=== PATIENT | female | born 1955 | race Caucasian/White ===

== ENCOUNTER 2018-07-01 09:25 | Inpatient (IN) | payer MEDICAID ==
[~2018-07-01] VITALS: Ht 165.1 cm; Wt 73.7 kg
[2018-07-01] MEDS ORDERED: CEFEPIME 2GM/50 ML (PMX) 50 ML IVPB STA (09:55)
[2018-07-01] MEDS ORDERED: VANCOMYCIN 1 GM (PMX) 250 ML IVPB ONE (10:00)
--- NOTE | 2018-07-01 11:28 | ERD ---
ER Documentation Chief Complaint Chief Complaint pt has leg wound with pus and redness x 3 months HPI This is a 62-year-old female who is here with a large right leg wound. She says that she felt like something bit her and she started scratching it. It started as a small bump but is progressively gotten worse over the past 3 months. She does not have any healthcare so she did not seek attention sooner. Now her wound has gradually spread and eroded into her soft tissue all across the anterior lateral part of her lower leg. She is denying any fever but has some mild pain. ROS All systems reviewed and are negative except as per history of present illness. Medications Home Meds No Active Prescriptions or Reported Meds Allergies Allergies: Coded Allergies: No Known Allergy (Unverified , 07/01/18) PMhx/Soc Medical and Surgical Hx: pt denies Surgical Hx History of Surgery: No Hx Neurological Disorder: No Hx Respiratory Disorders: No Hx Cardiac Disorders: Yes (HTN?) Hx Psychiatric Problems: No Hx Miscellaneous Medical Probl: No Hx Alcohol Use: No Hx Substance Use: No Hx Tobacco Use: No Smoking Status: Never smoker FmHx Family History: No coronary disease Physical Exam Vitals Vital Signs Date Temp Pulse Resp B/P (MAP) Pulse Ox O2 O2 Flow FiO2 Time Delivery Rate 07/01/18 97.6 90 18 180/89 100 09:30 (119) Physical Exam Const: Well-developed, well-nourished Head: Atraumatic, normocephalic Eyes: Normal Conjunctiva, PERRLA, EOMI, normal sclera, no nystagmus ENT: Normal External Ears, Nose and Mouth, moist mucus membranes. Neck: Full range of motion. No meningismus, no lymphadenopathy. Resp: Clear to auscultation bilaterally, no wheezing, rhonchi, rales Cardio: Regular rate and rhythm, no murmurs, S1 S2 present Abd: Soft, non tender x 4, non distended. Normal bowel sounds, no guarding or rebound, no pulsitile abdominal masses or bruits Skin: No petechiae or rashes, no ecchymosis , no maculopapular rash Back: No midline or flank tenderness Ext: No cyanosis, or edema, FROM x 4, the right lower leg has a very large area of finally demarcated but irregular shaped wound margins with severe erosion of the skin underneath with exposed muscle and subcutaneous tissue with granulation tissue. Wound margins are approximately 6 x 10 inches, neurovascularly intact x 4 Neur: Awake and alert, STR 5/5 x 4, sensation intact x 4, no focal findings, cerebellum intact Psych: Normal Mood and Affect Result Diagram: 07/01/1850 07/01/18 0950 Results 24 hrs Laboratory Tests Test 07/01/18 09:50 07/01/18 09:55 White Blood Count 11.5 10^3/ul Red Blood Count 4.32 10^6/ul Hemoglobin 12.7 g/dl Hematocrit 41.4 % Mean Corpuscular Volume 95.8 fl Mean Corpuscular Hemoglobin 29.4 pg Mean Corpuscular Hemoglobin Concent 30.7 g/dl Red Cell Distribution Width 12.5 % Platelet Count 257 10^3/UL Mean Platelet Volume 9.0 fl Immature Granulocytes % 0.400 % Neutrophils % 75.9 % Lymphocytes % 12.3 % Monocytes % 9.0 % Eosinophils % 1.6 % Basophils % 0.8 % Nucleated Red Blood Cells % 0.0 /100WBC Immature Granulocytes # 0.050 10^3/ul Neutrophils # 8.7 10^3/ul Lymphocytes # 1.4 10^3/ul Monocytes # 1.0 10^3/ul Eosinophils # 0.2 10^3/ul Basophils # 0.1 10^3/ul Nucleated Red Blood Cells # 0.0 10^3/ul Sodium Level 141 mmol/L Potassium Level 4.0 mmol/L Chloride Level 101 mmol/L Carbon Dioxide Level 29 mmol/L Anion Gap 11 Blood Urea Nitrogen 9 mg/dl Creatinine 0.40 mg/dl Est Glomerular Filtrat Rate mL/min > 60 mL/min Glucose Level 122 mg/dl Calcium Level 9.5 mg/dl Total Bilirubin 0.4 mg/dl Direct Bilirubin 0.00 mg/dl Indirect Bilirubin 0.4 mg/dl Aspartate Amino Transf (AST/SGOT) 22 IU/L Alanine Aminotransferase (ALT/SGPT) 15 IU/L Alkaline Phosphatase 110 IU/L Total Protein 7.9 g/dl Albumin 4.1 g/dl Globulin 3.80 g/dl Albumin/Globulin Ratio 1.07 POC Venous Lactate 1.4 mmol/L Current Medications Medications Dose Sig/Juan Start Time Status Last (Trade) Ordered Route PRN Stop Time Admin Dose Reason Admin Cefepime HCl 50 ml @ ONCE STAT 07/01/18 DC 07/01/18 100 mls/hr IVPB 09:55 10:09 07/01/18 10:24 Vancomycin 250 ml @ ONCE ONCE 07/01/18 07/01/18 HCl 125 mls/hr IVPB 10:00 10:28 07/01/18 11:59 Procedures/MDM The patient may have been bitten by a spider, perhaps of brown recluse due to the severe ulcerative lesion she has on her leg. She needs to be admitted to the hospital for IV antibiotic therapy with wound care. May need CT or MRI of her leg as well. Will admit to panel. Departure Diagnosis: Primary Impression: Open leg wound Encounter type: initial encounter Laterality: right Qualified Codes: S81.801A - Unspecified open wound, right lower leg, initial encounter Condition: Stable JUAN MÉNDEZ DO Jul 01, 2018 11:28
[2018-07-01] MEDS ORDERED: ACETAMINOPHEN 325 MG TAB PO PRN ×2 (12:00→13:00)
[2018-07-01] MEDS ORDERED: ONDANSETRON 4 MG INJ IV PRN ×2 (12:00→13:00)
--- NOTE | 2018-07-01 12:28 | HP ---
Date/Time of Note Date/Time of Note DATE: 07/01/18 TIME: 12:28 Assessment/Plan VTE Prophylaxis Pharmacological prophylaxis: NA/contraindicated Pharm contraindication: surgical contra Lines/Catheters IV C[facility]ter Type (from [facility]): [facility] Assessment/Plan Hospital Course 62-year-old female who denies any significant past medical history other than hypertension (not taking antihypertensives), who came to the emergency room with right lower extremity wound/ulcer that has been progressively becoming worse over the past 3 months, who will be admitted to inpatient setting for further treatment and evaluation. 1. Right lower extremity soft tissue skin infection. -Etiology unclear. -Differentials include necrotizing fasciitis Vs pyoderma gangrenosum Vs clostridial myonecrosis Vs pyomyositis. -Given the slow progress, the diagnosis does not favor necrotizing infection. -Obtain stat CT scan of the right lower extremity. -Start the patient on carbapenem+Vanco for MRSA coverage+Clindamycin (for its antitoxin and other effects against toxin-elaborating strains of streptococci and staphylococci). -Obtain surgical consult and infectious diseases consult. 2. Hypertension. -Will start the patient on appropriate antihypertensives. Plan: The patient will be admitted to inpatient medical surgical floor. The patient will be kept n.p.o. except for medications in anticipation for any surgical exploration.. The patient will be started on DVT prophylaxis. The patient will remain a full code. Activities will be bedrest. The rest of the patient's management will be based on the clinical course, inputs from consultants, and the results of diagnostic studies. Based on the patient's clinical presentation, she most probably requires more than 2 midnights stay for further management and evaluation of her clinical presentation. The patient was seen in collaboration with Dr. Varela. Result Diagram: 07/01/18 0950 07/01/18 0950 Results 24hrs Laboratory Tests Test 07/01/18 09:50 07/01/18 09:55 White Blood Count 11.5 H Red Blood Count 4.32 Hemoglobin 12.7 Hematocrit 41.4 Mean Corpuscular Volume 95.8 Mean Corpuscular Hemoglobin 29.4 Mean Corpuscular Hemoglobin Concent 30.7 L Red Cell Distribution Width 12.5 Platelet Count 257 Mean Platelet Volume 9.0 Immature Granulocytes % 0.400 Neutrophils % 75.9 Lymphocytes % 12.3 L Monocytes % 9.0 Eosinophils % 1.6 Basophils % 0.8 Nucleated Red Blood Cells % 0.0 Immature Granulocytes # 0.050 H Neutrophils # 8.7 H Lymphocytes # 1.4 Monocytes # 1.0 H Eosinophils # 0.2 Basophils # 0.1 Nucleated Red Blood Cells # 0.0 Sodium Level 141 Potassium Level 4.0 Chloride Level 101 Carbon Dioxide Level 29 Anion Gap 11 Blood Urea Nitrogen 9 Creatinine 0.40 L Est Glomerular Filtrat Rate mL/min > 60 Glucose Level 122 Calcium Level 9.5 Total Bilirubin 0.4 Direct Bilirubin 0.00 Indirect Bilirubin 0.4 Aspartate Amino Transf (AST/SGOT) 22 Alanine Aminotransferase (ALT/SGPT) 15 Alkaline Phosphatase 110 Total Protein 7.9 Albumin 4.1 Globulin 3.80 H Albumin/Globulin Ratio 1.07 POC Venous Lactate 1.4 HPI/ROS Admit Date/Time Admit Date/Time Hx of Present Illness Reason for admission: Worsening right leg wound. Consultants. 1 Sam Turk MD, Infectious Diseases. 2. Yusef Grullon DPM, Podiatry. This is a 62-year-old female who denies any significant past medical history other than history of hypertension, but not on any antihypertensives. The patient verbalized that she had some kind of insect bite to the right anaya approximately 3 months ago. Afterwards, she had a pimple-like lesion that grew gradually to become a big ulcer. The patient was complaining of significant pain in the area. The wound/ulcer was also draining purulent secretions. The patient has been in denial versus was ignoring this ulcer/wound until it became worse. The patient verbalized that she did not have any healthcare insurance and hence she delayed seeking medical attention. The patient denied any fevers or chills. In the emergency room, the patient was noticed to have minimal leukocytosis. The patient did not have any lactic acidosis. The patient's blood pressure was elevated (180/89). The patient was treated with a single dose of IV vancomycin and cefepime in the emergency room. ROS Constitutional: no complaints Eyes: no complaints ENT: no complaints Respiratory: no complaints Cardiovascular: no complaints Gastrointestinal: no complaints Genitourinary: no complaints Musculoskeletal: bone/joint pain, swelling Skin: skin lesions Neurologic: no complaints Endocrine: no complaints Lymphatic: no complaints Psychological: no complaints Immunologic: no complaints PMH/Family/Social Past Medical History 1. Hypertension, not on any antihypertensives. Medications Current Medications Ondansetron HCl (Zofran Inj) 4 mg BRIDGE ORDER PRN IV NAUSEA/VOMITING; Start 07/01/18 at 12:00; Stop 07/02/18 at 11:59 Acetaminophen (Tylenol Tab) 650 mg ER BRIDGE PRN PO .MILD PAIN 1-3 OR TEMP; Start 07/01/18 at 12:00; Stop 07/02/18 at 11:59 Coded Allergies: No Known Allergy (Unverified , 07/01/18) Past Surgical History Past Surgical Hx: no surgical history Family History Significant Family History: no pertinent family hx Social History Works as a caregiver. Alcohol Use: none Smoking Status: Never smoker Drug Use: none Exam/Review of Systems Vital Signs Vitals Vital Signs Date Temp Pulse Resp B/P (MAP) Pulse Ox O2 O2 Flow FiO2 Time Delivery Rate 07/01/18 97.8 74 18 162/93 100 Room Air 11:09 (116) Exam Exam General: Adequately build 62 year-old female lying in bed in no apparent distress. HEENT: Normocephalic, atraumatic. Eyes: Anicteric sclerae, conjunctivae clear. ENT: Nasal septum midline, oral mucosa moist. Neck supple, no JVD noticed. Respiratory: Bilaterally clear breath sounds. No use of accessory muscles of respiration. No adventitious breath sounds. Cardiovascular: S1, S2 heard. Regular rate and rhythm. Abdomen: Soft, nontender, and nondistended. Bowel sounds positive in all 4 quadrants. Genitourinary: Deferred. Extremities: No cyanosis, no clubbing. Large right lower extremity wound on the anaya on the lateral aspect with exposure of deep tissues. Peripheral pulses palpable. Neurologic: Cranial nerves II through XII grossly intact. The patient is awake, alert, and oriented. RENÉE TOLEDO NP Jul 01, 2018 12:28
[2018-07-01] MEDS ORDERED: NACL 0.9% 3 ML SYG IV SCH (13:00)
[2018-07-01] MEDS ORDERED: VANCOMYCIN IV PER PHARMACY XX SCH (13:00)
[2018-07-01] MEDS ORDERED: SOD CHLORIDE 0.9% 100 ML ONE (13:05)
[2018-07-01] MEDS ORDERED: IOHEXOL 300MG/ML 150 ML BTL ONE (13:05)
[2018-07-01] MEDS ORDERED: TETANUS IMMUNE GLOB 250 UNIT SYG IM ONE (13:30)
[2018-07-01] MEDS: CLINDAMYCIN 900 MG/D5W (PMX) 50 ML IVPB SCH ×2 (13:37→17:57)
[2018-07-01] MEDS: SOD CHLORIDE 0.9% 1,000 ML IV SCH ×2 (13:37→23:00)
[2018-07-01] MEDS: LOSARTAN 25 MG TAB PO SCH (13:37)
--- NOTE | 2018-07-01 14:54 | CONS ---
Assessment/Plan Assessment/Plan Assessment/Plan (Daily) Chronic Right lower extremity ulceration mixed etiology RLE cellulitis Venous insufficiency Edema Leukocytosis Plan Patient is admitted and recommend initiation of empiric IV antibiotic therapy. MRI and CT images were reviewed and no sign of osteomyelitis and no soft tissue gas. Plan for tuesday procedure of wound debridement and biopsy. Wound cultures to be obtained and non invasive vascular studies and venous studies pending. Dressing changes daily with dakins irrigation, betadine 4x4 gauze and wrap with kerlix and anderson wrap. Elevate and offload with pillows. Appreciate ID recommendations. Consultation Date/Type/Reason Admit Date/Time Date/Time of Note DATE: 07/01/18 TIME: 14:54 Hx of Present Illness 62 y/o F patient who presents to the ED with a chronic ulcer to the right lower extremity that began three months ago. Patient states she is unsure of how it began but believes it was possibly due to an insect bite. Patient had attempted to manage the ulcer her self with alcohol wipes and topical antibiotic creams but the ulceration worsened over time. Patient states she felt fevers and chills, denies nausea, vomiting, chest pains or shortness of breath. Patient denies trauma to the lower extremity and denies taking any prescribed mediation. Reports mild burning and throbbing pain localized to the area of the wound rating it a 4/10. Pain is worsened with direct pressure. Patient did also relate a vein stripping procedure done 20 years ago, which she did report recurrence of varicosities. ROS Negative except for HPI Past Medical History Medical History: hypertension Home Meds No Active Prescriptions or Reported Meds Medications Current Medications Meropenem/Sodium Chloride 50 ml @ 100 mls/hr Q8 IVPB ; Start 07/01/18 at 14:00 Vancomycin HCl (Vanco Iv Per Pharmacy) VANCOMYCIN PER PHARMACY PER PROTOCOL XX ; Start 07/01/18 at 13:00 Clindamycin HCl/ Dextrose 50 ml @ 50 mls/hr Q6 IVPB Last administered on 07/01/18at 13:37; Admin Dose 50 MLS/HR; Start 07/01/18 at 13:00 Sodium Chloride 1,000 ml @ 100 mls/hr Q10H IV Last administered on 07/01/18at 13:37; Admin Dose 100 MLS/HR; Start 07/01/18 at 13:00 IV Flush (NS 3 ml) 3 ml PER PROTOCOL IV ; Start 07/01/18 at 13:00 Ondansetron HCl (Zofran Inj) 4 mg Q6H PRN IV NAUSEA/VOMITING; Start 07/01/18 at 13:00 Acetaminophen (Tylenol Tab) 650 mg Q6H PRN PO .PAIN 1-3 OR TEMP; Start 07/01/18 at 13:00 Acetaminophen/ Hydrocodone Bitart (Coward (5/325)) 1 tab Q6H PRN PO .MOD PAIN 4- 6; Start 07/01/18 at 13:00 Morphine Sulfate (morphine) 2 mg Q4H PRN IV .SEVERE PAIN 7-10; Start 07/01/18 a t 13:00 Losartan Potassium (Cozaar) 25 mg DAILY PO Last administered on 07/01/18at 13:37; Admin Dose 25 MG; Start 07/01/18 at 13:30 Vancomycin/Sodium Chloride 250 ml @ 125 mls/hr Q12H IVPB ; Start 07/01/18 at 23:00 Allergies: Coded Allergies: No Known Allergy (Unverified , 07/01/18) Past Surgical History Reports vein stripping procedure to bilateral lower extremities 20 years ago. Family History Significant Family History: no pertinent family hx Social History Alcohol Use: none Smoking Status: Never smoker Drug Use: none Exam/Review of Systems Exam Vitals Vital Signs Date Temp Pulse Resp B/P (MAP) Pulse Ox O2 O2 Flow FiO2 Time Delivery Rate 07/01/18 86 18 165/87 100 Room Air 14:26 (113) 07/01/18 97.8 11:09 Exam DP/PT pulses palpable Popliteal pulses weakly palpable Protective sensations intact pedal hairs present Right lateral leg ulcer mid diaphyseal region measuring 12 x 8 x 0.4cm with fibrotic and granular wound base. There is significant slough noted to the ulcer site. There is surrounding erythema, no proximal streaking. Purulence is appreciated within the wound bed, no active drainage. No probing to bone Muscle strength 5/5 in all compartments of the foot No pain with calf squeeze, no pain along achilles tendon, no pain with calcaneus RLE MRI IMPRESSION: No evidence of osteomyelitis. Extensive soft tissue and fascial edema with large wound or ulcer at the anterolateral aspect of the leg. Findings suggest cellulitis/fasciitis RLE CT IMPRESSION: Extensive soft tissue swelling with wound or ulcer at the anterolateral aspect of the leg. No soft tissue gas to suggest necrotizing fasciitis. Mild periosteal reaction or thickening of the distal fibular shaft is age indeterminate. This may be chronic, however consider MRI if there is any concern for osteomyelitis. Results Result Diagram: 07/01/18 0950 07/01/18 0950 Results 24hrs Laboratory Tests Test 07/01/18 09:40 07/01/18 09:50 07/01/18 09:55 Erythrocyte Sedimentation Rate 39 H Hemoglobin A1c 5.1 C-Reactive Protein 4.9 H White Blood Count 11.5 H Red Blood Count 4.32 Hemoglobin 12.7 Hematocrit 41.4 Mean Corpuscular Volume 95.8 Mean Corpuscular Hemoglobin 29.4 Mean Corpuscular Hemoglobin Concent 30.7 L Red Cell Distribution Width 12.5 Platelet Count 257 Mean Platelet Volume 9.0 Immature Granulocytes % 0.400 Neutrophils % 75.9 Lymphocytes % 12.3 L Monocytes % 9.0 Eosinophils % 1.6 Basophils % 0.8 Nucleated Red Blood Cells % 0.0 Immature Granulocytes # 0.050 H Neutrophils # 8.7 H Lymphocytes # 1.4 Monocytes # 1.0 H Eosinophils # 0.2 Basophils # 0.1 Nucleated Red Blood Cells # 0.0 Sodium Level 141 Potassium Level 4.0 Chloride Level 101 Carbon Dioxide Level 29 Anion Gap 11 Blood Urea Nitrogen 9 Creatinine 0.40 L Est Glomerular Filtrat Rate mL/min > 60 Glucose Level 122 Calcium Level 9.5 Total Bilirubin 0.4 Direct Bilirubin 0.00 Indirect Bilirubin 0.4 Aspartate Amino Transf (AST/SGOT) 22 Alanine Aminotransferase (ALT/SGPT) 15 Alkaline Phosphatase 110 Total Protein 7.9 Albumin 4.1 Globulin 3.80 H Albumin/Globulin Ratio 1.07 POC Venous Lactate 1.4 Medications Medication Current Medications Meropenem/Sodium Chloride 50 ml @ 100 mls/hr Q8 IVPB ; Start 07/01/18 at 14:00 Vancomycin HCl (Vanco Iv Per Pharmacy) VANCOMYCIN PER PHARMACY PER PROTOCOL XX ; Start 07/01/18 at 13:00 Clindamycin HCl/ Dextrose 50 ml @ 50 mls/hr Q6 IVPB Last administered on 07/01/18at 13:37; Admin Dose 50 MLS/HR; Start 07/01/18 at 13:00 Sodium Chloride 1,000 ml @ 100 mls/hr Q10H IV Last administered on 07/01/18at 13:37; Admin Dose 100 MLS/HR; Start 07/01/18 at 13:00 IV Flush (NS 3 ml) 3 ml PER PROTOCOL IV ; Start 07/01/18 at 13:00 Ondansetron HCl (Zofran Inj) 4 mg Q6H PRN IV NAUSEA/VOMITING; Start 07/01/18 at 13:00 Acetaminophen (Tylenol Tab) 650 mg Q6H PRN PO .PAIN 1-3 OR TEMP; Start 07/01/18 at 13:00 Acetaminophen/ Hydrocodone Bitart (Coward (5/325)) 1 tab Q6H PRN PO .MOD PAIN 4- 6; Start 07/01/18 at 13:00 Morphine Sulfate (morphine) 2 mg Q4H PRN IV .SEVERE PAIN 7-10; Start 07/01/18 at 13:00 Losartan Potassium (Cozaar) 25 mg DAILY PO Last administered on 07/01/18at 13:37; Admin Dose 25 MG; Start 07/01/18 at 13:30 Vancomycin/Sodium Chloride 250 ml @ 125 mls/hr Q12H IVPB ; Start 07/01/18 at 23:00 KELY PATE DPM Jul 01, 2018 14:54
[2018-07-01] MEDS: MEROPENEM 1 GM/50ML(PMX) 50 ML IVPB SCH ×2 (15:09→21:41)
--- NOTE | 2018-07-01 15:30 | CONS ---
DATE OF ADMISSION: 07/01/2018 DATE OF CONSULTATION: 07/01/2018 TYPE OF CONSULTATION: Infectious disease. REASON FOR CONSULTATION: Antibiotic management. HISTORY OF PRESENT ILLNESS: An Martinez is a 62-year-old female who comes in wit h leg wound, redness and purulence for 3 months. The patient felt that she had something bite her an d started to scratch the wound. It started as a small bump but progressively got worse over the last 3 months and has gradually spread and eroded into her soft tissue along the anterolateral aspect of her lower leg. PAST MEDICAL HISTORY: Positive for hypertension. FAMILY HISTORY: Noncontributory. SOCIAL HISTORY: She does not smoke, drink or abuse drugs. ALLERGIES: None to penicillin, sulfa or foods. MEDICATIONS: Per chart. REVIEW OF SYSTEMS: As per HPI. PHYSICAL EXAMINATION: GENERAL: The patient is a well-developed, well-nourished female who is awake, responsive, in no acut e distress. VITAL SIGNS: Stable. Blood pressure is somewhat elevated 180/89. SKIN: Without generalized rash. HEENT: Within normal limits. NECK: Supple. LYMPH NODES: None palpable. CHEST: Decreased breath sounds at the bases. HEART: Without murmur or gallop. ABDOMEN: Soft, nontender, nondistended, without organosplenomegaly or masses. EXTREMITIES: Right lower leg has a very large area of finely demarcated but irregularly shaped wound margins with severe erosion of the skin underneath with exposed muscle and subcutaneous tissue. Wou nd margin is 6 x 10 inches. RECTAL AND GENITAL: Deferred. NEUROLOGIC: No focal neurological abnormality. LABORATORY DATA: On admission, her white count was 11.5 with 76 neutrophils, H and H 12.7 and 41.4, platelet count 257,000. BUN and creatinine 9/0.4. IMPRESSION AND PLAN: The patient was started on vancomycin and cefepime. My feeling is that she pro bably has MRSA. She may have been bitten by a spider, but I doubt it. She needs IV antibiotics. Sh e may need some imaging studies. She was started on vancomycin, clindamycin and meropenem, which may be some overkill but I think that they were thinking of possibly a necrotizing fasciitis, which I do not think the case. She was started on vancomycin and cefepime and vancomycin, clindamycin and deedee penem. If she is stable for 24 hours, we will deescalate her antibiotics. I will dictate my finding s to the hospitalists. Dictated By: EDUARDO YOUNG MD, JD/WU Conf#: [id number] DID#: [id number]
[2018-07-01] MEDS: HYDROCODONE/APAP (5/325) TAB PO PRN (17:57)
[2018-07-01 18:16] VITALS: BP 143/80; PULSE 86; RESP 18
[2018-07-01 20:21] VITALS: BP 99/57; PULSE 78; RESP 20
[2018-07-01 21:05] VITALS: Ht 165.1 cm; Wt 73.7 kg
[2018-07-01] MEDS: VANCOMYCIN 750 MG (PMX) 250 ML IVPB SCH (23:54)
[2018-07-02] MEDS ORDERED: traZODone 50 MG TAB PO ONE (02:00)
[2018-07-02] MEDS: CLINDAMYCIN 900 MG/D5W (PMX) 50 ML IVPB SCH ×2 (02:05→06:03)
[2018-07-02 02:26] VITALS: BP 102/58; PULSE 78; RESP 20
[2018-07-02] MEDS: MEROPENEM 1 GM/50ML(PMX) 50 ML IVPB SCH ×3 (05:28→21:52)
[2018-07-02 08:13] VITALS: BP 127/69; PULSE 77; RESP 16
[2018-07-02] MEDS: SOD CHLORIDE 0.9% 1,000 ML IV SCH ×2 (08:32→19:00)
[2018-07-02] MEDS: LOSARTAN 25 MG TAB PO SCH (08:32)
--- NOTE | 2018-07-02 10:50 | PN ---
Date/Time of Note Date/Time of Note DATE: 07/02/18 TIME: 10:49 Assessment/Plan VTE Prophylaxis Risk score (from Ns)>0 risk: 5 SCD applied (from [facility] [place]): No SCD contraindicated: other Pharmacological prophylaxis: NA/contraindicated Pharm contraindication: surgical contra Lines/Catheters IV Catheter Type (from [facility]): Peripheral IV Urinary Cath still in place: No Assessment/Plan Hospital Course SUBJECTIVE: Continues to have a low-grade fever. OBJECTIVE: Physical Exam General: Adequately build 62 year-old female lying in bed in no apparent distress. HEENT: Normocephalic, atraumatic. Eyes: Anicteric sclerae, conjunctivae clear. ENT: Nasal septum midline, oral mucosa moist. Neck supple, no JVD noticed. Respiratory: Bilaterally clear breath sounds. No use of accessory muscles of respiration. No adventitious breath sounds. Cardiovascular: S1, S2 heard. Regular rate and rhythm. Abdomen: Soft, nontender, and nondistended. Bowel sounds positive in all 4 quadrants. Genitourinary: Deferred. Extremities: No cyanosis, no clubbing. Large right lower extremity wound on the anaya on the lateral aspect with exposure of deep tissues. Peripheral pulses palpable. Neurologic: Cranial nerves II through XII grossly intact. The patient is awake, alert, and oriented. Labs & Vitals per chart ASSESSMENT & PLAN 62-year-old female who denies any significant past medical history other than hypertension (not taking antihypertensives), who came to the emergency room with right lower extremity wound/ulcer that has been progressively becoming worse over the past 3 months, who will be admitted to inpatient setting for further treatment and evaluation. 1. Right lower extremity soft tissue skin infection. -Etiology unclear. -Left lower extremity CT scan negative for any gas to suggest necrotizing fasciitis. -Left lower extremity MRI negative for any osteomyelitis. -Continue the patient on carbapenem+Vanco for MRSA coverage. -Being followed by ID and podiatry. 2. Hypertension. -Continue the patient on appropriate antihypertensives. 3. Peripheral vascular disease. -Lower extremity arterial Doppler study showing elevated peak systolic velocity in the left popliteal artery, consistent with 25 to 50% stenosis of the vessel. -Monophasic waveforms in the left posterior tibial artery, indicating of inflow disease due to upstream stenosis. 4. Fluids, electrolytes, and nutrition. - Low-cholesterol diet. 5. DVT prophylaxis. -Left lower extremity SCD. 6. Plan. -Continue antimicrobials as per ID. -Await surgical debridement with biopsy of the lesion on 07/03/2018. The patient was seen in collaboration with Dr. Varela. Result Diagram: 07/02/18 0516 07/02/18 0516 Results 24hrs Laboratory Tests Test 07/02/18 05:16 White Blood Count 7.7 # Red Blood Count 3.76 L Hemoglobin 10.8 L Hematocrit 33.0 #L Mean Corpuscular Volume 87.8 Mean Corpuscular Hemoglobin 28.7 L Mean Corpuscular Hemoglobin Concent 32.7 Red Cell Distribution Width 12.4 Platelet Count 299 Mean Platelet Volume 9.2 Immature Granulocytes % 0.500 H Neutrophils % 57.5 Lymphocytes % 26.2 Monocytes % 12.0 H Eosinophils % 2.9 Basophils % 0.9 Nucleated Red Blood Cells % 0.0 Immature Granulocytes # 0.040 H Neutrophils # 4.4 Lymphocytes # 2.0 Monocytes # 0.9 Eosinophils # 0.2 Basophils # 0.1 Nucleated Red Blood Cells # 0.0 Prothrombin Time 13.9 Prothrombin Time Ratio 1.1 INR International Normalized Ratio 1.06 Activated Partial Thromboplast Time 33.6 Sodium Level 139 Potassium Level 3.5 Chloride Level 103 Carbon Dioxide Level 30 Anion Gap 6 Blood Urea Nitrogen 10 Creatinine 0.50 Est Glomerular Filtrat Rate mL/min > 60 Glucose Level 94 Lactic Acid Level 0.8 Calcium Level 8.7 Phosphorus Level 4.0 Magnesium Level 1.8 Total Bilirubin 0.4 Direct Bilirubin 0.00 Indirect Bilirubin 0.4 Aspartate Amino Transf (AST/SGOT) 14 L Alanine Aminotransferase (ALT/SGPT) 17 Alkaline Phosphatase 80 Total Protein 6.1 # Albumin 3.0 #L Globulin 3.10 Albumin/Globulin Ratio 0.96 Triglycerides Level 111 Cholesterol Level 124 LDL Cholesterol, Calculated 69 HDL Cholesterol 33 L Cholesterol/HDL Ratio 3.7 Exam/Review of Systems Exam Vitals Vital Signs Date Temp Pulse Resp B/P (MAP) Pulse Ox O2 O2 Flow FiO2 Time Delivery Rate 07/02/18 99.5 77 16 127/69 92 08:13 (88) 07/01/18 Room Air 16:44 Intake and Output 07/01/18 07/01/18 07/02/18 1515:00 23:00 07:00 IntakeIntake Total 600 ml 952 ml BalanceBalance 600 ml 952 ml Results Results 24hrs Laboratory Tests Test 07/02/18 05:16 White Blood Count 7.7 # Red Blood Count 3.76 L Hemoglobin 10.8 L Hematocrit 33.0 #L Mean Corpuscular Volume 87.8 Mean Corpuscular Hemoglobin 28.7 L Mean Corpuscular Hemoglobin Concent 32.7 Red Cell Distribution Width 12.4 Platelet Count 299 Mean Platelet Volume 9.2 Immature Granulocytes % 0.500 H Neutrophils % 57.5 Lymphocytes % 26.2 Monocytes % 12.0 H Eosinophils % 2.9 Basophils % 0.9 Nucleated Red Blood Cells % 0.0 Immature Granulocytes # 0.040 H Neutrophils # 4.4 Lymphocytes # 2.0 Monocytes # 0.9 Eosinophils # 0.2 Basophils # 0.1 Nucleated Red Blood Cells # 0.0 Prothrombin Time 13.9 Prothrombin Time Ratio 1.1 INR International Normalized Ratio 1.06 Activated Partial Thromboplast Time 33.6 Sodium Level 139 Potassium Level 3.5 Chloride Level 103 Carbon Dioxide Level 30 Anion Gap 6 Blood Urea Nitrogen 10 Creatinine 0.50 Est Glomerular Filtrat Rate mL/min > 60 Glucose Level 94 Lactic Acid Level 0.8 Calcium Level 8.7 Phosphorus Level 4.0 Magnesium Level 1.8 Total Bilirubin 0.4 Direct Bilirubin 0.00 Indirect Bilirubin 0.4 Aspartate Amino Transf (AST/SGOT) 14 L Alanine Aminotransferase (ALT/SGPT) 17 Alkaline Phosphatase 80 Total Protein 6.1 # Albumin 3.0 #L Globulin 3.10 Albumin/Globulin Ratio 0.96 Triglycerides Level 111 Cholesterol Level 124 LDL Cholesterol, Calculated 69 HDL Cholesterol 33 L Cholesterol/HDL Ratio 3.7 Medications Medication Current Medications Meropenem/Sodium Chloride 50 ml @ 100 mls/hr Q8 IVPB Last administered on 07/02/18at 05:28; Admin Dose 100 MLS/HR; Start 07/01/18 at 14:00 Vancomycin HCl (Vanco Iv Per Pharmacy) VANCOMYCIN PER PHARMACY PER PROTOCOL XX ; Start 07/01/18 at 13:00 Clindamycin HCl/ Dextrose 50 ml @ 50 mls/hr Q6 IVPB Last administered on 07/02/18at 06:03; Admin Dose 50 MLS/HR; Start 07/01/18 at 13:00 Sodium Chloride 1,000 ml @ 100 mls/hr Q10H IV Last administered on 07/02/18at 08:32; Admin Dose 100 MLS/HR; Start 07/01/18 at 13:00 IV Flush (NS 3 ml) 3 ml PER PROTOCOL IV ; Start 07/01/18 at 13:00 Ondansetron HCl (Zofran Inj) 4 mg Q6H PRN IV NAUSEA/VOMITING; Start 07/01/18 at 13:00 Acetaminophen (Tylenol Tab) 650 mg Q6H PRN PO .PAIN 1-3 OR TEMP; Start 07/01/18 at 13:00 Acetaminophen/ Hydrocodone Bitart ([place] (5/325)) 1 tab Q6H PRN PO .MOD PAIN 4- 6 Last administered on 07/01/18at 17:57; Admin Dose 1 TAB; Start 07/01/18 at 13:00 Morphine Sulfate (morphine) 2 mg Q4H PRN IV .SEVERE PAIN 7-10; Start 07/01/18 at 13:00 Losartan Potassium (Cozaar) 25 mg DAILY PO Last administered on 07/02/18at 08:32; Admin Dose 25 MG; Start 07/01/18 at 13:30 Vancomycin/Sodium Chloride 250 ml @ 125 mls/hr Q12H IVPB Last administered on 07/01/18at 23:54; Admin Dose 125 MLS/HR; Start 07/01/18 at 23:00 Sodium Hypochlorite (Dakins Diluted ()) 1 applic DAILY TP ; Start 07/02/18 at 10:00 RENÉE TOLEDO NP Jul 02, 2018 10:50
[2018-07-02] MEDS: VANCOMYCIN 750 MG (PMX) 250 ML IVPB SCH ×3 (10:57→23:09)
--- NOTE | 2018-07-02 13:22 | CONS ---
Assessment/Plan Assessment/Plan Hospital Course (Demo Recall) Patient is alert sitting on the edge of the bed looks comfortable she is afebrile family at bedside WBC 7.7 no shift no bands BUN 10 creatinine 0.50 Microbiology: Blood cultures negative, right lower extremity drainage culture growing staph aureus, strep, gram-negative rods Antimicrobials: Vancomycin, meropenem Physical examination: Well-nourished well-developed elderly woman who is awake in no distress. Head atraumatic normocephalic sclera nonicteric. Neck is supple. Chest rise symmetrical breath sounds clear. Heart: S1-S2. Abdomen soft bowel sounds present. Extremities with right lower extremity dressing with purulent and bloody drainage Assessment: 1. Right lower extremity cellulitis, chronic wound 2. Peripheral arterial disease Plan: Patient remains stable, podiatry follows plan for debridement tomorrow with biopsy, await for final cultures Consultation Date/Type/Reason Admit Date/Time Jul 01, 2018 at 11:42 Initial Consult Date Type of Consult id Date/Time of Note DATE: 07/02/18 TIME: 13:22 Exam/Review of Systems Exam Vitals Vital Signs Date Temp Pulse Resp B/P (MAP) Pulse Ox O2 O2 Flow FiO2 Time Delivery Rate 07/02/18 99.5 77 16 127/69 92 08:13 (88) 07/01/18 Room Air 16:44 Intake and Output 07/01/18 07/01/18 07/02/18 1515:00 23:00 07:00 IntakeIntake Total 600 ml 952 ml BalanceBalance 600 ml 952 ml Results Result Diagram: 07/02/18 0516 07/02/18 0516 Results 24hrs Laboratory Tests Test 07/02/18 05:16 White Blood Count 7.7 # Red Blood Count 3.76 L Hemoglobin 10.8 L Hematocrit 33.0 #L Mean Corpuscular Volume 87.8 Mean Corpuscular Hemoglobin 28.7 L Mean Corpuscular Hemoglobin Concent 32.7 Red Cell Distribution Width 12.4 Platelet Count 299 Mean Platelet Volume 9.2 Immature Granulocytes % 0.500 H Neutrophils % 57.5 Lymphocytes % 26.2 Monocytes % 12.0 H Eosinophils % 2.9 Basophils % 0.9 Nucleated Red Blood Cells % 0.0 Immature Granulocytes # 0.040 H Neutrophils # 4.4 Lymphocytes # 2.0 Monocytes # 0.9 Eosinophils # 0.2 Basophils # 0.1 Nucleated Red Blood Cells # 0.0 Prothrombin Time 13.9 Prothrombin Time Ratio 1.1 INR International Normalized Ratio 1.06 Activated Partial Thromboplast Time 33.6 Sodium Level 139 Potassium Level 3.5 Chloride Level 103 Carbon Dioxide Level 30 Anion Gap 6 Blood Urea Nitrogen 10 Creatinine 0.50 Est Glomerular Filtrat Rate mL/min > 60 Glucose Level 94 Lactic Acid Level 0.8 Calcium Level 8.7 Phosphorus Level 4.0 Magnesium Level 1.8 Total Bilirubin 0.4 Direct Bilirubin 0.00 Indirect Bilirubin 0.4 Aspartate Amino Transf (AST/SGOT) 14 L Alanine Aminotransferase (ALT/SGPT) 17 Alkaline Phosphatase 80 Total Protein 6.1 # Albumin 3.0 #L Globulin 3.10 Albumin/Globulin Ratio 0.96 Triglycerides Level 111 Cholesterol Level 124 LDL Cholesterol, Calculated 69 HDL Cholesterol 33 L Cholesterol/HDL Ratio 3.7 Medications Medication Current Medications Meropenem/Sodium Chloride 50 ml @ 100 mls/hr Q8 IVPB Last administered on 07/02/18at 05:28; Admin Dose 100 MLS/HR; Start 07/01/18 at 14:00 Vancomycin HCl (Vanco Iv Per Pharmacy) VANCOMYCIN PER PHARMACY PER PROTOCOL XX ; Start 07/01/18 at 13:00 Sodium Chloride 1,000 ml @ 100 mls/hr Q10H IV Last administered on 07/02/18at 08:32; Admin Dose 100 MLS/HR; Start 07/01/18 at 13:00 IV Flush (NS 3 ml) 3 ml PER PROTOCOL IV ; Start 07/01/18 at 13:00 Ondansetron HCl (Zofran Inj) 4 mg Q6H PRN IV NAUSEA/VOMITING; Start 07/01/18 at 13:00 Acetaminophen (Tylenol Tab) 650 mg Q6H PRN PO .PAIN 1-3 OR TEMP; Start 07/01/18 at 13:00 Acetaminophen/ Hydrocodone Bitart ([place] (5/325)) 1 tab Q6H PRN PO .MOD PAIN 4- 6 Last administered on 07/01/18at 17:57; Admin Dose 1 TAB; Start 07/01/18 at 13:00 Morphine Sulfate (morphine) 2 mg Q4H PRN IV .SEVERE PAIN 7-10; Start 07/01/18 at 13:00 Losartan Potassium (Cozaar) 25 mg DAILY PO Last administered on 07/02/18at 08:32; Admin Dose 25 MG; Start 07/01/18 at 13:30 Vancomycin/Sodium Chloride 250 ml @ 125 mls/hr Q12H IVPB Last administered on 07/02/18at 10:57; Admin Dose 125 MLS/HR; Start 07/01/18 at 23:00 Sodium Hypochlorite (Dakins Diluted ()) 1 applic DAILY TP ; Start 07/02/18 at 10:00 Miscellaneous Information (*Rx Drug Level Order Reminder*) VANCO TROUGH ON 06/13... 2200 ONCE XX ; Start 07/02/18 at 22:00; Stop 07/02/18 at 22:01 SONALI DE ANDA NP Jul 02, 2018 13:22
[2018-07-02] MEDS: HYDROCODONE/APAP (5/325) TAB PO PRN ×2 (13:41→21:57)
[2018-07-02] MEDS: DAKINS 0.0125%(1/40) 473 ML SOLUTION TP SCH (14:17)
[2018-07-02 14:30] VITALS: BP 117/67; PULSE 68; RESP 18
[2018-07-02 20:20] VITALS: BP 162/78; PULSE 70; RESP 18
[2018-07-02 22:00] VITALS: BP 130/70
[2018-07-03] MEDS: SOD CHLORIDE 0.9% 1,000 ML IV SCH ×2 (01:24→15:27)
[2018-07-03 02:13] VITALS: BP 124/66; PULSE 68; RESP 18
[2018-07-03] MEDS: MEROPENEM 1 GM/50ML(PMX) 50 ML IVPB SCH ×2 (05:28→13:51)
--- NOTE | 2018-07-03 07:37 | PN ---
Date/Time of Note Date/Time of Note DATE: 07/03/18 TIME: 07:35 Assessment/Plan VTE Prophylaxis Risk score (from Nsg)>0 risk: 5 SCD applied (from Nsg): Yes Pharmacological prophylaxis: LMWH Lines/Catheters IV Catheter Type (from Nrsg): Peripheral IV Urinary Cath still in place: No Assessment/Plan Hospital Course SUBJECTIVE: Continues to RLE pain. OBJECTIVE: Physical Exam General: Adequately build 62 year-old female lying in bed in no apparent distress. HEENT: Normocephalic, atraumatic. Eyes: Anicteric sclerae, conjunctivae clear. ENT: Nasal septum midline, oral mucosa moist. Neck supple, no JVD noticed. Respiratory: Bilaterally clear breath sounds. No use of accessory muscles of respiration. No adventitious breath sounds. Cardiovascular: S1, S2 heard. Regular rate and rhythm. Abdomen: Soft, nontender, and nondistended. Bowel sounds positive in all 4 quadrants. Genitourinary: Deferred. Extremities: No cyanosis, no clubbing. RLE dressing. Peripheral pulses palpable. Neurologic: Cranial nerves II through XII grossly intact. The patient is awake, alert, and oriented. Labs & Vitals per chart ASSESSMENT & PLAN 62-year-old female who denies any significant past medical history other than hypertension (not taking antihypertensives), who came to the emergency room with right lower extremity wound/ulcer that has been progressively becoming worse over the past 3 months, who will be admitted to inpatient setting for further treatment and evaluation. 1. Right lower extremity soft tissue skin infection. -Etiology unclear. -Left lower extremity CT scan negative for any gas to suggest necrotizing fasciitis. -Left lower extremity MRI negative for any osteomyelitis. -Wound culture positive for polymicrobials. -Continue the patient on carbapenem+Vanco for MRSA coverage. -Being followed by ID and podiatry. 2. Hypertension. -Continue the patient on appropriate antihypertensives. 3. Peripheral vascular disease. -Lower extremity arterial Doppler study showing elevated peak systolic velocity in the left popliteal artery, consistent with 25 to 50% stenosis of the vessel. -Monophasic waveforms in the left posterior tibial artery, indicating of inflow disease due to upstream stenosis. 4. Fluids, electrolytes, and nutrition. - Low-cholesterol diet. 5. DVT prophylaxis. -Left lower extremity SCD. 6. Plan. -Continue antimicrobials as per ID. -Await surgical debridement with biopsy of the lesion on 07/03/2018. The patient was seen in collaboration with Dr. Cooper. Result Diagram: 07/03/18 0548 07/03/18 0548 Results 24hrs Laboratory Tests Test 07/02/18 21:46 07/03/18 05:48 Vancomycin Level Trough 9.5 L White Blood Count 6.3 Red Blood Count 4.17 L Hemoglobin 11.9 L Hematocrit 36.2 L Mean Corpuscular Volume 86.8 Mean Corpuscular Hemoglobin 28.5 L Mean Corpuscular Hemoglobin Concent 32.9 Red Cell Distribution Width 12.5 Platelet Count 299 Mean Platelet Volume 8.9 Immature Granulocytes % 0.600 H Neutrophils % 51.8 Lymphocytes % 27.1 Monocytes % 11.3 H Eosinophils % 7.8 H Basophils % 1.4 Nucleated Red Blood Cells % 0.0 Immature Granulocytes # 0.040 H Neutrophils # 3.3 Lymphocytes # 1.7 Monocytes # 0.7 Eosinophils # 0.5 Basophils # 0.1 Nucleated Red Blood Cells # 0.0 Sodium Level 141 Potassium Level 3.9 Chloride Level 107 Carbon Dioxide Level 29 Anion Gap 5 Blood Urea Nitrogen 10 Creatinine 0.48 Est Glomerular Filtrat Rate mL/min > 60 Glucose Level 112 Calcium Level 9.2 Phosphorus Level 3.5 Magnesium Level 2.0 Exam/Review of Systems Exam Vitals Vital Signs Date Temp Pulse Resp B/P (MAP) Pulse Ox O2 O2 Flow FiO2 Time Delivery Rate 07/03/18 98.6 68 18 124/66 95 02:13 (85) 07/01/18 Room Air 16:44 Intake and Output 07/02/18 07/02/18 07/03/18 1515:00 23:00 07:00 IntakeIntake Total 100 ml 1150 ml 1450 ml BalanceBalance 100 ml 1150 ml 1450 ml Results Results 24hrs Laboratory Tests Test 07/02/18 21:46 07/03/18 05:48 Vancomycin Level Trough 9.5 L White Blood Count 6.3 Red Blood Count 4.17 L Hemoglobin 11.9 L Hematocrit 36.2 L Mean Corpuscular Volume 86.8 Mean Corpuscular Hemoglobin 28.5 L Mean Corpuscular Hemoglobin Concent 32.9 Red Cell Distribution Width 12.5 Platelet Count 299 Mean Platelet Volume 8.9 Immature Granulocytes % 0.600 H Neutrophils % 51.8 Lymphocytes % 27.1 Monocytes % 11.3 H Eosinophils % 7.8 H Basophils % 1.4 Nucleated Red Blood Cells % 0.0 Immature Granulocytes # 0.040 H Neutrophils # 3.3 Lymphocytes # 1.7 Monocytes # 0.7 Eosinophils # 0.5 Basophils # 0.1 Nucleated Red Blood Cells # 0.0 Sodium Level 141 Potassium Level 3.9 Chloride Level 107 Carbon Dioxide Level 29 Anion Gap 5 Blood Urea Nitrogen 10 Creatinine 0.48 Est Glomerular Filtrat Rate mL/min > 60 Glucose Level 112 Calcium Level 9.2 Phosphorus Level 3.5 Magnesium Level 2.0 Medications Medication Current Medications Meropenem/Sodium Chloride 50 ml @ 100 mls/hr Q8 IVPB Last administered on 07/03/18at 05:28; Admin Dose 100 MLS/HR; Start 07/01/18 at 14:00 Vancomycin HCl (Vanco Iv Per Pharmacy) VANCOMYCIN PER PHARMACY PER PROTOCOL XX ; Start 07/01/18 at 13:00 Sodium Chloride 1,000 ml @ 100 mls/hr Q10H IV Last administered on 07/03/18at 01:24; Admin Dose 100 MLS/HR; Start 07/01/18 at 13:00 IV Flush (NS 3 ml) 3 ml PER PROTOCOL IV ; Start 07/01/18 at 13:00 Ondansetron HCl (Zofran Inj) 4 mg Q6H PRN IV NAUSEA/VOMITING; Start 07/01/18 at 13:00 Acetaminophen (Tylenol Tab) 650 mg Q6H PRN PO .PAIN 1-3 OR TEMP; Start 07/01/18 at 13:00 Acetaminophen/ Hydrocodone Bitart ([place] (5/325)) 1 tab Q6H PRN PO .MOD PAIN 4- 6 Last administered on 07/02/18at 21:57; Admin Dose 1 TAB; Start 07/01/18 at 13:00 Morphine Sulfate (morphine) 2 mg Q4H PRN IV .SEVERE PAIN 7-10; Start 07/01/18 at 13:00 Losartan Potassium (Cozaar) 25 mg DAILY PO Last administered on 07/02/18at 08:32; Admin Dose 25 MG; Start 07/01/18 at 13:30 Vancomycin/Sodium Chloride 250 ml @ 125 mls/hr Q12H IVPB Last administered on 07/02/18at 23:09; Admin Dose 125 MLS/HR; Start 07/01/18 at 23:00 Sodium Hypochlorite (Dakins Diluted ()) 1 applic DAILY TP Last administered on 07/02/18at 14:17; Admin Dose 1 APPLIC; Start 07/02/18 at 10:00 RENÉE TOLEDO NP Jul 03, 2018 07:37
[2018-07-03 08:08] VITALS: BP 129/72; PULSE 70; RESP 17
[2018-07-03] MEDS: LOSARTAN 25 MG TAB PO SCH (09:17)
[2018-07-03] MEDS: DAKINS 0.0125%(1/40) 473 ML SOLUTION TP SCH (09:18)
[2018-07-03] MEDS: VANCOMYCIN 750 MG (PMX) 250 ML IVPB SCH (11:22)
[2018-07-03] MEDS: HYDROCODONE/APAP (5/325) TAB PO PRN (13:51)
[2018-07-03 14:00] VITALS: BP 133/63; PULSE 72; RESP 17
--- NOTE | 2018-07-03 14:42 | CONS ---
Assessment/Plan Assessment/Plan Hospital Course (Demo Recall) Patient is status post surgical debridement of her wound this morning she is alert looks comfortable no fevers. Wound culture grew pseudomonas aeruginosa, strep, oxacillin sensitive staph aureus. Antimicrobials: Vancomycin, meropenem Physical examination: Well-nourished well-developed elderly woman who is awake in no distress. Head atraumatic normocephalic sclera nonicteric. Neck is supple. Chest rise symmetrical breath sounds clear. Heart: S1-S2. Abdomen soft bowel sounds present. Extremities with right lower extremity dressing with purulent and bloody drainage Assessment: 1. Right lower extremity cellulitis, chronic wound 2. Peripheral arterial disease Plan: Patient remains stable, will change antibiotics to Cefepime and Levaquin, await for biopsy and pathology report Consultation Date/Type/Reason Admit Date/Time Jul 01, 2018 at 11:42 Initial Consult Date Type of Consult id Date/Time of Note DATE: 07/03/18 TIME: 14:41 Exam/Review of Systems Exam Vitals Vital Signs Date Temp Pulse Resp B/P (MAP) Pulse Ox O2 O2 Flow FiO2 Time Delivery Rate 07/03/18 98.0 70 17 129/72 94 Room Air 08:08 (91) Intake and Output 07/02/18 07/02/18 07/03/18 1414:59 22:59 06:59 IntakeIntake Total 50 ml 1200 ml 1450 ml BalanceBalance 50 ml 1200 ml 1450 ml Results Result Diagram: 07/03/18 0548 07/03/18 0548 Results 24hrs Laboratory Tests Test 07/02/18 21:46 07/03/18 05:45 07/03/18 05:48 Vancomycin Level Trough 9.5 L Vitamin D 1,25-Dihydroxy < 12.8 L White Blood Count 6.3 Red Blood Count 4.17 L Hemoglobin 11.9 L Hematocrit 36.2 L Mean Corpuscular Volume 86.8 Mean Corpuscular Hemoglobin 28.5 L Mean Corpuscular Hemoglobin Concent 32.9 Red Cell Distribution Width 12.5 Platelet Count 299 Mean Platelet Volume 8.9 Immature Granulocytes % 0.600 H Neutrophils % 51.8 Lymphocytes % 27.1 Monocytes % 11.3 H Eosinophils % 7.8 H Basophils % 1.4 Nucleated Red Blood Cells % 0.0 Immature Granulocytes # 0.040 H Neutrophils # 3.3 Lymphocytes # 1.7 Monocytes # 0.7 Eosinophils # 0.5 Basophils # 0.1 Nucleated Red Blood Cells # 0.0 Sodium Level 141 Potassium Level 3.9 Chloride Level 107 Carbon Dioxide Level 29 Anion Gap 5 Blood Urea Nitrogen 10 Creatinine 0.48 Est Glomerular Filtrat Rate mL/min > 60 Glucose Level 112 Calcium Level 9.2 Phosphorus Level 3.5 Magnesium Level 2.0 Medications Medication Current Medications Meropenem/Sodium Chloride 50 ml @ 100 mls/hr Q8 IVPB Last administered on 07/03/18at 13:51; Admin Dose 100 MLS/HR; Start 07/01/18 at 14:00 Vancomycin HCl (Vanco Iv Per Pharmacy) VANCOMYCIN PER PHARMACY PER PROTOCOL XX ; Start 07/01/18 at 13:00 Sodium Chloride 1,000 ml @ 100 mls/hr Q10H IV Last administered on 07/03/18at 0 1:24; Admin Dose 100 MLS/HR; Start 07/01/18 at 13:00 IV Flush (NS 3 ml) 3 ml PER PROTOCOL IV ; Start 07/01/18 at 13:00 Ondansetron HCl (Zofran Inj) 4 mg Q6H PRN IV NAUSEA/VOMITING; Start 07/01/18 at 13:00 Acetaminophen (Tylenol Tab) 650 mg Q6H PRN PO .PAIN 1-3 OR TEMP; Start 07/01/18 at 13:00 Acetaminophen/ Hydrocodone Bitart ([place] (5/325)) 1 tab Q6H PRN PO .MOD PAIN 4- 6 Last administered on 07/03/18at 13:51; Admin Dose 1 TAB; Start 07/01/18 at 13:00 Morphine Sulfate (morphine) 2 mg Q4H PRN IV .SEVERE PAIN 7-10; Start 07/01/18 at 13:00 Losartan Potassium (Cozaar) 25 mg DAILY PO Last administered on 07/03/18at 09:17; Admin Dose 25 MG; Start 07/01/18 at 13:30 Sodium Hypochlorite (Dakins Diluted ()) 1 applic DAILY TP Last administered on 07/03/18at 09:18; Admin Dose 1 APPLIC; Start 07/02/18 at 10:00 Vancomycin HCl 250 ml @ 125 mls/hr Q12H IVPB ; Start 07/03/18 at 23:30 SONALI DE ANDA NP Jul 03, 2018 14:42
--- NOTE | 2018-07-03 16:04 | PREAC ---
Date/Time of Note Date/Time of Note DATE: 07/03/18 TIME: 16:03 Anesthesia Eval and Record Evaluation Time Pre-Procedure Interview DATE: 07/03/18 TIME: 16:03 Age 62 Sex female NPO: 8 hrs Preoperative diagnosis RIGHT LOWER EXTREMITY WOUND Planned procedure WOUND DEBRIDEMENT RIGHT LOWER EXTREMITY Past Medical History Past Medical History: Includes Cardio: HTN Surgery & Anesthesia Issues No known issue Meds Anticoagulation: No Beta Henna within 24 hr: No Reason Beta Henna not given: Pt. not on B-Henna No Active Prescriptions or Reported Meds Current Medications Sodium Chloride 1,000 ml @ 100 mls/hr Q10H IV Last administered on 07/03/18at 15:27; Admin Dose 100 MLS/HR; Start 07/01/18 at 13:00 IV Flush (NS 3 ml) 3 ml PER PROTOCOL IV ; Start 07/01/18 at 13:00 Ondansetron HCl (Zofran Inj) 4 mg Q6H PRN IV NAUSEA/VOMITING; Start 07/01/18 at 13:00 Acetaminophen (Tylenol Tab) 650 mg Q6H PRN PO .PAIN 1-3 OR TEMP; Start 07/01/18 at 13:00 Acetaminophen/ Hydrocodone Bitart ([place] (5/325)) 1 tab Q6H PRN PO .MOD PAIN 4- 6 Last administered on 07/03/18at 13:51; Admin Dose 1 TAB; Start 07/01/18 at 13:00 Morphine Sulfate (morphine) 2 mg Q4H PRN IV .SEVERE PAIN 7-10; Start 07/01/18 at 13:00 Losartan Potassium (Cozaar) 25 mg DAILY PO Last administered on 07/03/18at 09:17; Admin Dose 25 MG; Start 07/01/18 at 13:30 Sodium Hypochlorite (Dakins Diluted (40)) 1 applic DAILY TP Last administered on 07/03/18at 09:18; Admin Dose 1 APPLIC; Start 07/02/18 at 10:00 Cefepime HCl 50 ml @ 100 mls/hr Q12 IVPB ; Start 07/03/18 at 21:00 Levofloxacin (Levaquin) 750 mg DAILY@06 PO ; Start 07/04/18 at 06:00 Meds reviewed: Yes Allergies Coded Allergies: No Known Allergy (Unverified , 07/01/18) Allergies Reviewed: Yes Labs/Studies Labs Reviewed: Reviewed by anesthesiologist Result Diagram: 07/03/18 0548 07/03/18 0548 Laboratory Tests 07/03/18 05:48 test: N/A Pre-procedure Exam Last vitals Vital Signs Date Temp Pulse Resp B/P (MAP) Pulse Ox O2 O2 Flow FiO2 Time Delivery Rate 07/03/18 99.0 72 17 133/63 96 Room Air 14:00 (86) Airway: Adequate mouth opening Mallampati: Mallampati II Teeth: Normal Lung: Normal Heart: Normal ASA Physical Status ASA physical status: 2 Emergency: None Planned Anesthetic General/MAC: ETT Pre-operative Attestations Prior to commencing anesthesia and surgery, the patient was re-evaluated, there was verification of: *The patient's identity *The results of appropriate recent lab work and preoperative vital signs *The above evaluation not changing prior to induction *Anesthetic plan, risk benefits, alternative and complications discussed with patient/family; questions answered; patient/family understands, accepts and wishes to proceed. ABEBA MCGILL Jul 03, 2018 16:04
[2018-07-03 20:32] VITALS: BP 136/59; PULSE 76; RESP 18
[2018-07-03] MEDS: CEFEPIME 1GM/50 ML (PMX) 50 ML IVPB SCH (21:15)
[2018-07-03] MEDS ORDERED: VANCOMYCIN 1 GM 250 ML IVPB SCH (23:30)
[2018-07-04] VITALS (16 sets, daily range): BP systolic 109–142; BP diastolic 67–84; PULSE 56–83; RESP 12–23
[2018-07-04] MEDS: SOD CHLORIDE 0.9% 1,000 ML IV SCH ×2 (01:30→08:56)
[2018-07-04] MEDS: LEVOFLOXACIN 750 MG TABLET PO SCH (05:43)
[2018-07-04] MEDS ORDERED: LIDOCAINE 2% (SDV) 5 ML INJ ONE (07:00)
[2018-07-04] MEDS ORDERED: CEFAZOLIN 1 GM INJ ONE (07:00)
--- NOTE | 2018-07-04 07:48 | HPN ---
Date/Time of Note Date/Time of Note DATE: 07/04/18 TIME: 07:48 Interval H&P Admission Note Pt. seen H&P reviewed: No system changes KELY PATE DPM Jul 04, 2018 07:48
[2018-07-04] MEDS ORDERED: POLYMYXIN/BACITRACIN 1L IRRIG ONE (08:01)
[2018-07-04] MEDS ORDERED: LIDOCAINE 1% (MPF) 30 ML INJ ONE (08:01)
[2018-07-04] MEDS ORDERED: BUPIVACAINE 0.5% (SDV) 30 ML INJ ONE (08:01)
[2018-07-04] MEDS ORDERED: PROPOFOL 20 ML ONE (08:04)
[2018-07-04] MEDS ORDERED: LIDOCAINE 1% (MPF) 30 ML INJ INJ ONE (08:05)
[2018-07-04] MEDS ORDERED: BUPIVACAINE 0.5% (MPF) 30 ML INJ INJ ONE (08:05)
[2018-07-04] MEDS ORDERED: MIDAZOLAM 1 MG/ML 2 ML INJ ONE (08:05)
[2018-07-04] MEDS ORDERED: FENTAnyl 50 MCG/ML VIAL ONE (08:23)
--- NOTE | 2018-07-04 08:47 | OPR ---
Date/Time of Note Date/Time of Note DATE: 07/04/18 TIME: 08:47 Operative Report Preoperative Diagnosis Chronic Right lower extremity ulceration mixed etiology RLE cellulitis Venous insufficiency Edema PAD Postoperative Diagnosis Chronic Right lower extremity ulceration mixed etiology RLE cellulitis Venous insufficiency Edema PAD Operation/Procedure Performed right lower extremity excisional debridement biopsy of right lower extremity ulcer Application of wound VAC Surgeon see signature line Production Cook none Anesthesia Type: MAC Estimated Blood Loss: 10 - 50 ml's Transfusion none Specimen right leg wound biopsy Grafts/Implants none Complications none Indications 62 y/o F with chronic ulceration to right leg for the past 3 months. Patient believes wound began as a spider bite and worsened over time. Patient had failed conservative treatments and is amenable to surgical intervention. Due to the nature of the wound biopsy will also be taken for further studies. All of the patient's questions and concerns were addressed no promises or guarantees were given. Procedure Description Patient was brought into the OR and placed on the OR table in the supine position. The right lower extremity was scrubbed, prepped, and draped in the usual aseptic fashion. A formal time out was conducted Attention was directed to the ulceration of the Right lateral leg ulcer mid diaphyseal region measuring 12 x 8 x 0.4cm with fibrotic and granular wound base. There is significant slough noted to the ulcer site. There is surrounding erythema, no proximal streaking. At this time no purulence is appreciated within the wound bed, no active drainage. No probing to bone Excisional debridement of skin/subQ/fascia was performed using a versajet water scalpel and curette. Fibrotic tissue and non-viable tissue was removed from the wound bed. 96cm2 of area was debrided. Copious antibiotic infused saline irrigation was utilized at the wound site. Post lavage wound cultures were obtained, and soft tissue wound biopsy was sent for pathology studies. Local anesthesia was injected to block the surgical site. The right leg ulcer was prepared to use a wound VAC application which was set to 125mmHg low continuous therapy with black foam. A successful seal was obtained and dry sterile compression dressings were applied to the right lower extremity. Patient was transferred to the PACU with vital signs stable and neurovascular status intact. KELY PATE DPM Jul 04, 2018 08:47
--- NOTE | 2018-07-04 08:47 | SIPON ---
Date/Time of Note Date/Time of Note DATE: 07/04/18 TIME: 08:47 Operative Report Preoperative Diagnosis Chronic Right lower extremity ulceration mixed etiology RLE cellulitis Venous insufficiency Edema PAD Postoperative Diagnosis Chronic Right lower extremity ulceration mixed etiology RLE cellulitis Venous insufficiency Edema PAD Operation/Procedure Performed right lower extremity excisional debridement biopsy of right lower extremity ulcer Application of wound VAC Surgeon see signature line membership assistant none Anesthesia: MAC Estimated blood loss: 10 - 50 ml's Transfusion Required none Specimen right leg wound biopsy Grafts/Implants none Complications none KELY PATE DPCatherine Jul 04, 2018 08:47
[2018-07-04] MEDS: HYDROmorphONE 1 MG/5 ML IV SYRINGE IV PRN ×5 (08:54→09:18)
[2018-07-04] MEDS ORDERED: DIPHENHYDRAMINE 50 MG INJ IV PRN (09:00)
[2018-07-04] MEDS ORDERED: MEPERIDINE 25 MG INJ IV PRN (09:00)
[2018-07-04] MEDS ORDERED: ALBUTEROL 0.083% (NEB) 2.5 MG/3 ML AMP HHN PRN (09:00)
[2018-07-04] MEDS ORDERED: FENTAnyl 50 MCG/ML VIAL IV PRN ×2 (09:00)
[2018-07-04] MEDS: DAKINS 0.0125%(1/40) 473 ML SOLUTION TP SCH (09:00)
[2018-07-04] MEDS ORDERED: METOCLOPRAMIDE 10 MG INJ IV PRN (09:00)
[2018-07-04] MEDS ORDERED: ONDANSETRON 4 MG INJ IV PRN (09:00)
[2018-07-04] MEDS: LOSARTAN 25 MG TAB PO SCH (09:54)
[2018-07-04] MEDS: CEFEPIME 1GM/50 ML (PMX) 50 ML IVPB SCH ×2 (09:54→20:21)
--- NOTE | 2018-07-04 10:17 | PAC ---
Date/Time of Note Date/Time of Note DATE: 07/04/18 TIME: 10:17 Post-Anesthesia Notes Post-Anesthesia Note Last documented vital signs Vital Signs Date Temp Pulse Resp B/P (MAP) Pulse Ox O2 O2 Flow FiO2 Time Delivery Rate 07/04/18 56 14 112/68 95 Room Air 09:41 (83) 07/04/18 98.0 09:12 Activity: WNL Respiratory function: WNL Cardiovascular function: WNL Mental status: Baseline Pain reasonably controlled: Yes Hydration appropriate: Yes Nausea/Vomiting absent: Yes ADELSO WASHBURN Jul 04, 2018 10:17
[2018-07-04] MEDS: HYDROCODONE/APAP (5/325) TAB PO PRN ×2 (11:07→17:19)
--- NOTE | 2018-07-04 11:39 | PN ---
Date/Time of Note Date/Time of Note DATE: 07/04/18 TIME: 11:35 Assessment/Plan VTE Prophylaxis Risk score (from Nsg)>0 risk: 4 SCD applied (from Nsg): Yes Pharmacological prophylaxis: heparin Lines/Catheters IV Catheter Type (from Nrsg): Peripheral IV Urinary Cath still in place: No Assessment/Plan Hospital Course 62 yo female wtih large lower leg ulceration of unclear etiology Ulceration: - s/p operative management by Dr Grullon - Wound vac per surgery - Abx per ID, not clear to me if there is a bacterial infection requiring antibiotics. Certainly the patient does not show systemic signs of infection Hypertension: - Losartan Dc planning Result Diagram: 07/04/1843707/04/18437 Results 24hrs Laboratory Tests Test 07/04/18 04:38 White Blood Count 6.7 Red Blood Count 4.61 Hemoglobin 13.0 Hematocrit 40.2 Mean Corpuscular Volume 87.2 Mean Corpuscular Hemoglobin 28.2 L Mean Corpuscular Hemoglobin Concent 32.3 Red Cell Distribution Width 12.2 Platelet Count 367 # Mean Platelet Volume 8.9 Immature Granulocytes % 0.600 H Neutrophils % 58.1 Lymphocytes % 24.5 Monocytes % 9.2 Eosinophils % 6.5 Basophils % 1.1 Nucleated Red Blood Cells % 0.0 Immature Granulocytes # 0.040 H Neutrophils # 3.9 Lymphocytes # 1.6 Monocytes # 0.6 Eosinophils # 0.4 Basophils # 0.1 Nucleated Red Blood Cells # 0.0 Sodium Level 142 Potassium Level 3.8 Chloride Level 106 Carbon Dioxide Level 29 Anion Gap 7 Blood Urea Nitrogen 11 Creatinine 0.51 Est Glomerular Filtrat Rate mL/min > 60 Glucose Level 114 Calcium Level 9.5 Phosphorus Level 3.4 Magnesium Level 2.0 Subjective 24 Hr Interval Summary Free Text/Dictation Patient went to OR today for debridement and wound vac placed. No purulence noted Seen after in room, doing well, no compalints Exam/Review of Systems Exam Vitals Vital Signs Date Temp Pulse Resp B/P (MAP) Pulse Ox O2 O2 Flow FiO2 Time Delivery Rate 07/04/18 56 14 112/68 95 Room Air 09:41 (83) 07/04/18 98.0 09:12 Intake and Output 07/03/18 07/03/18 07/04/18 1515:00 23:00 07:00 IntakeIntake Total 800 ml 1600 ml 450 ml BalanceBalance 800 ml 1600 ml 450 ml Constitutional: alert, oriented, well developed Psych: no complaints, nl mood/affect Head: normocephalic, atraumatic Eyes: nl conjunctiva, EOMI, nl lids, nl sclera, PERRL ENMT: nl external ears & nose, nl lips & teeth, nl nasal mucosa & septum Neck: supple, non-tender Respiratory: clear to auscultation, normal air movement Cardiovascular: regular rate and rhythm, nl pulses Gastrointestinal: soft, nl liver, spleen, non-tender Musculoskeletal: nl extremities to inspection, nl gait and stance Extremities: normal pulses Neurological: RADAR TECHNICIAN II-XII intact, nl mental status, nl speech, nl strength Skin: nl turgor; No rash or lesions Lymph: nl lymph nodes Results Results 24hrs Laboratory Tests Test 07/04/18 04:38 White Blood Count 6.7 Red Blood Count 4.61 Hemoglobin 13.0 Hematocrit 40.2 Mean Corpuscular Volume 87.2 Mean Corpuscular Hemoglobin 28.2 L Mean Corpuscular Hemoglobin Concent 32.3 Red Cell Distribution Width 12.2 Platelet Count 367 # Mean Platelet Volume 8.9 Immature Granulocytes % 0.600 H Neutrophils % 58.1 Lymphocytes % 24.5 Monocytes % 9.2 Eosinophils % 6.5 Basophils % 1.1 Nucleated Red Blood Cells % 0.0 Immature Granulocytes # 0.040 H Neutrophils # 3.9 Lymphocytes # 1.6 Monocytes # 0.6 Eosinophils # 0.4 Basophils # 0.1 Nucleated Red Blood Cells # 0.0 Sodium Level 142 Potassium Level 3.8 Chloride Level 106 Carbon Dioxide Level 29 Anion Gap 7 Blood Urea Nitrogen 11 Creatinine 0.51 Est Glomerular Filtrat Rate mL/min > 60 Glucose Level 114 Calcium Level 9.5 Phosphorus Level 3.4 Magnesium Level 2.0 Medications Medication Current Medications Sodium Chloride 1,000 ml @ 100 mls/hr Q10H IV Last administered on 07/04/18at 08:56; Admin Dose 100 MLS/HR; Start 07/01/18 at 13:00 IV Flush (NS 3 ml) 3 ml PER PROTOCOL IV ; Start 07/01/18 at 13:00 Ondansetron HCl (Zofran Inj) 4 mg Q6H PRN IV NAUSEA/VOMITING; Start 07/01/18 at 13:00 Acetaminophen (Tylenol Tab) 650 mg Q6H PRN PO .PAIN 1-3 OR TEMP; Start 07/01/18 at 13:00 Acetaminophen/ Hydrocodone Bitart ([place] (5/325)) 1 tab Q6H PRN PO .MOD PAIN 4- 6 Last administered on 07/04/18 11:07; Admin Dose 1 TAB; Start 07/01/18 at 13:00 Morphine Sulfate (morphine) 2 mg Q4H PRN IV .SEVERE PAIN 7-10; Start 07/01/18 at 13:00 Losartan Potassium (Cozaar) 25 mg DAILY PO Last administered on 07/04/18 09:54; Admin Dose 25 MG; Start 07/01/18 at 13:30 Sodium Hypochlorite (Dakins Diluted ()) 1 applic DAILY TP Last administered on 07/03/18 09:18; Admin Dose 1 APPLIC; Start 07/02/18 at 10:00 Cefepime HCl 50 ml @ 100 mls/hr Q12 IVPB Last administered on 07/04/18 09:54; Admin Dose 100 MLS/HR; Start 07/03/18 at 21:00 Levofloxacin (Levaquin) 750 mg DAILY@06 PO Last administered on 07/04/18 05:43; Admin Dose 750 MG; Start 07/04/18 at 06:00 Hydromorphone HCl (Dilaudid) 0.2 mg PACU PRN IV MILD PAIN 1-3 Last administered on 07/04/18 09:18; Admin Dose 0.2 MG; Start 07/04/18 at 09:00; Stop 07/04/18 at 15:00 Fentanyl (Sublimaze) 25 mcg PACU ORDER PRN IV MILD PAIN 1-3; Start 07/04/18 at 09:00; Stop 07/04/18 at 15:00 Fentanyl (Sublimaze) 50 mcg PACU ORDER PRN IV MOD PAIN 4-6; Start 07/04/18 at 09:00; Stop 07/04/18 at 15:00 Ondansetron HCl (Zofran Inj) 4 mg PACU ORDER PRN IV NAUSEA/VOMITING; Start 07/04/18 at 09:00; Stop 07/04/18 at 15:00 Metoclopramide HCl (Reglan) 10 mg PACU ORDER PRN IV NAUSEA/VOMITING; Start 07/04/18 at 09:00; Stop 07/04/18 at 15:00 Albuterol (Proventil 0.083% (Neb)) 2.5 mg PACU ORDER PRN HHN .WHEEZING; Start 07/04/18 at 09:00; Stop 07/04/18 at 15:00 Meperidine HCl (Demerol) 25 mg PACU ORDER PRN IV .RIGORS Last administered on 07/04/18at 09:19; Admin Dose 25 MG; Start 07/04/18 at 09:00; Stop 07/04/18 at 15:00 Diphenhydramine HCl (Benadryl) 25 mg PACU ORDER PRN IV .PRURITUS; Start 07/04/18 at 09:00; Stop 07/04/18 at 15:00 LOIDA DAVIS MD Jul 04, 2018 11:39
--- NOTE | 2018-07-04 12:40 | CONS ---
Assessment/Plan Assessment/Plan Hospital Course (Demo Recall) No acute changes, all noted, no fevers Antimicrobials: Cefepime, Levaquin Physical examination: Well-nourished well-developed elderly woman who is awake in no distress. Head atraumatic normocephalic sclera nonicteric. Neck is supple. Chest rise symmetrical breath sounds clear. Heart: S1-S2. Abdomen soft bowel sounds present. Extremities with right lower extremity dressing with purulent and bloody drainage Assessment: 1. Right lower extremity cellulitis, chronic wound 2. Peripheral arterial disease Plan: Patient remains stable, continue abx, await for biopsy and pathology report, wound vac and wound care per podiatry Consultation Date/Type/Reason Admit Date/Time Jul 01, 2018 at 11:42 Initial Consult Date Type of Consult id Date/Time of Note DATE: 07/04/18 TIME: 12:39 Exam/Review of Systems Exam Vitals Vital Signs Date Temp Pulse Resp B/P (MAP) Pulse Ox O2 O2 Flow FiO2 Time Delivery Rate 07/04/18 56 14 112/68 95 Room Air 09:41 (83) 07/04/18 98.0 09:12 Intake and Output 07/03/18 07/03/18 07/04/18 1515:00 23:00 07:00 IntakeIntake Total 800 ml 1600 ml 450 ml BalanceBalance 800 ml 1600 ml 450 ml Results Result Diagram: 07/04/18 0438 07/04/18 0438 Results 24hrs Laboratory Tests Test 07/04/18 04:38 White Blood Count 6.7 Red Blood Count 4.61 Hemoglobin 13.0 Hematocrit 40.2 Mean Corpuscular Volume 87.2 Mean Corpuscular Hemoglobin 28.2 L Mean Corpuscular Hemoglobin Concent 32.3 Red Cell Distribution Width 12.2 Platelet Count 367 # Mean Platelet Volume 8.9 Immature Granulocytes % 0.600 H Neutrophils % 58.1 Lymphocytes % 24.5 Monocytes % 9.2 Eosinophils % 6.5 Basophils % 1.1 Nucleated Red Blood Cells % 0.0 Immature Granulocytes # 0.040 H Neutrophils # 3.9 Lymphocytes # 1.6 Monocytes # 0.6 Eosinophils # 0.4 Basophils # 0.1 Nucleated Red Blood Cells # 0.0 Sodium Level 142 Potassium Level 3.8 Chloride Level 106 Carbon Dioxide Level 29 Anion Gap 7 Blood Urea Nitrogen 11 Creatinine 0.51 Est Glomerular Filtrat Rate mL/min > 60 Glucose Level 114 Calcium Level 9.5 Phosphorus Level 3.4 Magnesium Level 2.0 Medications Medication Current Medications IV Flush (NS 3 ml) 3 ml PER PROTOCOL IV ; Start 07/01/18 at 13:00 Ondansetron HCl (Zofran Inj) 4 mg Q6H PRN IV NAUSEA/VOMITING; Start 07/01/18 at 13:00 Acetaminophen (Tylenol Tab) 650 mg Q6H PRN PO .PAIN 1-3 OR TEMP; Start 07/01/18 at 13:00 Acetaminophen/ Hydrocodone Bitart ([place] (5/325)) 1 tab Q6H PRN PO .MOD PAIN 4- 6 Last administered on 07/04/18at 11:07; Admin Dose 1 TAB; Start 07/01/18 at 13:00 Morphine Sulfate (morphine) 2 mg Q4H PRN IV .SEVERE PAIN 7-10; Start 07/01/18 at 13:00 Losartan Potassium (Cozaar) 25 mg DAILY PO Last administered on 07/04/18 09:54; Admin Dose 25 MG; Start 07/01/18 at 13:30 Sodium Hypochlorite (Dakins Diluted (1/40)) 1 applic DAILY TP Last administered on 07/03/18 09:18; Admin Dose 1 APPLIC; Start 07/02/18 at 10:00 Cefepime HCl 50 ml @ 100 mls/hr Q12 IVPB Last administered on 07/04/18 09:54; Admin Dose 100 MLS/HR; Start 07/03/18 at 21:00 Levofloxacin (Levaquin) 750 mg DAILY@06 PO Last administered on 07/04/18 05:43; Admin Dose 750 MG; Start 07/04/18 at 06:00 Hydromorphone HCl (Dilaudid) 0.2 mg PACU PRN IV MILD PAIN 1-3 Last administered on 07/04/18 09:18; Admin Dose 0.2 MG; Start 07/04/18 at 09:00; Stop 07/04/18 at 15:00 Fentanyl (Sublimaze) 25 mcg PACU ORDER PRN IV MILD PAIN 1-3; Start 07/04/18 at 09:00; Stop 07/04/18 at 15:00 Fentanyl (Sublimaze) 50 mcg PACU ORDER PRN IV MOD PAIN 4-6; Start 07/04/18 at 09:00; Stop 07/04/18 at 15:00 Ondansetron HCl (Zofran Inj) 4 mg PACU ORDER PRN IV NAUSEA/VOMITING; Start 07/04/18 at 09:00; Stop 07/04/18 at 15:00 Metoclopramide HCl (Reglan) 10 mg PACU ORDER PRN IV NAUSEA/VOMITING; Start 07/04/18 at 09:00; Stop 07/04/18 at 15:00 Albuterol (Proventil 0.083% (Neb)) 2.5 mg PACU ORDER PRN HHN .WHEEZING; Start 07/04/18 at 09:00; Stop 07/04/18 at 15:00 Meperidine HCl (Demerol) 25 mg PACU ORDER PRN IV .RIGORS Last administered on 07/04/18at 09:19; Admin Dose 25 MG; Start 07/04/18 at 09:00; Stop 07/04/18 at 15:00 Diphenhydramine HCl (Benadryl) 25 mg PACU ORDER PRN IV .PRURITUS; Start 07/04/18 at 09:00; Stop 07/04/18 at 15:00 SONALI DE ANDA NP Jul 04, 2018 12:40
--- NOTE | 2018-07-04 16:48 | RADRPT ---
Vent Rate: 81 bpm RR Interval: 0 msec [place] Interval: 160 msec QRS Duration: 82 msec QT Interval: 392 msec QTC Interval: 455 msec P-R-T [place]: 54 - -1 - 25 degrees Normal sinus rhythm Possible Left atrial enlargement Left ventricular hypertrophy Abnormal ECG Electronically Signed By: Salvador Freire
[2018-07-05] MEDS: morphine 2 MG INJ IV PRN ×3 (01:44→22:16)
[2018-07-05 02:49] VITALS: BP 140/73; PULSE 65; RESP 16
[2018-07-05] MEDS: LEVOFLOXACIN 750 MG TABLET PO SCH (05:51)
[2018-07-05 08:00] VITALS: BP 162/82; PULSE 76; RESP 18
[2018-07-05] MEDS: DAKINS 0.0125%(1/40) 473 ML SOLUTION TP SCH (08:23)
[2018-07-05] MEDS: CEFEPIME 1GM/50 ML (PMX) 50 ML IVPB SCH ×2 (08:28→22:15)
[2018-07-05] MEDS: LOSARTAN 25 MG TAB PO SCH (08:29)
--- NOTE | 2018-07-05 10:21 | CONS ---
Assessment/Plan Assessment/Plan Assessment/Plan (Daily) Chronic Right lower extremity ulceration mixed etiology RLE cellulitis Venous insufficiency Edema Leukocytosis - resolved Plan Continue with wound VAC dressing changes with wound care nurse. Recommend home VAC use. Intra-op Cx showing staph aureus, pseudomonas, and strep group B. Intra-op pathology pending. Appreciate anbx recommendations per ID. Recommend to elevate and offload right lower extremity with pillows. Consultation Date/Type/Reason Admit Date/Time Jul 01, 2018 at 11:42 Initial Consult Date Date/Time of Note DATE: 07/05/18 TIME: 10:20 24 HR Interval Summary Free Text/Dictation No acute events overnight. Exam/Review of Systems Exam Vitals Vital Signs Date Temp Pulse Resp B/P (MAP) Pulse Ox O2 O2 Flow FiO2 Time Delivery Rate 07/05/18 98.8 76 18 162/82 96 08:00 (108) 07/04/18 Room Air 09:41 Intake and Output 07/04/18 07/04/18 07/05/18 1515:00 23:00 07:00 IntakeIntake Total 1370 ml 550 ml OutputOutput Total 5 ml 20 ml BalanceBalance 1365 ml 530 ml Exam wound VAC operational with serosanguinous output noted to canister Dressings clean dry and intact, no strikethrough no proximal streaking or foul odor. Results Result Diagram: 07/05/18 0528 07/05/18 0528 Results 24hrs Laboratory Tests Test 07/05/18 05:28 White Blood Count 7.5 Red Blood Count 4.22 Hemoglobin 11.9 L Hematocrit 36.7 L Mean Corpuscular Volume 87.0 Mean Corpuscular Hemoglobin 28.2 L Mean Corpuscular Hemoglobin Concent 32.4 Red Cell Distribution Width 12.1 Platelet Count 352 Mean Platelet Volume 8.8 Immature Granulocytes % 0.500 H Neutrophils % 53.0 Lymphocytes % 31.1 Monocytes % 8.2 Eosinophils % 6.4 Basophils % 0.8 Nucleated Red Blood Cells % 0.0 Immature Granulocytes # 0.040 H Neutrophils # 4.0 Lymphocytes # 2.3 Monocytes # 0.6 Eosinophils # 0.5 Basophils # 0.1 Nucleated Red Blood Cells # 0.0 Sodium Level 141 Potassium Level 3.7 Chloride Level 107 Carbon Dioxide Level 28 Anion Gap 6 Blood Urea Nitrogen 10 Creatinine 0.50 Est Glomerular Filtrat Rate mL/min > 60 Glucose Level 106 Calcium Level 9.1 Phosphorus Level 3.7 Magnesium Level 2.0 Medications Medication Current Medications IV Flush (NS 3 ml) 3 ml PER PROTOCOL IV ; Start 07/01/18 at 13:00 Ondansetron HCl (Zofran Inj) 4 mg Q6H PRN IV NAUSEA/VOMITING; Start 07/01/18 at 13:00 Acetaminophen (Tylenol Tab) 650 mg Q6H PRN PO .PAIN 1-3 OR TEMP; Start 07/01/18 at 13:00 Acetaminophen/ Hydrocodone Bitart ([place] (5/325)) 1 tab Q6H PRN PO .MOD PAIN 4- 6 Last administered on 07/04/18 17:19; Admin Dose 1 TAB; Start 07/01/18 at 13:00 Morphine Sulfate (morphine) 2 mg Q4H PRN IV .SEVERE PAIN 7-10 Last administered on 07/05/18 05:53; Admin Dose 2 MG; Start 07/01/18 at 13:00 Losartan Potassium (Cozaar) 25 mg DAILY PO Last administered on 07/05/18 08:29; Admin Dose 25 MG; Start 07/01/18 at 13:30 Sodium Hypochlorite (Dakins Diluted ()) 1 applic DAILY TP Last administered on 07/03/18 09:18; Admin Dose 1 APPLIC; Start 07/02/18 at 10:00 Cefepime HCl 50 ml @ 100 mls/hr Q12 IVPB Last administered on 07/05/18 08:28; Admin Dose 100 MLS/HR; Start 07/03/18 at 21:00 Levofloxacin (Levaquin) 750 mg DAILY@06 PO Last administered on 07/05/18 05:51; Admin Dose 750 MG; Start 07/04/18 at 06:00 KELY PATE DPM Jul 05, 2018 10:21
--- NOTE | 2018-07-05 12:08 | PN ---
Date/Time of Note Date/Time of Note DATE: 07/05/18 TIME: 12:08 Assessment/Plan VTE Prophylaxis Risk score (from Ns)>0 risk: 3 SCD applied (from [facility] [place]): Yes Pharmacological prophylaxis: NA/contraindicated Pharm contraindication: other Lines/Catheters IV [facility]atheter Type (from [facility]): Peripheral IV Urinary Cath still in place: No Assessment/Plan Hospital Course SUBJECTIVE: No acute overnight episodes. OBJECTIVE: Vital signs-see below PHYSICAL EXAM: Constitutional: Well-developed, well-nourished not in acute distress. HEENT: Head atraumatic and normocephalic. Eyes: Extraocular muscles intact. Anicteric sclerae. Pupils equal bilaterally, reactive to light. NECK: Supple without lymph node. CHEST: Clear and good breath sounds equally. No wheezing. No rhonchi. HEART: S1, S2. Regular rate and rhythm. ABDOMEN: Soft with no rebound tenderness. Bowel sounds were present. EXTREMITIES: RLE covered with LUCRETIA wrap/dressing c/d/i. Full range of motion in all the extremities. No cyanosis, clubbing or edema. NEUROLOGIC: Alert and oriented x3. No focal deficit. No sensory deficit. PSYCHOSOCIAL: In a good mood. No signs of depression. INTEGUMENTARY:moist mucous membranes. Good skin turgor, intact. ASSESSMENT AND PLAN:62 yo female w/ large right lower leg ulceration of unclear etiology RLE Ulceration/Cellulitis: - s/p operative management by Dr Grullon - Wound vac per surgery - Abx per ID Hypertension: - Losartan DVT prophylaxis. -Left lower extremity SCD. Dc planning: Patient and family refused SNF. Plan is home with home health for wound VAC/HH services. CM working on it. Case discussed with Result Diagram: 07/05/1828 07/05/1828 Results 24hrs Laboratory Tests Test 07/05/18 05:28 White Blood Count 7.5 Red Blood Count 4.22 Hemoglobin 11.9 L Hematocrit 36.7 L Mean Corpuscular Volume 87.0 Mean Corpuscular Hemoglobin 28.2 L Mean Corpuscular Hemoglobin Concent 32.4 Red Cell Distribution Width 12.1 Platelet Count 352 Mean Platelet Volume 8.8 Immature Granulocytes % 0.500 H Neutrophils % 53.0 Lymphocytes % 31.1 Monocytes % 8.2 Eosinophils % 6.4 Basophils % 0.8 Nucleated Red Blood Cells % 0.0 Immature Granulocytes # 0.040 H Neutrophils # 4.0 Lymphocytes # 2.3 Monocytes # 0.6 Eosinophils # 0.5 Basophils # 0.1 Nucleated Red Blood Cells # 0.0 Sodium Level 141 Potassium Level 3.7 Chloride Level 107 Carbon Dioxide Level 28 Anion Gap 6 Blood Urea Nitrogen 10 Creatinine 0.50 Est Glomerular Filtrat Rate mL/min > 60 Glucose Level 106 Calcium Level 9.1 Phosphorus Level 3.7 Magnesium Level 2.0 Exam/Review of Systems Exam Vitals Vital Signs Date Temp Pulse Resp B/P (MAP) Pulse Ox O2 O2 Flow FiO2 Time Delivery Rate 07/05/18 98.8 76 18 162/82 96 08:00 (108) 07/04/18 Room Air 09:41 Intake and Output 07/04/18 07/04/18 07/05/18 1515:00 23:00 07:00 IntakeIntake Total 1370 ml 550 ml OutputOutput Total 5 ml 20 ml BalanceBalance 1365 ml 530 ml Results Results 24hrs Laboratory Tests Test 07/05/18 05:28 White Blood Count 7.5 Red Blood Count 4.22 Hemoglobin 11.9 L Hematocrit 36.7 L Mean Corpuscular Volume 87.0 Mean Corpuscular Hemoglobin 28.2 L Mean Corpuscular Hemoglobin Concent 32.4 Red Cell Distribution Width 12.1 Platelet Count 352 Mean Platelet Volume 8.8 Immature Granulocytes % 0.500 H Neutrophils % 53.0 Lymphocytes % 31.1 Monocytes % 8.2 Eosinophils % 6.4 Basophils % 0.8 Nucleated Red Blood Cells % 0.0 Immature Granulocytes # 0.040 H Neutrophils # 4.0 Lymphocytes # 2.3 Monocytes # 0.6 Eosinophils # 0.5 Basophils # 0.1 Nucleated Red Blood Cells # 0.0 Sodium Level 141 Potassium Level 3.7 Chloride Level 107 Carbon Dioxide Level 28 Anion Gap 6 Blood Urea Nitrogen 10 Creatinine 0.50 Est Glomerular Filtrat Rate mL/min > 60 Glucose Level 106 Calcium Level 9.1 Phosphorus Level 3.7 Magnesium Level 2.0 Medications Medication Current Medications IV Flush (NS 3 ml) 3 ml PER PROTOCOL IV ; Start 07/01/18 at 13:00 Ondansetron HCl (Zofran Inj) 4 mg Q6H PRN IV NAUSEA/VOMITING; Start 07/01/18 at 13:00 Acetaminophen (Tylenol Tab) 650 mg Q6H PRN PO .PAIN 1-3 OR TEMP; Start 07/01/18 at 13:00 Acetaminophen/ Hydrocodone Bitart ([place] (5/325)) 1 tab Q6H PRN PO .MOD PAIN 4- 6 Last administered on 07/04/18 17:19; Admin Dose 1 TAB; Start 07/01/18 at 13:00 Morphine Sulfate (morphine) 2 mg Q4H PRN IV .SEVERE PAIN 7-10 Last administered on 07/05/18 05:53; Admin Dose 2 MG; Start 07/01/18 at 13:00 Losartan Potassium (Cozaar) 25 mg DAILY PO Last administered on 07/05/18 08:29; Admin Dose 25 MG; Start 07/01/18 at 13:30 Sodium Hypochlorite (Dakins Diluted ()) 1 applic DAILY TP Last administered on 07/03/18 09:18; Admin Dose 1 APPLIC; Start 07/02/18 at 10:00 Cefepime HCl 50 ml @ 100 mls/hr Q12 IVPB Last administered on 07/05/18 08:28; Admin Dose 100 MLS/HR; Start 07/03/18 at 21:00 Levofloxacin (Levaquin) 750 mg DAILY@06 PO Last administered on 07/05/18 05 :51; Admin Dose 750 MG; Start 07/04/18 at 06:00 JANELLE DODD NP Jul 05, 2018 12:08
[2018-07-05 14:00] VITALS: BP 105/67; PULSE 80; RESP 18
--- NOTE | 2018-07-05 15:01 | PN ---
Date/Time of Note Date/Time of Note DATE: 07/05/18 TIME: 15:00 Assessment/Plan VTE Prophylaxis Risk score (from Ns)>0 risk: 3 SCD applied (from Ns): Yes Pharmacological prophylaxis: NA/contraindicated Pharm contraindication: other Lines/Catheters IV [facility] Type (from [facility]): Peripheral IV Urinary Cath still in place: No Assessment/Plan Hospital Course SUBJECTIVE: No acute overnight episodes. OBJECTIVE: Vital signs-see below PHYSICAL EXAM: Constitutional: Well-developed, well-nourished not in acute distress. HEENT: Head atraumatic and normocephalic. Eyes: Extraocular muscles intact. Anicteric sclerae. Pupils equal bilaterally, reactive to light. NECK: Supple without lymph node. CHEST: Clear and good breath sounds equally. No wheezing. No rhonchi. HEART: S1, S2. Regular rate and rhythm. ABDOMEN: Soft with no rebound tenderness. Bowel sounds were present. EXTREMITIES: RLE covered with LUCRETIA wrap/dressing c/d/i. Full range of motion in all the extremities. No cyanosis, clubbing or edema. NEUROLOGIC: Alert and oriented x3. No focal deficit. No sensory deficit. PSYCHOSOCIAL: In a good mood. No signs of depression. INTEGUMENTARY:moist mucous membranes. Good skin turgor, intact. ASSESSMENT AND PLAN:62 yo female w/ large right lower leg ulceration of unclear etiology RLE Ulceration/Cellulitis: - s/p operative management by Dr Grullon - Wound vac per surgery - Abx per ID Hypertension: - Losartan DVT prophylaxis. -Left lower extremity SCD. Dc planning: Patient and family refused SNF. Plan is home with home health for wound VAC/HH services. CM working on it. Case discussed with Result Diagram: 07/05/1828 07/05/18527 Results 24hrs Laboratory Tests Test 07/05/18 05:28 White Blood Count 7.5 Red Blood Count 4.22 Hemoglobin 11.9 L Hematocrit 36.7 L Mean Corpuscular Volume 87.0 Mean Corpuscular Hemoglobin 28.2 L Mean Corpuscular Hemoglobin Concent 32.4 Red Cell Distribution Width 12.1 Platelet Count 352 Mean Platelet Volume 8.8 Immature Granulocytes % 0.500 H Neutrophils % 53.0 Lymphocytes % 31.1 Monocytes % 8.2 Eosinophils % 6.4 Basophils % 0.8 Nucleated Red Blood Cells % 0.0 Immature Granulocytes # 0.040 H Neutrophils # 4.0 Lymphocytes # 2.3 Monocytes # 0.6 Eosinophils # 0.5 Basophils # 0.1 Nucleated Red Blood Cells # 0.0 Sodium Level 141 Potassium Level 3.7 Chloride Level 107 Carbon Dioxide Level 28 Anion Gap 6 Blood Urea Nitrogen 10 Creatinine 0.50 Est Glomerular Filtrat Rate mL/min > 60 Glucose Level 106 Calcium Level 9.1 Phosphorus Level 3.7 Magnesium Level 2.0 Exam/Review of Systems Exam Vitals Vital Signs Date Temp Pulse Resp B/P (MAP) Pulse Ox O2 O2 Flow FiO2 Time Delivery Rate 07/05/18 98.8 76 18 162/82 96 08:00 (108) 07/04/18 Room Air 09:41 Intake and Output 07/04/18 07/04/18 07/05/18 1515:00 23:00 07:00 IntakeIntake Total 1370 ml 550 ml OutputOutput Total 5 ml 20 ml BalanceBalance 1365 ml 530 ml Results Results 24hrs Laboratory Tests Test 07/05/18 05:28 White Blood Count 7.5 Red Blood Count 4.22 Hemoglobin 11.9 L Hematocrit 36.7 L Mean Corpuscular Volume 87.0 Mean Corpuscular Hemoglobin 28.2 L Mean Corpuscular Hemoglobin Concent 32.4 Red Cell Distribution Width 12.1 Platelet Count 352 Mean Platelet Volume 8.8 Immature Granulocytes % 0.500 H Neutrophils % 53.0 Lymphocytes % 31.1 Monocytes % 8.2 Eosinophils % 6.4 Basophils % 0.8 Nucleated Red Blood Cells % 0.0 Immature Granulocytes # 0.040 H Neutrophils # 4.0 Lymphocytes # 2.3 Monocytes # 0.6 Eosinophils # 0.5 Basophils # 0.1 Nucleated Red Blood Cells # 0.0 Sodium Level 141 Potassium Level 3.7 Chloride Level 107 Carbon Dioxide Level 28 Anion Gap 6 Blood Urea Nitrogen 10 Creatinine 0.50 Est Glomerular Filtrat Rate mL/min > 60 Glucose Level 106 Calcium Level 9.1 Phosphorus Level 3.7 Magnesium Level 2.0 Medications Medication Current Medications IV Flush (NS 3 ml) 3 ml PER PROTOCOL IV ; Start 07/01/18 at 13:00 Ondansetron HCl (Zofran Inj) 4 mg Q6H PRN IV NAUSEA/VOMITING; Start 07/01/18 at 13:00 Acetaminophen (Tylenol Tab) 650 mg Q6H PRN PO .PAIN 1-3 OR TEMP; Start 07/01/18 at 13:00 Acetaminophen/ Hydrocodone Bitart ([place] (5/325)) 1 tab Q6H PRN PO .MOD PAIN 4- 6 Last administered on 07/04/18 17:19; Admin Dose 1 TAB; Start 07/01/18 at 13:00 Morphine Sulfate (morphine) 2 mg Q4H PRN IV .SEVERE PAIN 7-10 Last administered on 07/05/18 05:53; Admin Dose 2 MG; Start 07/01/18 at 13:00 Losartan Potassium (Cozaar) 25 mg DAILY PO Last administered on 07/05/18 08:29; Admin Dose 25 MG; Start 07/01/18 at 13:30 Sodium Hypochlorite (Dakins Diluted ()) 1 applic DAILY TP Last administered on 07/03/18 09:18; Admin Dose 1 APPLIC; Start 07/02/18 at 10:00 Cefepime HCl 50 ml @ 100 mls/hr Q12 IVPB Last administered on 07/05/18 08:28; Admin Dose 100 MLS/HR; Start 07/03/18 at 21:00 Levofloxacin (Levaquin) 750 mg DAILY@06 PO Last administered on 07/05/18 05 :51; Admin Dose 750 MG; Start 07/04/18 at 06:00 JANELLE DODD NP Jul 05, 2018 15:01
--- NOTE | 2018-07-05 16:09 | CONS ---
Assessment/Plan Assessment/Plan Hospital Course (Demo Recall) No acute changes, awake, looks comfortable Antimicrobials: Cefepime, Levaquin Physical examination: Well-nourished well-developed elderly woman who is awake in no distress. Head atraumatic normocephalic sclera nonicteric. Neck is supple. Chest rise symmetrical breath sounds clear. Heart: S1-S2. Abdomen soft bowel sounds present. Extremities with right lower extremity dressing with purulent and bloody drainage Assessment: 1. Right lower extremity cellulitis, chronic wound 2. Peripheral arterial disease Plan: Remains stable, no malignancy per patho, continue abx, wound vac and wound care per podiatry. Anticipate dc on oral Clinda and Levaquin Consultation Date/Type/Reason Admit Date/Time Jul 01, 2018 at 11:42 Initial Consult Date Type of Consult id Date/Time of Note DATE: 07/05/18 TIME: 16:06 Exam/Review of Systems Exam Vitals Vital Signs Date Temp Pulse Resp B/P (MAP) Pulse Ox O2 O2 Flow FiO2 Time Delivery Rate 07/05/18 97.8 80 18 105/67 98 14:00 (80) 07/04/18 Room Air 09:41 Intake and Output 07/04/18 07/04/18 07/05/18 1515:00 23:00 07:00 IntakeIntake Total 1370 ml 550 ml OutputOutput Total 5 ml 20 ml BalanceBalance 1365 ml 530 ml Results Result Diagram: 07/05/18 0528 07/05/18 0528 Results 24hrs Laboratory Tests Test 07/05/18 05:28 White Blood Count 7.5 Red Blood Count 4.22 Hemoglobin 11.9 L Hematocrit 36.7 L Mean Corpuscular Volume 87.0 Mean Corpuscular Hemoglobin 28.2 L Mean Corpuscular Hemoglobin Concent 32.4 Red Cell Distribution Width 12.1 Platelet Count 352 Mean Platelet Volume 8.8 Immature Granulocytes % 0.500 H Neutrophils % 53.0 Lymphocytes % 31.1 Monocytes % 8.2 Eosinophils % 6.4 Basophils % 0.8 Nucleated Red Blood Cells % 0.0 Immature Granulocytes # 0.040 H Neutrophils # 4.0 Lymphocytes # 2.3 Monocytes # 0.6 Eosinophils # 0.5 Basophils # 0.1 Nucleated Red Blood Cells # 0.0 Sodium Level 141 Potassium Level 3.7 Chloride Level 107 Carbon Dioxide Level 28 Anion Gap 6 Blood Urea Nitrogen 10 Creatinine 0.50 Est Glomerular Filtrat Rate mL/min > 60 Glucose Level 106 Calcium Level 9.1 Phosphorus Level 3.7 Magnesium Level 2.0 Medications Medication Current Medications IV Flush (NS 3 ml) 3 ml PER PROTOCOL IV ; Start 07/01/18 at 13:00 Ondansetron HCl (Zofran Inj) 4 mg Q6H PRN IV NAUSEA/VOMITING; Start 07/01/18 at 13:00 Acetaminophen (Tylenol Tab) 650 mg Q6H PRN PO .PAIN 1-3 OR TEMP; Start 07/01/18 at 13:00 Acetaminophen/ Hydrocodone Bitart ([place] (5/325)) 1 tab Q6H PRN PO .MOD PAIN 4- 6 Last administered on 07/04/18 17:19; Admin Dose 1 TAB; Start 07/01/18 at 1 3:00 Morphine Sulfate (morphine) 2 mg Q4H PRN IV .SEVERE PAIN 7-10 Last administered on 07/05/18 05:53; Admin Dose 2 MG; Start 07/01/18 at 13:00 Losartan Potassium (Cozaar) 25 mg DAILY PO Last administered on 07/05/18 08:29; Admin Dose 25 MG; Start 07/01/18 at 13:30 Sodium Hypochlorite (Dakins Diluted ()) 1 applic DAILY TP Last administered on 07/03/18 09:18; Admin Dose 1 APPLIC; Start 07/02/18 at 10:00 Cefepime HCl 50 ml @ 100 mls/hr Q12 IVPB Last administered on 07/05/18 08:28; Admin Dose 100 MLS/HR; Start 07/03/18 at 21:00 Levofloxacin (Levaquin) 750 mg DAILY@06 PO Last administered on 07/05/18 05:51; Admin Dose 750 MG; Start 07/04/18 at 06:00 SONALI DE ANDA NP Jul 05, 2018 16:08
[2018-07-05 20:22] VITALS: BP 126/72; PULSE 72; RESP 18
[2018-07-06 03:11] VITALS: BP 136/81; PULSE 68; RESP 20
[2018-07-06] MEDS: LEVOFLOXACIN 750 MG TABLET PO SCH (06:10)
[2018-07-06 08:12] VITALS: BP 137/73; PULSE 77; RESP 17
[2018-07-06] MEDS: DAKINS 0.0125%(1/40) 473 ML SOLUTION TP SCH (08:44)
[2018-07-06] MEDS: CEFEPIME 1GM/50 ML (PMX) 50 ML IVPB SCH ×2 (08:52→21:02)
[2018-07-06] MEDS: LOSARTAN 25 MG TAB PO SCH (08:52)
[2018-07-06] MEDS: morphine 2 MG INJ IV PRN (11:11)
--- NOTE | 2018-07-06 12:14 | PN ---
Date/Time of Note Date/Time of Note DATE: 07/06/18 TIME: 12:12 Assessment/Plan VTE Prophylaxis Risk score (from Ns)>0 risk: 5 SCD applied (from Ns): Yes Pharmacological prophylaxis: NA/contraindicated Pharm contraindication: anticoag not tolerated Lines/Catheters [facility] (from [facility] Peripheral IV Urinary Cath still in place: No Assessment/Plan Hospital Course SUBJECTIVE: No acute overnight episodes. OBJECTIVE: Vital signs-see below PHYSICAL EXAM: Constitutional: Well-developed, well-nourished not in acute distress. HEENT: Head atraumatic and normocephalic. Eyes: Extraocular muscles intact. Anicteric sclerae. Pupils equal bilaterally, reactive to light. NECK: Supple without lymph node. CHEST: Clear and good breath sounds equally. No wheezing. No rhonchi. HEART: S1, S2. Regular rate and rhythm. ABDOMEN: Soft with no rebound tenderness. Bowel sounds were present. EXTREMITIES: RLE covered with LUCRETIA wrap/dressing c/d/i. Full range of motion in all the extremities. No cyanosis, clubbing or edema. NEUROLOGIC: Alert and oriented x3. No focal deficit. No sensory deficit. PSYCHOSOCIAL: In a good mood. No signs of depression. INTEGUMENTARY:moist mucous membranes. Good skin turgor, intact. ASSESSMENT AND PLAN:62 yo female w/ large right lower leg ulceration of unclear etiology RLE Ulceration/Cellulitis: - s/p operative management by Dr Grullon - Wound vac per surgery - Abx per ID Hypertension: - Losartan DVT prophylaxis. -Left lower extremity SCD. Dc planning: Plan was to dc home with home health for wound VAC/HH services. Now family requests SNF as pt lives alone and donot have a adequate caregiver assistance. CM to find more detail about home his caregiver assistance home health/loss prevention associate can provide and if this is not adequate, patient needs to be discharged to long term facility. Case discussed with Result Diagram: 07/05/1852707/05/18527 Exam/Review of Systems Exam Vitals Vital Signs Date Temp Pulse Resp B/P (MAP) Pulse Ox O2 O2 Flow FiO2 Time Delivery Rate 07/06/18 97.8 77 17 137/73 94 08:12 (94) 07/04/18 Room Air 09:41 Intake and Output 07/05/18 07/05/18 07/06/18 1515:00 23:00 07:00 IntakeIntake Total 990 ml 450 ml OutputOutput Total 125 ml BalanceBalance 990 ml 325 ml Medications Medication Current Medications IV Flush (NS 3 ml) 3 ml PER PROTOCOL IV ; Start 07/01/18 at 13:00 Ondansetron HCl (Zofran Inj) 4 mg Q6H PRN IV NAUSEA/VOMITING; Start 07/01/18 at 13:00 Acetaminophen (Tylenol Tab) 650 mg Q6H PRN PO .PAIN 1-3 OR TEMP; Start 07/01/18 at 13:00 Acetaminophen/ Hydrocodone Bitart ([place] (5/325)) 1 tab Q6H PRN PO .MOD PAIN 4- 6 Last administered on 07/04/18 17:19; Admin Dose 1 TAB; Start 07/01/18 at 13:0 0 Morphine Sulfate (morphine) 2 mg Q4H PRN IV .SEVERE PAIN 7-10 Last administered on 07/06/18 11:11; Admin Dose 2 MG; Start 07/01/18 at 13:00 Losartan Potassium (Cozaar) 25 mg DAILY PO Last administered on 07/06/18 08:52; Admin Dose 25 MG; Start 07/01/18 at 13:30 Sodium Hypochlorite (Dakins Diluted ()) 1 applic DAILY TP Last administered on 07/03/18 09:18; Admin Dose 1 APPLIC; Start 07/02/18 at 10:00 Cefepime HCl 50 ml @ 100 mls/hr Q12 IVPB Last administered on 07/06/18 08:52; Admin Dose 100 MLS/HR; Start 07/03/18 at 21:00 Levofloxacin (Levaquin) 750 mg DAILY@06 PO Last administered on 07/06/18 06:10; Admin Dose 750 MG; Start 07/04/18 at 06:00 JANELLE DODD NP Jul 06, 2018 12:14
[2018-07-06 14:12] VITALS: BP 117/67; PULSE 98; RESP 18
--- NOTE | 2018-07-06 14:30 | CONS ---
Assessment/Plan Assessment/Plan Hospital Course (Demo Recall) No acute changes, alert, feels good, no fevers Antimicrobials: Cefepime, Levaquin Physical examination: Well-nourished well-developed elderly woman who is awake in no distress. Head atraumatic normocephalic sclera nonicteric. Neck is supple. Chest rise symmetrical breath sounds clear. Heart: S1-S2. Abdomen soft bowel sounds present. Extremities with right lower extremity dressing with purulent and bloody drainage Assessment: 1. Right lower extremity cellulitis, chronic wound 2. Peripheral arterial disease Plan: Remains stable, no malignancy per patho, continue abx, wound vac and wound care per podiatry. Anticipate dc on oral Clinda and Levaquin for 2 weeks Consultation Date/Type/Reason Admit Date/Time Jul 01, 2018 at 11:42 Initial Consult Date Type of Consult id Date/Time of Note DATE: 07/06/18 TIME: 14:30 Exam/Review of Systems Exam Vitals Vital Signs Date Temp Pulse Resp B/P (MAP) Pulse Ox O2 O2 Flow FiO2 Time Delivery Rate 07/06/18 98.5 98 18 117/67 97 14:12 (84) 07/04/18 Room Air 09:41 Intake and Output 07/05/18 07/05/18 07/06/18 1515:00 23:00 07:00 IntakeIntake Total 990 ml 450 ml OutputOutput Total 125 ml BalanceBalance 990 ml 325 ml Results Result Diagram: 07/05/18 0528 07/05/18 0528 Medications Medication Current Medications IV Flush (NS 3 ml) 3 ml PER PROTOCOL IV ; Start 07/01/18 at 13:00 Ondansetron HCl (Zofran Inj) 4 mg Q6H PRN IV NAUSEA/VOMITING; Start 07/01/18 at 13:00 Acetaminophen (Tylenol Tab) 650 mg Q6H PRN PO .PAIN 1-3 OR TEMP; Start 07/01/18 at 13:00 Acetaminophen/ Hydrocodone Bitart ([place] (5/325)) 1 tab Q6H PRN PO .MOD PAIN 4- 6 Last administered on 07/04/18at 17:19; Admin Dose 1 TAB; Start 07/01/18 at 13:00 Morphine Sulfate (morphine) 2 mg Q4H PRN IV .SEVERE PAIN 7-10 Last administered on 07/06/18 11:11; Admin Dose 2 MG; Start 07/01/18 at 13:00 Losartan Potassium (Cozaar) 25 mg DAILY PO Last administered on 07/06/18 08:52; Admin Dose 25 MG; Start 07/01/18 at 13:30 Sodium Hypochlorite (Dakins Diluted ()) 1 applic DAILY TP Last administered on 07/03/18 09:18; Admin Dose 1 APPLIC; Start 07/02/18 at 10:00 Cefepime HCl 50 ml @ 100 mls/hr Q12 IVPB Last administered on 07/06/18 08:52; Admin Dose 100 MLS/HR; Start 07/03/18 at 21:00 Levofloxacin (Levaquin) 750 mg DAILY@06 PO Last administered on 07/06/18 06:10; Admin Dose 750 MG; Start 07/04/18 at 06:00 SONALI DE ANDA NP Jul 06, 2018 14:30
[2018-07-06 20:00] VITALS: BP 116/74; PULSE 82; RESP 19
[2018-07-07 02:00] VITALS: BP 131/72; PULSE 69; RESP 18
[2018-07-07] MEDS: LEVOFLOXACIN 750 MG TABLET PO SCH (06:28)
[2018-07-07 08:21] VITALS: BP 131/71; PULSE 73; RESP 18
[2018-07-07] MEDS: DAKINS 0.0125%(1/40) 473 ML SOLUTION TP SCH (09:00)
[2018-07-07] MEDS: CEFEPIME 1GM/50 ML (PMX) 50 ML IVPB SCH ×2 (09:40→21:12)
[2018-07-07] MEDS: LOSARTAN 25 MG TAB PO SCH (09:40)
--- NOTE | 2018-07-07 10:03 | PN ---
Date/Time of Note Date/Time of Note DATE: 07/07/18 TIME: 10:01 Assessment/Plan VTE Prophylaxis Risk score (from Ns)>0 risk: 4 SCD applied (from [facility] [place]): Yes Pharmacological prophylaxis: NA/contraindicated Pharm contraindication: anticoag not tolerated Lines/Catheters IV [facility] Type (from [facility] [place] Urinary Cath still in place: No Assessment/Plan Hospital Course SUBJECTIVE: No acute overnight episodes. OBJECTIVE: Vital signs-see below PHYSICAL EXAM: Constitutional: Well-developed, well-nourished not in acute distress. HEENT: Head atraumatic and normocephalic. Eyes: Extraocular muscles intact. Anicteric sclerae. Pupils equal bilaterally, reactive to light. NECK: Supple without lymph node. CHEST: Clear and good breath sounds equally. No wheezing. No rhonchi. HEART: S1, S2. Regular rate and rhythm. ABDOMEN: Soft with no rebound tenderness. Bowel sounds were present. EXTREMITIES: RLE covered with LUCRETIA wrap/dressing c/d/i. Full range of motion in all the extremities. No cyanosis, clubbing or edema. NEUROLOGIC: Alert and oriented x3. No focal deficit. No sensory deficit. PSYCHOSOCIAL: In a good mood. No signs of depression. INTEGUMENTARY:moist mucous membranes. Good skin turgor, intact. ASSESSMENT AND PLAN:62 yo female w/ large right lower leg ulceration of unclear etiology RLE Ulceration/Cellulitis: - s/p operative management by Dr Grullon - Wound vac per surgery - Abx per ID-recommended Clinda and Levaquin for total 2 weeks Hypertension: - Losartan DVT prophylaxis. -Left lower extremity SCD. Dc planning:CM following on SNF Placement. Case discussed with Cont Hosp Indication/DC Plan: placement Result Diagram: 07/07/1834 07/07/1834 Results 24hrs Laboratory Tests Test 07/07/18 05:34 White Blood Count 9.2 # Red Blood Count 4.77 Hemoglobin 13.4 Hematocrit 42.0 Mean Corpuscular Volume 88.1 Mean Corpuscular Hemoglobin 28.1 L Mean Corpuscular Hemoglobin Concent 31.9 L Red Cell Distribution Width 12.4 Platelet Count 387 Mean Platelet Volume 9.0 Immature Granulocytes % 1.200 H Neutrophils % 56.2 Lymphocytes % 27.5 Monocytes % 6.8 Eosinophils % 7.1 H Basophils % 1.2 Nucleated Red Blood Cells % 0.0 Immature Granulocytes # 0.110 H Neutrophils # 5.2 Lymphocytes # 2.5 Monocytes # 0.6 Eosinophils # 0.7 H Basophils # 0.1 Nucleated Red Blood Cells # 0.0 Sodium Level 141 Potassium Level 3.9 Chloride Level 108 Carbon Dioxide Level 27 Anion Gap 6 Blood Urea Nitrogen 17 Creatinine 0.55 Est Glomerular Filtrat Rate mL/min > 60 Glucose Level 104 Calcium Level 9.3 Exam/Review of Systems Exam Vitals Vital Signs Date Temp Pulse Resp B/P (MAP) Pulse Ox O2 O2 Flow FiO2 Time Delivery Rate 07/07/18 98.9 73 18 131/71 99 08:21 (91) 07/04/18 Room Air 09:41 Intake and Output 07/06/18 07/06/18 07/07/18 1515:00 23:00 07:00 IntakeIntake Total 530 ml 290 ml OutputOutput Total 125 ml 50 ml BalanceBalance 405 ml 290 ml -50 ml Results Results 24hrs Laboratory Tests Test 07/07/18 05:34 White Blood Count 9.2 # Red Blood Count 4.77 Hemoglobin 13.4 Hematocrit 42.0 Mean Corpuscular Volume 88.1 Mean Corpuscular Hemoglobin 28.1 L Mean Corpuscular Hemoglobin Concent 31.9 L Red Cell Distribution Width 12.4 Platelet Count 387 Mean Platelet Volume 9.0 Immature Granulocytes % 1.200 H Neutrophils % 56.2 Lymphocytes % 27.5 Monocytes % 6.8 Eosinophils % 7.1 H Basophils % 1.2 Nucleated Red Blood Cells % 0.0 Immature Granulocytes # 0.110 H Neutrophils # 5.2 Lymphocytes # 2.5 Monocytes # 0.6 Eosinophils # 0.7 H Basophils # 0.1 Nucleated Red Blood Cells # 0.0 Sodium Level 141 Potassium Level 3.9 Chloride Level 108 Carbon Dioxide Level 27 Anion Gap 6 Blood Urea Nitrogen 17 Creatinine 0.55 Est Glomerular Filtrat Rate mL/min > 60 Glucose Level 104 Calcium Level 9.3 Medications Medication Current Medications IV Flush (NS 3 ml) 3 ml PER PROTOCOL IV ; Start 07/01/18 at 13:00 Ondansetron HCl (Zofran Inj) 4 mg Q6H PRN IV NAUSEA/VOMITING; Start 07/01/18 at 13:00 Acetaminophen (Tylenol Tab) 650 mg Q6H PRN PO .PAIN 1-3 OR TEMP; Start 07/01/18 at 13:00 Acetaminophen/ Hydrocodone Bitart ([place] (5/325)) 1 tab Q6H PRN PO .MOD PAIN 4- 6 Last administered on 07/04/18 17:19; Admin Dose 1 TAB; Start 07/01/18 at 13:00 Morphine Sulfate (morphine) 2 mg Q4H PRN IV .SEVERE PAIN 7-10 Last administered on 07/06/18 11:11; Admin Dose 2 MG; Start 07/01/18 at 13:00 Losartan Potassium (Cozaar) 25 mg DAILY PO Last administered on 07/07/18 09:40; Admin Dose 25 MG; Start 07/01/18 at 13:30 Sodium Hypochlorite (Dakins Diluted ()) 1 applic DAILY TP Last administered on 07/03/18 09:18; Admin Dose 1 APPLIC; Start 07/02/18 at 10:00 Cefepime HCl 50 ml @ 100 mls/hr Q12 IVPB Last administered on 07/07/18 09:40; Admin Dose 100 MLS/HR; Start 07/03/18 at 21:00 Levofloxacin (Levaquin) 750 mg DAILY@06 PO Last administered on 07/07/18 06:28; Admin Dose 750 MG; Start 07/04/18 at 06:00 JANELLE DODD NP Jul 07, 2018 10:03
--- NOTE | 2018-07-07 14:34 | CONS ---
Assessment/Plan Assessment/Plan Hospital Course (Demo Recall) No acute changes, alert, feels good denies pain Antimicrobials: Cefepime, Levaquin Physical examination: Well-nourished well-developed elderly woman who is awake in no distress. Head atraumatic normocephalic sclera nonicteric. Neck is supple. Chest rise symmetrical breath sounds clear. Heart: S1-S2. Abdomen soft bowel sounds present. Extremities with right lower extremity dressing with purulent and bloody drainage Assessment: 1. Right lower extremity cellulitis, chronic wound 2. Peripheral arterial disease Plan: Remains stable, continue on current abx while in house. Anticipate dc on oral Clinda and Levaquin for 2 weeks Consultation Date/Type/Reason Admit Date/Time Jul 01, 2018 at 11:42 Initial Consult Date Type of Consult id Date/Time of Note DATE: 07/07/18 TIME: 14:34 Exam/Review of Systems Exam Vitals Vital Signs Date Temp Pulse Resp B/P (MAP) Pulse Ox O2 O2 Flow FiO2 Time Delivery Rate 07/07/18 98.9 73 18 131/71 99 08:21 (91) 07/04/18 Room Air 09:41 Intake and Output 07/06/18 07/06/18 07/07/18 1414:59 22:59 06:59 IntakeIntake Total 530 ml 290 ml OutputOutput Total 125 ml 50 ml BalanceBalance 405 ml 290 ml -50 ml Results Result Diagram: 07/07/18 0534 07/07/18 0534 Results 24hrs Laboratory Tests Test 07/07/18 05:34 White Blood Count 9.2 # Red Blood Count 4.77 Hemoglobin 13.4 Hematocrit 42.0 Mean Corpuscular Volume 88.1 Mean Corpuscular Hemoglobin 28.1 L Mean Corpuscular Hemoglobin Concent 31.9 L Red Cell Distribution Width 12.4 Platelet Count 387 Mean Platelet Volume 9.0 Immature Granulocytes % 1.200 H Neutrophils % 56.2 Lymphocytes % 27.5 Monocytes % 6.8 Eosinophils % 7.1 H Basophils % 1.2 Nucleated Red Blood Cells % 0.0 Immature Granulocytes # 0.110 H Neutrophils # 5.2 Lymphocytes # 2.5 Monocytes # 0.6 Eosinophils # 0.7 H Basophils # 0.1 Nucleated Red Blood Cells # 0.0 Sodium Level 141 Potassium Level 3.9 Chloride Level 108 Carbon Dioxide Level 27 Anion Gap 6 Blood Urea Nitrogen 17 Creatinine 0.55 Est Glomerular Filtrat Rate mL/min > 60 Glucose Level 104 Calcium Level 9.3 Medications Medication Current Medications IV Flush (NS 3 ml) 3 ml PER PROTOCOL IV ; Start 07/01/18 at 13:00 Ondansetron HCl (Zofran Inj) 4 mg Q6H PRN IV NAUSEA/VOMITING; Start 07/01/18 at 13:00 Acetaminophen (Tylenol Tab) 650 mg Q6H PRN PO .PAIN 1-3 OR TEMP; Start 07/01/18 at 13:00 Acetaminophen/ Hydrocodone Bitart ([place] (5/325)) 1 tab Q6H PRN PO .MOD PAIN 4- 6 Last administered on 07/04/18 17:19; Admin Dose 1 TAB; Start 07/01/18 at 13:00 Morphine Sulfate (morphine) 2 mg Q4H PRN IV .SEVERE PAIN 7-10 Last administered on 07/06/18 11:11; Admin Dose 2 MG; Start 07/01/18 at 13:00 Losartan Potassium (Cozaar) 25 mg DAILY PO Last administered on 07/07/18 09:40; Admin Dose 25 MG; Start 07/01/18 at 13:30 Sodium Hypochlorite (Dakins Diluted ()) 1 applic DAILY TP Last administered on 07/03/18 09:18; Admin Dose 1 APPLIC; Start 07/02/18 at 10:00 Cefepime HCl 50 ml @ 100 mls/hr Q12 IVPB Last administered on 07/07/18 09:40; Admin Dose 100 MLS/HR; Start 07/03/18 at 21:00 Levofloxacin (Levaquin) 750 mg DAILY@06 PO Last administered on 07/07/18 06:28; Admin Dose 750 MG; Start 07/04/18 at 06:00 SONALI DE ANDA NP Jul 07, 2018 14:34
[2018-07-07 14:52] VITALS: BP 118/73; PULSE 74; RESP 18
[2018-07-07 20:00] VITALS: BP 122/75; PULSE 78; RESP 18
[2018-07-07] MEDS: HYDROCODONE/APAP (5/325) TAB PO PRN (21:21)
[2018-07-08 02:00] VITALS: BP 116/65; PULSE 62; RESP 18
[2018-07-08] MEDS: LEVOFLOXACIN 750 MG TABLET PO SCH (06:39)
[2018-07-08 08:00] VITALS: BP 143/81; PULSE 62; RESP 18
[2018-07-08] MEDS: LOSARTAN 25 MG TAB PO SCH (08:50)
[2018-07-08] MEDS: CEFEPIME 1GM/50 ML (PMX) 50 ML IVPB SCH ×2 (08:50→21:24)
[2018-07-08] MEDS: NYSTATIN 30 GM POWDER BTL TOP SCH ×2 (08:51→21:25)
[2018-07-08] MEDS: DAKINS 0.0125%(1/40) 473 ML SOLUTION TP SCH (08:51)
[2018-07-08 14:00] VITALS: BP 132/72; PULSE 72; RESP 16
--- NOTE | 2018-07-08 15:43 | PN ---
Date/Time of Note Date/Time of Note DATE: 07/08/18 TIME: 15:39 Assessment/Plan VTE Prophylaxis Risk score (from Ns)>0 risk: 5 SCD applied (from Ns): Yes SCD contraindicated: bilateral LE trauma Pharmacological prophylaxis: heparin Lines/Catheters IV Catheter Type (from Nrsg): Saline Lock Urinary Cath still in place: No Assessment/Plan Problems: (1) Open leg wound Status: Acute Comment: Resting nicely and has wound VAC in place. Consideration for case management to help with discharge planning Qualifiers: Encounter type: initial encounter Laterality: right Qualified Codes: S81.801A - Unspecified open wound, right lower leg, initial encounter (2) Peripheral vascular disease Status: Chronic Comment: Noted. Do not believe this is significant and necessitate intervention at this moment (3) Essential hypertension Status: Chronic Comment: Adequate control (4) Vitamin D deficiency Status: Chronic Comment: Replace Result Diagram: 07/07/18 0534 07/07/18 0534 Subjective 24 Hr Interval Summary Free Text/Dictation In sitting her chair with her leg up on pillows Constitutional: no complaints Respiratory: no complaints Cardiovascular: no complaints Gastrointestinal: no complaints Exam/Review of Systems Exam Vitals Vital Signs Date Temp Pulse Resp B/P (MAP) Pulse Ox O2 O2 Flow FiO2 Time Delivery Rate 07/08/18 98.8 72 16 132/72 94 14:00 (92) 07/07/18 Room Air 14:52 Intake and Output 07/07/18 07/07/18 07/08/18 1515:00 23:00 07:00 IntakeIntake Total 530 ml 290 ml OutputOutput Total 0 ml BalanceBalance 530 ml 290 ml 0 ml Constitutional: alert, oriented Respiratory: clear to auscultation, normal air movement Cardiovascular: regular rate and rhythm, nl pulses Gastrointestinal: soft, nl liver, spleen, non-tender Medications Medication Current Medications IV Flush (NS 3 ml) 3 ml PER PROTOCOL IV ; Start 07/01/18 at 13:00 Ondansetron HCl (Zofran Inj) 4 mg Q6H PRN IV NAUSEA/VOMITING; Start 07/01/18 at 13:00 Acetaminophen (Tylenol Tab) 650 mg Q6H PRN PO .PAIN 1-3 OR TEMP; Start 07/01/18 at 13:00 Acetaminophen/ Hydrocodone Bitart ([place] (5/325)) 1 tab Q6H PRN PO .MOD PAIN 4- 6 Last administered on 07/07/18 21:21; Admin Dose 1 TAB; Start 07/01/18 at 13:00 Morphine Sulfate (morphine) 2 mg Q4H PRN IV .SEVERE PAIN 7-10 Last administered on 07/06/18 11:11; Admin Dose 2 MG; Start 07/01/18 at 13:00 Losartan Potassium (Cozaar) 25 mg DAILY PO Last administered on 07/08/18 08:50; Admin Dose 25 MG; Start 07/01/18 at 13:30 Sodium Hypochlorite (Dakins Diluted ()) 1 applic DAILY TP Last administered on 07/08/18 08:51; Admin Dose 1 APPLIC; Start 07/02/18 at 10:00 Cefepime HCl 50 ml @ 100 mls/hr Q12 IVPB Last administered on 07/08/18 08:50; Admin Dose 100 MLS/HR; Start 07/03/18 at 21:00 Levofloxacin (Levaquin) 750 mg DAILY@06 PO Last administered on 07/08/18 06:39; Admin Dose 750 MG; Start 07/04/18 at 06:00 Nystatin (Nystatin Powder) 1 applic BID TOP Last administered on 07/08/18 08:51; Admin Dose 1 APPLIC; Start 07/08/18 at 09:00 LEIGHANN ENRIQUEZ MD Jul 08, 2018 15:43
[2018-07-08] MEDS: morphine 2 MG INJ IV PRN (16:29)
[2018-07-08] MEDS ORDERED: ERGOCALCIFEROL (8000 UNITS/ML PO SYG) PO ONE (16:30)
[2018-07-08 19:37] VITALS: BP 110/58; PULSE 70; RESP 17
[2018-07-09 02:08] VITALS: BP 118/68; PULSE 72; RESP 18
[2018-07-09] MEDS: LEVOFLOXACIN 750 MG TABLET PO SCH (05:43)
[2018-07-09 08:00] VITALS: BP 104/62; PULSE 68; RESP 17
[2018-07-09] MEDS: DAKINS 0.0125%(1/40) 473 ML SOLUTION TP SCH (08:12)
--- NOTE | 2018-07-09 08:57 | PN ---
Date/Time of Note Date/Time of Note DATE: 07/09/18 TIME: 08:56 Assessment/Plan VTE Prophylaxis Risk score (from Ns)>0 risk: 5 SCD applied (from Ns): Yes Pharmacological prophylaxis: heparin Lines/Catheters IV [facility]from [facility] Saline Lock Urinary Cath still in place: No Assessment/Plan Problems: (1) Open leg wound Status: Acute Comment: Continues with wound VAC and IV antibiotic therapy. We will try and get further delineation about discharge planning as well as for ambulation and coordination of care. Qualifiers: Encounter type: initial encounter Laterality: right Qualified Codes: S81.801A - Unspecified open wound, right lower leg, initial encounter (2) Essential hypertension Status: Chronic Comment: Adequate control (3) Vitamin D deficiency Status: Chronic Comment: Being replaced Result Diagram: 07/07/18 0534 07/07/18 0534 Subjective 24 Hr Interval Summary Free Text/Dictation Patient reports that she has not been ambulatory but believes that she is getting better. Constitutional: no complaints (No fevers chills or sweats) Respiratory: no complaints Cardiovascular: no complaints Gastrointestinal: no complaints Exam/Review of Systems Exam Vitals Vital Signs Date Temp Pulse Resp B/P (MAP) Pulse Ox O2 O2 Flow FiO2 Time Delivery Rate 07/09/18 98.2 68 17 104/62 94 Room Air 08:00 (76) Intake and Output 07/08/18 07/08/18 07/09/18 1515:00 23:00 07:00 IntakeIntake Total 1200 ml 630 ml OutputOutput Total 10 ml 10 ml BalanceBalance 1200 ml 620 ml -10 ml Constitutional: alert, oriented Neck: supple, non-tender Respiratory: clear to auscultation, normal air movement Cardiovascular: regular rate and rhythm, nl pulses Medications Medication Current Medications IV Flush (NS 3 ml) 3 ml PER PROTOCOL IV ; Start 07/01/18 at 13:00 Ondansetron HCl (Zofran Inj) 4 mg Q6H PRN IV NAUSEA/VOMITING; Start 07/01/18 at 13:00 Acetaminophen (Tylenol Tab) 650 mg Q6H PRN PO .PAIN 1-3 OR TEMP; Start 07/01/18 at 13:00 Acetaminophen/ Hydrocodone Bitart ([place] (5/325)) 1 tab Q6H PRN PO .MOD PAIN 4- 6 Last administered on 07/07/18 21:21; Admin Dose 1 TAB; Start 07/01/18 at 13:00 Morphine Sulfate (morphine) 2 mg Q4H PRN IV .SEVERE PAIN 7-10 Last administered on 07/08/18 16:29; Admin Dose 2 MG; Start 07/01/18 at 13:00 Losartan Potassium (Cozaar) 25 mg DAILY PO Last administered on 07/08/18 08:50; Admin Dose 25 MG; Start 07/01/18 at 13:30 Sodium Hypochlorite (Dakins Diluted ()) 1 applic DAILY TP Last administered on 07/08/18 08:51; Admin Dose 1 APPLIC; Start 07/02/18 at 10:00 Cefepime HCl 50 ml @ 100 mls/hr Q12 IVPB Last administered on 07/08/18 21:24; Admin Dose 100 MLS/HR; Start 07/03/18 at 21:00 Levofloxacin (Levaquin) 750 mg DAILY@06 PO Last administered on 07/09/18 05:43; Admin Dose 750 MG; Start 07/04/18 at 06:00 Nystatin (Nystatin Powder) 1 applic BID TOP Last administered on 07/08/18 21:25; Admin Dose 1 APPLIC; Start 07/08/18 at 09:00 Cholecalciferol (Vitamin D) 2,000 unit DAILY PO ; Start 07/09/18 at 09:00 LEIGHANN ENRIQUEZ MD Jul 09, 2018 08:57
[2018-07-09] MEDS: LOSARTAN 25 MG TAB PO SCH (09:00)
[2018-07-09] MEDS: CHOLECALCIFEROL 2,000 UNIT CAP PO SCH (09:02)
[2018-07-09] MEDS: NYSTATIN 30 GM POWDER BTL TOP SCH ×2 (09:02→21:11)
[2018-07-09] MEDS: CEFEPIME 1GM/50 ML (PMX) 50 ML IVPB SCH ×2 (09:03→21:10)
[2018-07-09 14:58] VITALS: BP 111/59; PULSE 80; RESP 17
[2018-07-09 19:49] VITALS: BP 102/55; PULSE 81; RESP 20
[2018-07-10 02:00] VITALS: BP 99/53; PULSE 70; RESP 18
[2018-07-10] MEDS: LEVOFLOXACIN 750 MG TABLET PO SCH (05:17)
[2018-07-10 07:51] VITALS: BP 121/67; PULSE 82; RESP 17
[2018-07-10] MEDS: DAKINS 0.0125%(1/40) 473 ML SOLUTION TP SCH (08:24)
[2018-07-10] MEDS: CHOLECALCIFEROL 2,000 UNIT CAP PO SCH (08:27)
[2018-07-10] MEDS: CEFEPIME 1GM/50 ML (PMX) 50 ML IVPB SCH ×2 (08:27→20:37)
[2018-07-10] MEDS: LOSARTAN 25 MG TAB PO SCH (08:27)
[2018-07-10] MEDS: NYSTATIN 30 GM POWDER BTL TOP SCH ×2 (08:28→20:38)
--- NOTE | 2018-07-10 10:54 | PN ---
Date/Time of Note Date/Time of Note DATE: 07/10/18 TIME: 10:51 Assessment/Plan VTE Prophylaxis Risk score (from Ns)>0 risk: 4 [place] [facility] [place] Pharmacological prophylaxis: NA/contraindicated Pharm contraindication: anticoag not tolerated Lines/Catheters IV C[facility]ter Type (from [facility] Saline Lock Urinary Cath still in place: No Assessment/Plan Hospital Course SUBJECTIVE: No acute overnight episodes. OBJECTIVE: Vital signs-see below PHYSICAL EXAM: Constitutional: Well-developed, well-nourished not in acute distress. HEENT: Head atraumatic and normocephalic. Eyes: Extraocular muscles intact. Anicteric sclerae. Pupils equal bilaterally, reactive to light. NECK: Supple without lymph node. CHEST: Clear and good breath sounds equally. No wheezing. No rhonchi. HEART: S1, S2. Regular rate and rhythm. ABDOMEN: Soft with no rebound tenderness. Bowel sounds were present. EXTREMITIES: RLE covered with LUCRETIA wrap/dressing c/d/i. Full range of motion in all the extremities. No cyanosis, clubbing or edema. NEUROLOGIC: Alert and oriented x3. No focal deficit. No sensory deficit. PSYCHOSOCIAL: In a good mood. No signs of depression. INTEGUMENTARY:moist mucous membranes. Good skin turgor, intact. ASSESSMENT AND PLAN:62 yo female w/ large right lower leg ulceration of unclear etiology RLE Ulceration/Cellulitis: - s/p operative management by Dr Grullon - Wound vac per surgery - Abx per ID-recommended Clinda and Levaquin for total 2 weeks (abx started on 07/04) Hypertension: - Losartan DVT prophylaxis. -Left lower extremity SCD. Dc planning:CM following on SNF Placement. Case discussed with Result Diagram: 07/07/1834 07/07/1834 Exam/Review of Systems Exam Vitals Vital Signs Date Temp Pulse Resp B/P (MAP) Pulse Ox O2 O2 Flow FiO2 Time Delivery Rate 07/10/18 98.7 82 17 121/67 96 Room Air 07:51 (85) Intake and Output 07/09/18 07/09/18 07/10/18 1414:59 22:59 06:59 IntakeIntake Total 570 ml 250 ml OutputOutput Total 0 ml 100 ml BalanceBalance 570 ml 250 ml -100 ml Medications Medication Current Medications IV Flush (NS 3 ml) 3 ml PER PROTOCOL IV ; Start 07/01/18 at 13:00 Ondansetron HCl (Zofran Inj) 4 mg Q6H PRN IV NAUSEA/VOMITING; Start 07/01/18 at 13:00 Acetaminophen (Tylenol Tab) 650 mg Q6H PRN PO .PAIN 1-3 OR TEMP; Start 07/01/18 at 13:00 Acetaminophen/ Hydrocodone Bitart ([place] (5/325)) 1 tab Q6H PRN PO .MOD PAIN 4- 6 Last administered on 07/07/18 21:21; Admin Dose 1 TAB; Start 07/01/18 at 13:00 Morphine Sulfate (morphine) 2 mg Q4H PRN IV .SEVERE PAIN 7-10 Last administered on 07/08/18 16:29; Admin Dose 2 MG; Start 07/01/18 at 13:00 Losartan Potassium (Cozaar) 25 mg DAILY PO Last administered on 07/10/18 08:27; Admin Dose 25 MG; Start 07/01/18 at 13:30 Sodium Hypochlorite (Dakins Diluted ()) 1 applic DAILY TP Last administered on 07/08/18 08:51; Admin Dose 1 APPLIC; Start 07/02/18 at 10:00 Cefepime HCl 50 ml @ 100 mls/hr Q12 IVPB Last administered on 07/10/18 08:27; Admin Dose 100 MLS/HR; Start 07/03/18 at 21:00; Stop 07/17/18 at 20:59 Levofloxacin (Levaquin) 750 mg DAILY@06 PO Last administered on 07/10/18 05:17; Admin Dose 750 MG; Start 07/04/18 at 06:00; Stop 07/25/18 at 05:59 Nystatin (Nystatin Powder) 1 applic BID TOP Last administered on 07/10/18 08:28; Admin Dose 1 APPLIC; Start 07/08/18 at 09:00 Cholecalciferol (Vitamin D) 2,000 unit DAILY PO Last administered on 07/10/18 08:27; Admin Dose 2,000 UNIT; Start 07/09/18 at 09:00 JANELLE DODD NP Jul 10, 2018 10:54
--- NOTE | 2018-07-10 15:03 | CONS ---
Assessment/Plan Assessment/Plan Hospital Course (Demo Recall) No acute changes, alert, Antimicrobials: Cefepime, Levaquin Physical examination: Well-nourished well-developed elderly woman who is awake in no distress. Head atraumatic normocephalic sclera nonicteric. Neck is supple. Chest rise symmetrical breath sounds clear. Heart: S1-S2. Abdomen soft bowel sounds present. Extremities with right lower extremity dressing with purulent and bloody drainage Assessment: 1. Right lower extremity cellulitis, chronic wound 2. Peripheral arterial disease Plan: Remains stable, continue on current abx to complete 2 weeks, pending dc arrangements Consultation Date/Type/Reason Admit Date/Time Jul 01, 2018 at 11:42 Initial Consult Date Type of Consult id Date/Time of Note DATE: 07/10/18 TIME: 15:02 Exam/Review of Systems Exam Vitals Vital Signs Date Temp Pulse Resp B/P (MAP) Pulse Ox O2 O2 Flow FiO2 Time Delivery Rate 07/10/18 98.7 82 17 121/67 96 Room Air 07:51 (85) Intake and Output 07/09/18 07/09/18 07/10/18 1515:00 23:00 07:00 IntakeIntake Total 570 ml 250 ml OutputOutput Total 0 ml 100 ml BalanceBalance 570 ml 250 ml -100 ml Results Result Diagram: 07/07/18 0534 07/07/18 0534 Medications Medication Current Medications IV Flush (NS 3 ml) 3 ml PER PROTOCOL IV ; Start 07/01/18 at 13:00 Ondansetron HCl (Zofran Inj) 4 mg Q6H PRN IV NAUSEA/VOMITING; Start 07/01/18 at 13:00 Acetaminophen (Tylenol Tab) 650 mg Q6H PRN PO .PAIN 1-3 OR TEMP; Start 07/01/18 at 13:00 Acetaminophen/ Hydrocodone Bitart ([place] (5/325)) 1 tab Q6H PRN PO .MOD PAIN 4- 6 Last administered on 07/07/18at 21:21; Admin Dose 1 TAB; Start 07/01/18 at 13:00 Morphine Sulfate (morphine) 2 mg Q4H PRN IV .SEVERE PAIN 7-10 Last administered on 07/08/18at 16:29; Admin Dose 2 MG; Start 07/01/18 at 13:00 Losartan Potassium (Cozaar) 25 mg DAILY PO Last administered on 07/10/18 08:27; Admin Dose 25 MG; Start 07/01/18 at 13:30 Sodium Hypochlorite (Dakins Diluted ()) 1 applic DAILY TP Last administered on 07/08/18 08:51; Admin Dose 1 APPLIC; Start 07/02/18 at 10:00 Cefepime HCl 50 ml @ 100 mls/hr Q12 IVPB Last administered on 07/10/18 08:27; Admin Dose 100 MLS/HR; Start 07/03/18 at 21:00; Stop 07/17/18 at 20:59 Levofloxacin (Levaquin) 750 mg DAILY@06 PO Last administered on 07/10/18 05:17; Admin Dose 750 MG; Start 07/04/18 at 06:00; Stop 07/25/18 at 05:59 Nystatin (Nystatin Powder) 1 applic BID TOP Last administered on 07/10/18 08:28; Admin Dose 1 APPLIC; Start 07/08/18 at 09:00 Cholecalciferol (Vitamin D) 2,000 unit DAILY PO Last administered on 07/10/18 08:27; Admin Dose 2,000 UNIT; Start 07/09/18 at 09:00 SONALI DE ANDA NP Jul 10, 2018 15:03
[2018-07-10 15:42] VITALS: BP 99/60; PULSE 89; RESP 17
--- NOTE | 2018-07-10 19:47 | PN ---
DATE: 07/10/2018 SUBJECTIVE: The patient is status post debridement using negative pressure wound therapy. The patie nt relates less pain to right lower extremity. Denies any fever, nausea, vomiting. PHYSICAL EXAMINATION: VITAL SIGNS: Temperature 98.6, pulse 89, respiratory rate 17, blood pressure 99/60, pulse oximetry i s 93 on room air. GENERAL: The patient is alert, oriented x4. EXTREMITIES: Right lower extremity with wound VAC at 125 mmHg continuous setting. There is minimal sanguineous drainage. Cap refill time to toes is present. Compression wrap present. Has a 2+ DP pu lse, right foot. MICROBIOLOGY: Wound cultures: Staph aureus, Pseudomonas and Streptococcus agalactiae group B. LABORATORIES: WBC 9.2, hemoglobin 13.4, hematocrit 42, platelets 387. ASSESSMENT: 1. Chronic right lower extremity ulceration. 2. Venous stasis insufficiency. 3. Edema. 4. Leukocytosis, resolved. 5. Cellulitis, resolving. PLAN: Continue negative pressure wound therapy. At discharge, I recommend outpatient followup, like ly to require skin grafting electively, has future hospitalization pending clinical appearance, is on antibiotics for 2 additional weeks, currently on cefepime and Levaquin. I appreciate ID recommendat ions. Optimize nutritional status. The patient is with vitamin D deficiency and currently being rep laced. The patient is weightbearing as tolerated with postoperative shoe. Dictated By: CAMILA MATHEWS/WU Conf#: [id number] DID#: [id number] CC: LOIDA DAVIS MD;*EndCC*
[2018-07-10 20:15] VITALS: BP 105/53; PULSE 83; RESP 18
[2018-07-11 02:28] VITALS: BP 106/56; PULSE 71; RESP 20
[2018-07-11] MEDS: LEVOFLOXACIN 750 MG TABLET PO SCH (05:35)
[2018-07-11 07:30] VITALS: BP 118/64; PULSE 66; RESP 18
[2018-07-11] MEDS: LOSARTAN 25 MG TAB PO SCH (09:47)
[2018-07-11] MEDS: CHOLECALCIFEROL 2,000 UNIT CAP PO SCH (09:47)
[2018-07-11] MEDS: CEFEPIME 1GM/50 ML (PMX) 50 ML IVPB SCH ×2 (09:47→20:42)
[2018-07-11] MEDS: NYSTATIN 30 GM POWDER BTL TOP SCH ×2 (09:48→20:43)
[2018-07-11] MEDS: DAKINS 0.0125%(1/40) 473 ML SOLUTION TP SCH (09:48)
--- NOTE | 2018-07-11 11:10 | PN ---
Date/Time of Note Date/Time of Note DATE: 07/11/18 TIME: 11:09 Assessment/Plan VTE Prophylaxis Risk score (from Ns)>0 risk: 3 SCD applied (from [facility] [place] Yes Pharmacological prophylaxis: NA/contraindicated Pharm contraindication: anticoag not tolerated Lines/Catheters IV Catheter Type (from [facility]): Saline Lock Urinary Cath still in place: No Assessment/Plan Hospital Course SUBJECTIVE: No acute overnight episodes. OBJECTIVE: Vital signs-see below PHYSICAL EXAM: Constitutional: Well-developed, well-nourished not in acute distress. HEENT: Head atraumatic and normocephalic. Eyes: Extraocular muscles intact. Anicteric sclerae. Pupils equal bilaterally, reactive to light. NECK: Supple without lymph node. CHEST: Clear and good breath sounds equally. No wheezing. No rhonchi. HEART: S1, S2. Regular rate and rhythm. ABDOMEN: Soft with no rebound tenderness. Bowel sounds were present. EXTREMITIES: RLE covered with LUCRETIA wrap/dressing c/d/i. Full range of motion in all the extremities. No cyanosis, clubbing or edema. NEUROLOGIC: Alert and oriented x3. No focal deficit. No sensory deficit. PSYCHOSOCIAL: In a good mood. No signs of depression. INTEGUMENTARY:moist mucous membranes. Good skin turgor, intact. ASSESSMENT AND PLAN:62 yo female w/ large right lower leg ulceration of unclear etiology RLE Ulceration/Cellulitis: - s/p operative management by Dr Grullon - Wound vac per surgery - Abx per ID-recommended Clinda and Levaquin for total 2 weeks (abx started on 07/04) Hypertension: - Losartan DVT prophylaxis. -Left lower extremity SCD. Dc planning:CM following on SNF Placement. Case discussed with Cont Hosp Indication/DC Plan: snf placement Result Diagram: 07/11/18 0603 07/11/18 0604 Results 24hrs Laboratory Tests Test 07/11/18 06:03 07/11/18 06:04 White Blood Count 8.6 Red Blood Count 4.90 Hemoglobin 13.9 Hematocrit 43.4 Mean Corpuscular Volume 88.6 Mean Corpuscular Hemoglobin 28.4 L Mean Corpuscular Hemoglobin Concent 32.0 Red Cell Distribution Width 13.0 Platelet Count 394 Mean Platelet Volume 9.2 Immature Granulocytes % 1.300 H Neutrophils % 49.4 Lymphocytes % 32.3 Monocytes % 7.6 Eosinophils % 7.9 H Basophils % 1.5 Nucleated Red Blood Cells % 0.0 Immature Granulocytes # 0.110 H Neutrophils # 4.3 Lymphocytes # 2.8 Monocytes # 0.7 Eosinophils # 0.7 H Basophils # 0.1 Nucleated Red Blood Cells # 0.0 Sodium Level 143 Potassium Level 4.2 Chloride Level 109 Carbon Dioxide Level 25 Anion Gap 9 Blood Urea Nitrogen 25 H Creatinine 0.53 Est Glomerular Filtrat Rate mL/min > 60 Glucose Level 95 Calcium Level 9.6 Magnesium Level 2.0 Exam/Review of Systems Exam Vitals Vital Signs Date Temp Pulse Resp B/P (MAP) Pulse Ox O2 O2 Flow FiO2 Time Delivery Rate 07/11/18 98.5 66 18 118/64 96 Room Air 07:30 (82) Intake and Output 07/10/18 07/10/18 07/11/18 1515:00 23:00 07:00 IntakeIntake Total 290 ml 50 ml 500 ml OutputOutput Total 60 ml 0 ml BalanceBalance 290 ml -10 ml 500 ml Results Results 24hrs Laboratory Tests Test 07/11/18 06:03 07/11/18 06:04 White Blood Count 8.6 Red Blood Count 4.90 Hemoglobin 13.9 Hematocrit 43.4 Mean Corpuscular Volume 88.6 Mean Corpuscular Hemoglobin 28.4 L Mean Corpuscular Hemoglobin Concent 32.0 Red Cell Distribution Width 13.0 Platelet Count 394 Mean Platelet Volume 9.2 Immature Granulocytes % 1.300 H Neutrophils % 49.4 Lymphocytes % 32.3 Monocytes % 7.6 Eosinophils % 7.9 H Basophils % 1.5 Nucleated Red Blood Cells % 0.0 Immature Granulocytes # 0.110 H Neutrophils # 4.3 Lymphocytes # 2.8 Monocytes # 0.7 Eosinophils # 0.7 H Basophils # 0.1 Nucleated Red Blood Cells # 0.0 Sodium Level 143 Potassium Level 4.2 Chloride Level 109 Carbon Dioxide Level 25 Anion Gap 9 Blood Urea Nitrogen 25 H Creatinine 0.53 Est Glomerular Filtrat Rate mL/min > 60 Glucose Level 95 Calcium Level 9.6 Magnesium Level 2.0 Medications Medication Current Medications IV Flush (NS 3 ml) 3 ml PER PROTOCOL IV ; Start 07/01/18 at 13:00 Ondansetron HCl (Zofran Inj) 4 mg Q6H PRN IV NAUSEA/VOMITING; Start 07/01/18 at 13:00 Acetaminophen (Tylenol Tab) 650 mg Q6H PRN PO .PAIN 1-3 OR TEMP; Start 07/01/18 at 13:00 Acetaminophen/ Hydrocodone Bitart ([place] (5/325)) 1 tab Q6H PRN PO .MOD PAIN 4- 6 Last administered on 07/07/18 21:21; Admin Dose 1 TAB; Start 07/01/18 at 13:00 Morphine Sulfate (morphine) 2 mg Q4H PRN IV .SEVERE PAIN 7-10 Last administered on 07/08/18 16:29; Admin Dose 2 MG; Start 07/01/18 at 13:00 Losartan Potassium (Cozaar) 25 mg DAILY PO Last administered on 07/11/18 09:47; Admin Dose 25 MG; Start 07/01/18 at 13:30 Sodium Hypochlorite (Dakins Diluted ()) 1 applic DAILY TP Last administered on 07/11/18 09:48; Admin Dose 1 APPLIC; Start 07/02/18 at 10:00 Cefepime HCl 50 ml @ 100 mls/hr Q12 IVPB Last administered on 07/11/18 09:47; Admin Dose 100 MLS/HR; Start 07/03/18 at 21:00; Stop 07/17/18 at 20:59 Levofloxacin (Levaquin) 750 mg DAILY@06 PO Last administered on 07/11/18 05:35; Admin Dose 750 MG; Start 07/04/18 at 06:00; Stop 07/25/18 at 05:59 Nystatin (Nystatin Powder) 1 applic BID TOP Last administered on 07/11/18 09:48; Admin Dose 1 APPLIC; Start 07/08/18 at 09:00 Cholecalciferol (Vitamin D) 2,000 unit DAILY PO Last administered on 07/11/18 09:47; Admin Dose 2,000 UNIT; Start 07/09/18 at 09:00 JANELLE DODD NP Jul 11, 2018 11:10
--- NOTE | 2018-07-11 12:52 | CONS ---
Assessment/Plan Assessment/Plan Hospital Course (Demo Recall) No acute changes Antimicrobials: Cefepime, Levaquin Physical examination: Well-nourished well-developed elderly woman who is awake in no distress. Head atraumatic normocephalic sclera nonicteric. Neck is supple. Chest rise symmetrical breath sounds clear. Heart: S1-S2. Abdomen soft bowel sounds present. Extremities with right lower extremity dressing with purulent and bloody drainage Assessment: 1. Right lower extremity cellulitis, chronic wound, s/p debridement 07/04/18 2. Peripheral arterial disease Plan: Remains stable, POD #7, continue abx, last dose on July 18, may change to PO Clinda and Levaquin if IV abx difficult to arrange Consultation Date/Type/Reason Admit Date/Time Jul 01, 2018 at 11:42 Initial Consult Date Type of Consult id Date/Time of Note DATE: 07/11/18 TIME: 12:47 Exam/Review of Systems Exam Vitals Vital Signs Date Temp Pulse Resp B/P (MAP) Pulse Ox O2 O2 Flow FiO2 Time Delivery Rate 07/11/18 98.5 66 18 118/64 96 Room Air 07:30 (82) Intake and Output 07/10/18 07/10/18 07/11/18 1515:00 23:00 07:00 IntakeIntake Total 290 ml 50 ml 500 ml OutputOutput Total 60 ml 0 ml BalanceBalance 290 ml -10 ml 500 ml Results Result Diagram: 07/11/18 0603 07/11/18 0604 Results 24hrs Laboratory Tests Test 07/11/18 06:03 07/11/18 06:04 White Blood Count 8.6 Red Blood Count 4.90 Hemoglobin 13.9 Hematocrit 43.4 Mean Corpuscular Volume 88.6 Mean Corpuscular Hemoglobin 28.4 L Mean Corpuscular Hemoglobin Concent 32.0 Red Cell Distribution Width 13.0 Platelet Count 394 Mean Platelet Volume 9.2 Immature Granulocytes % 1.300 H Neutrophils % 49.4 Lymphocytes % 32.3 Monocytes % 7.6 Eosinophils % 7.9 H Basophils % 1.5 Nucleated Red Blood Cells % 0.0 Immature Granulocytes # 0.110 H Neutrophils # 4.3 Lymphocytes # 2.8 Monocytes # 0.7 Eosinophils # 0.7 H Basophils # 0.1 Nucleated Red Blood Cells # 0.0 Sodium Level 143 Potassium Level 4.2 Chloride Level 109 Carbon Dioxide Level 25 Anion Gap 9 Blood Urea Nitrogen 25 H Creatinine 0.53 Est Glomerular Filtrat Rate mL/min > 60 Glucose Level 95 Calcium Level 9.6 Magnesium Level 2.0 Medications Medication Current Medications IV Flush (NS 3 ml) 3 ml PER PROTOCOL IV ; Start 07/01/18 at 13:00 Ondansetron HCl (Zofran Inj) 4 mg Q6H PRN IV NAUSEA/VOMITING; Start 07/01/18 at 13:00 Acetaminophen (Tylenol Tab) 650 mg Q6H PRN PO .PAIN 1-3 OR TEMP; Start 07/01/18 at 13:00 Acetaminophen/ Hydrocodone Bitart ([place] (5/325)) 1 tab Q6H PRN PO .MOD PAIN 4- 6 Last administered on 07/07/18 21:21; Admin Dose 1 TAB; Start 07/01/18 at 13:00 Morphine Sulfate (morphine) 2 mg Q4H PRN IV .SEVERE PAIN 7-10 Last administered on 07/08/18 16:29; Admin Dose 2 MG; Start 07/01/18 at 13:00 Losartan Potassium (Cozaar) 25 mg DAILY PO Last administered on 07/11/18 09:47; Admin Dose 25 MG; Start 07/01/18 at 13:30 Sodium Hypochlorite (Dakins Diluted ()) 1 applic DAILY TP Last administered on 07/11/18 09:48; Admin Dose 1 APPLIC; Start 07/02/18 at 10:00 Cefepime HCl 50 ml @ 100 mls/hr Q12 IVPB Last administered on 07/11/18 09:47; Admin Dose 100 MLS/HR; Start 07/03/18 at 21:00; Stop 07/17/18 at 20:59 Levofloxacin (Levaquin) 750 mg DAILY@06 PO Last administered on 07/11/18 05:35; Admin Dose 750 MG; Start 07/04/18 at 06:00; Stop 07/25/18 at 05:59 Nystatin (Nystatin Powder) 1 applic BID TOP Last administered on 07/11/18 09:48; Admin Dose 1 APPLIC; Start 07/08/18 at 09:00 Cholecalciferol (Vitamin D) 2,000 unit DAILY PO Last administered on 4/30/19at 09:47; Admin Dose 2,000 UNIT; Start 07/09/18 at 09:00 SONALI DE ANDA NP Jul 11, 2018 12:52
[2018-07-11 14:00] VITALS: BP 111/56; PULSE 71; RESP 20
[2018-07-11] MEDS: morphine 2 MG INJ IV PRN (15:32)
[2018-07-11 20:00] VITALS: BP 101/52; PULSE 70; RESP 20
[2018-07-12 02:43] VITALS: BP 114/57; PULSE 66; RESP 18
[2018-07-12] MEDS: LEVOFLOXACIN 750 MG TABLET PO SCH (06:01)
[2018-07-12 07:45] VITALS: BP 98/54; PULSE 71; RESP 16
[2018-07-12] MEDS: LOSARTAN 25 MG TAB PO SCH (09:00)
[2018-07-12] MEDS: CEFEPIME 1GM/50 ML (PMX) 50 ML IVPB SCH ×2 (10:20→20:41)
[2018-07-12] MEDS: CHOLECALCIFEROL 2,000 UNIT CAP PO SCH (10:22)
[2018-07-12] MEDS: NYSTATIN 30 GM POWDER BTL TOP SCH ×2 (10:23→20:42)
[2018-07-12] MEDS: DAKINS 0.0125%(1/40) 473 ML SOLUTION TP SCH (10:24)
--- NOTE | 2018-07-12 11:41 | PN ---
Date/Time of Note Date/Time of Note DATE: 07/12/18 TIME: 11:40 Assessment/Plan VTE Prophylaxis Risk score (from Ns)>0 risk: 3 SCD applied (from Ns): Yes Pharmacological prophylaxis: NA/contraindicated Pharm contraindication: anticoag not tolerated Lines/Catheters [facility] Saline Lock Urinary Cath still in place: No Assessment/Plan Hospital Course SUBJECTIVE: No acute overnight episodes. OBJECTIVE: Vital signs-see below PHYSICAL EXAM: Constitutional: Well-developed, well-nourished not in acute distress. HEENT: Head atraumatic and normocephalic. Eyes: Extraocular muscles intact. Anicteric sclerae. Pupils equal bilaterally, reactive to light. NECK: Supple without lymph node. CHEST: Clear and good breath sounds equally. No wheezing. No rhonchi. HEART: S1, S2. Regular rate and rhythm. ABDOMEN: Soft with no rebound tenderness. Bowel sounds were present. EXTREMITIES: RLE covered with LUCRETIA wrap/dressing c/d/i. Full range of motion in all the extremities. No cyanosis, clubbing or edema. NEUROLOGIC: Alert and oriented x3. No focal deficit. No sensory deficit. PSYCHOSOCIAL: In a good mood. No signs of depression. INTEGUMENTARY:moist mucous membranes. Good skin turgor, intact. ASSESSMENT AND PLAN:62 yo female w/ large right lower leg ulceration of unclear etiology RLE Ulceration/Cellulitis: - s/p operative management by Dr Grullon - Wound vac per surgery - Abx per ID- last dose on July 18 Hypertension: - Losartan DVT prophylaxis. -Left lower extremity SCD. Dc planning:CM following on SNF Placement. Case discussed with Cont Hosp Indication/DC Plan: placement Result Diagram: 07/11/18 0603 07/11/18 0604 Exam/Review of Systems Exam Vitals Vital Signs Date Temp Pulse Resp B/P (MAP) Pulse Ox O2 O2 Flow FiO2 Time Delivery Rate 07/12/18 98.4 71 16 98/54 (69) 98 Room Air 07:45 Intake and Output 07/11/18 07/11/18 07/12/18 1515:00 23:00 07:00 IntakeIntake Total 50 ml 450 ml 120 ml OutputOutput Total 0 ml 0 ml BalanceBalance 50 ml 450 ml 120 ml Medications Medication Current Medications IV Flush (NS 3 ml) 3 ml PER PROTOCOL IV ; Start 07/01/18 at 13:00 Ondansetron HCl (Zofran Inj) 4 mg Q6H PRN IV NAUSEA/VOMITING; Start 07/01/18 at 13:00 Acetaminophen (Tylenol Tab) 650 mg Q6H PRN PO .PAIN 1-3 OR TEMP; Start 07/01/18 at 13:00 Acetaminophen/ Hydrocodone Bitart ([place] (5/325)) 1 tab Q6H PRN PO .MOD PAIN 4- 6 Last administered on 07/07/18 21:21; Admin Dose 1 TAB; Start 07/01/18 at 13:00 Morphine Sulfate (morphine) 2 mg Q4H PRN IV .SEVERE PAIN 7-10 Last administered on 07/11/18 15:32; Admin Dose 2 MG; Start 07/01/18 at 13:00 Losartan Potassium (Cozaar) 25 mg DAILY PO Last administered on 07/11/18 09:47; Admin Dose 25 MG; Start 07/01/18 at 13:30 Sodium Hypochlorite (Dakins Diluted (40)) 1 applic DAILY TP Last administered on 07/12/18 10:24; Admin Dose 1 APPLIC; Start 07/02/18 at 10:00 Cefepime HCl 50 ml @ 100 mls/hr Q12 IVPB Last administered on 07/12/18 10:20; Admin Dose 100 MLS/HR; Start 07/03/18 at 21:00; Stop 07/17/18 at 20:59 Levofloxacin (Levaquin) 750 mg DAILY@06 PO Last administered on 07/12/18 06:01; Admin Dose 750 MG; Start 07/04/18 at 06:00; Stop 07/25/18 at 05:59 Nystatin (Nystatin Powder) 1 applic BID TOP Last administered on 07/12/18 10:23; Admin Dose 1 APPLIC; Start 07/08/18 at 09:00 Cholecalciferol (Vitamin D) 2,000 unit DAILY PO Last administered on 07/12/18 10:22; Admin Dose 2,000 UNIT; Start 07/09/18 at 09:00 JANELLE DODD NP July 12, 2018 11:41
--- NOTE | 2018-07-12 11:55 | CONS ---
Assessment/Plan Assessment/Plan Hospital Course (Demo Recall) No acute changes awake, looks comfortable, no fevers Antimicrobials: Cefepime, Levaquin Physical examination: Well-nourished well-developed elderly woman who is awake in no distress. Head atraumatic normocephalic sclera nonicteric. Neck is supple. Chest rise symmetrical breath sounds clear. Heart: S1-S2. Abdomen soft bowel sounds present. Extremities with right lower extremity dressing with purulent and bloody drainage Assessment: 1. Right lower extremity cellulitis, chronic wound, s/p debridement 07/04/18 2. Peripheral arterial disease Plan: Remains stable, POD #8, continue abx, last dose on July 18, may change to PO Clinda and Levaquin if IV abx difficult to arrange Consultation Date/Type/Reason Admit Date/Time Jul 01, 2018 at 11:42 Initial Consult Date Type of Consult id Date/Time of Note DATE: 07/12/18 TIME: 11:54 Exam/Review of Systems Exam Vitals Vital Signs Date Temp Pulse Resp B/P (MAP) Pulse Ox O2 O2 Flow FiO2 Time Delivery Rate 07/12/18 98.4 71 16 98/54 (69) 98 Room Air 07:45 Intake and Output 07/11/18 07/11/18 07/12/18 1515:00 23:00 07:00 IntakeIntake Total 50 ml 450 ml 120 ml OutputOutput Total 0 ml 0 ml BalanceBalance 50 ml 450 ml 120 ml Results Result Diagram: 07/11/18 0603 07/11/18 0604 Medications Medication Current Medications IV Flush (NS 3 ml) 3 ml PER PROTOCOL IV ; Start 07/01/18 at 13:00 Ondansetron HCl (Zofran Inj) 4 mg Q6H PRN IV NAUSEA/VOMITING; Start 07/01/18 at 13:00 Acetaminophen (Tylenol Tab) 650 mg Q6H PRN PO .PAIN 1-3 OR TEMP; Start 07/01/18 at 13:00 Acetaminophen/ Hydrocodone Bitart ([place] (5/325)) 1 tab Q6H PRN PO .MOD PAIN 4- 6 Last administered on 07/07/18at 21:21; Admin Dose 1 TAB; Start 07/01/18 at 13:00 Morphine Sulfate (morphine) 2 mg Q4H PRN IV .SEVERE PAIN 7-10 Last administered on 07/11/18 15:32; Admin Dose 2 MG; Start 07/01/18 at 13:00 Losartan Potassium (Cozaar) 25 mg DAILY PO Last administered on 07/11/18 09:47; Admin Dose 25 MG; Start 07/01/18 at 13:30 Sodium Hypochlorite (Dakins Diluted ()) 1 applic DAILY TP Last administered on 07/12/18 10:24; Admin Dose 1 APPLIC; Start 07/02/18 at 10:00 Cefepime HCl 50 ml @ 100 mls/hr Q12 IVPB Last administered on 07/12/18 10:20; Admin Dose 100 MLS/HR; Start 07/03/18 at 21:00; Stop 07/17/18 at 20:59 Levofloxacin (Levaquin) 750 mg DAILY@06 PO Last administered on 07/12/18 06:01; Admin Dose 750 MG; Start 07/04/18 at 06:00; Stop 07/25/18 at 05:59 Nystatin (Nystatin Powder) 1 applic BID TOP Last administered on 07/12/18 10:23; Admin Dose 1 APPLIC; Start 07/08/18 at 09:00 Cholecalciferol (Vitamin D) 2,000 unit DAILY PO Last administered on 07/12/18 10:22; Admin Dose 2,000 UNIT; Start 07/09/18 at 09:00 SONALI DE ANDA NP July 12, 2018 11:55
[2018-07-12 14:39] VITALS: BP 111/57; PULSE 77; RESP 16
[2018-07-12 20:20] VITALS: BP 125/70; PULSE 81; RESP 18
[2018-07-13 02:20] VITALS: BP 121/66; PULSE 71; RESP 18
[2018-07-13] MEDS: LEVOFLOXACIN 750 MG TABLET PO SCH (05:43)
[2018-07-13 07:35] VITALS: BP 119/66; PULSE 69; RESP 19
[2018-07-13] MEDS: LOSARTAN 25 MG TAB PO SCH (09:00)
[2018-07-13] MEDS: CHOLECALCIFEROL 2,000 UNIT CAP PO SCH (09:06)
[2018-07-13] MEDS: MULTIVITAMINS THERAPEUTIC TAB PO SCH (09:06)
[2018-07-13] MEDS: CEFEPIME 1GM/50 ML (PMX) 50 ML IVPB SCH ×2 (09:12→20:53)
[2018-07-13] MEDS: DAKINS 0.0125%(1/40) 473 ML SOLUTION TP SCH (09:12)
[2018-07-13] MEDS: ASCORBIC ACID 500 MG TAB PO SCH ×2 (09:12→20:53)
[2018-07-13] MEDS: NYSTATIN 30 GM POWDER BTL TOP SCH ×2 (09:12→20:58)
--- NOTE | 2018-07-13 13:42 | CONS ---
Assessment/Plan Assessment/Plan Hospital Course (Demo Recall) Alert, feels good, no fevers Antimicrobials: Cefepime, Levaquin Physical examination: Well-nourished well-developed elderly woman who is awake in no distress. Head atraumatic normocephalic sclera nonicteric. Neck is supple. Chest rise symmetrical breath sounds clear. Heart: S1-S2. Abdomen soft bowel sounds present. Extremities with right lower extremity dressing with purulent and bloody drainage Assessment: 1. Right lower extremity cellulitis, chronic wound, s/p debridement 07/04/18 2. Peripheral arterial disease Plan: Remains stable, POD #9, continue abx, last dose on July 18, may change to PO Clinda and Levaquin if IV abx difficult to arrange Consultation Date/Type/Reason Admit Date/Time Jul 01, 2018 at 11:42 Initial Consult Date Type of Consult id Date/Time of Note DATE: 07/13/18 TIME: 13:41 Exam/Review of Systems Exam Vitals Vital Signs Date Temp Pulse Resp B/P (MAP) Pulse Ox O2 O2 Flow FiO2 Time Delivery Rate 07/13/18 97.9 69 19 119/66 98 Room Air 07:35 (83) Intake and Output 07/12/18 07/12/18 07/13/18 1515:00 23:00 07:00 IntakeIntake Total 800 ml 830 ml OutputOutput Total 0 ml BalanceBalance 800 ml 830 ml Results Result Diagram: 07/11/18 0603 07/11/18 0604 Medications Medication Current Medications IV Flush (NS 3 ml) 3 ml PER PROTOCOL IV ; Start 07/01/18 at 13:00 Ondansetron HCl (Zofran Inj) 4 mg Q6H PRN IV NAUSEA/VOMITING; Start 07/01/18 at 13:00 Acetaminophen (Tylenol Tab) 650 mg Q6H PRN PO .PAIN 1-3 OR TEMP; Start 07/01/18 at 13:00 Acetaminophen/ Hydrocodone Bitart ([place] (5/325)) 1 tab Q6H PRN PO .MOD PAIN 4- 6 Last administered on 07/07/18at 21:21; Admin Dose 1 TAB; Start 07/01/18 at 13:00 Morphine Sulfate (morphine) 2 mg Q4H PRN IV .SEVERE PAIN 7-10 Last administered on 07/11/18 15:32; Admin Dose 2 MG; Start 07/01/18 at 13:00 Losartan Potassium (Cozaar) 25 mg DAILY PO Last administered on 07/11/18 09:47; Admin Dose 25 MG; Start 07/01/18 at 13:30 Sodium Hypochlorite (Dakins Diluted ()) 1 applic DAILY TP Last administered on 07/13/18 09:12; Admin Dose 1 APPLIC; Start 07/02/18 at 10:00 Cefepime HCl 50 ml @ 100 mls/hr Q12 IVPB Last administered on 07/13/18 09:12; Admin Dose 100 MLS/HR; Start 07/03/18 at 21:00; Stop 07/17/18 at 20:59 Levofloxacin (Levaquin) 750 mg DAILY@06 PO Last administered on 07/13/18 05:43; Admin Dose 750 MG; Start 07/04/18 at 06:00; Stop 07/25/18 at 05:59 Nystatin (Nystatin Powder) 1 applic BID TOP Last administered on 07/13/18 09:12; Admin Dose 1 APPLIC; Start 07/08/18 at 09:00 Cholecalciferol (Vitamin D) 2,000 unit DAILY PO Last administered on 07/13/18 09:06; Admin Dose 2,000 UNIT; Start 07/09/18 at 09:00 Multivitamins Therapeutic (Theragran) 1 tab DAILY PO Last administered on 07/13/18 09:06; Admin Dose 1 TAB; Start 07/13/18 at 09:00 Ascorbic Acid (Vitamin C) 500 mg BID PO Last administered on 07/13/18 09:12; Admin Dose 500 MG; Start 07/13/18 at 09:00 SONALI DE ANDA NP July 13, 2018 13:42
--- NOTE | 2018-07-13 14:20 | PN ---
Date/Time of Note Date/Time of Note DATE: 07/13/18 TIME: 14:18 Assessment/Plan VTE Prophylaxis Risk score (from Ns)>0 risk: 3 SCD applied (from Ns): Yes Pharmacological prophylaxis: NA/contraindicated Pharm contraindication: anticoag not tolerated Lines/Catheters IV [facility] Saline Lock Urinary Cath still in place: No Assessment/Plan Hospital Course SUBJECTIVE: No acute overnight episodes. OBJECTIVE: Vital signs-see below PHYSICAL EXAM: Constitutional: Well-developed, well-nourished not in acute distress. HEENT: Head atraumatic and normocephalic. Eyes: Extraocular muscles intact. Anicteric sclerae. Pupils equal bilaterally, reactive to light. NECK: Supple without lymph node. CHEST: Clear and good breath sounds equally. No wheezing. No rhonchi. HEART: S1, S2. Regular rate and rhythm. ABDOMEN: Soft with no rebound tenderness. Bowel sounds were present. EXTREMITIES: RLE covered with LUCRETIA wrap/dressing c/d/i. Full range of motion in all the extremities. No cyanosis, clubbing or edema. NEUROLOGIC: Alert and oriented x3. No focal deficit. No sensory deficit. PSYCHOSOCIAL: In a good mood. No signs of depression. INTEGUMENTARY:moist mucous membranes. Good skin turgor, intact. ASSESSMENT AND PLAN:62 yo female w/ large right lower leg ulceration of unclear etiology RLE Ulceration/Cellulitis: - s/p operative management by Dr Grullon - Wound vac per surgery - Abx per ID- last dose on July 18 Hypertension: - Losartan DVT prophylaxis. -Left lower extremity SCD. Dc planning:CM following on SNF Placement. Insurance limitation is a major barrier in finding care home. Patient with no decline in her insulin functional status other than needing wound care and wound VAC. At this time, we will request social media job titles to find outpatient social/family support system available for home health wound VAC management. We will have an official PT evaluation. Case discussed with Result Diagram: 07/11/18 0603 07/11/18 0604 Exam/Review of Systems Exam Vitals Vital Signs Date Temp Pulse Resp B/P (MAP) Pulse Ox O2 O2 Flow FiO2 Time Delivery Rate 07/13/18 97.9 69 19 119/66 98 Room Air 07:35 (83) Intake and Output 07/12/18 07/12/18 07/13/18 1515:00 23:00 07:00 IntakeIntake Total 800 ml 830 ml OutputOutput Total 0 ml BalanceBalance 800 ml 830 ml Medications Medication Current Medications IV Flush (NS 3 ml) 3 ml PER PROTOCOL IV ; Start 07/01/18 at 13:00 Ondansetron HCl (Zofran Inj) 4 mg Q6H PRN IV NAUSEA/VOMITING; Start 07/01/18 at 13:00 Acetaminophen (Tylenol Tab) 650 mg Q6H PRN PO .PAIN 1-3 OR TEMP; Start 07/01/18 at 13:00 Acetaminophen/ Hydrocodone Bitart ([place] (5/325)) 1 tab Q6H PRN PO .MOD PAIN 4- 6 Last administered on 07/07/18 21:21; Admin Dose 1 TAB; Start 07/01/18 at 13:00 Morphine Sulfate (morphine) 2 mg Q4H PRN IV .SEVERE PAIN 7-10 Last administered on 07/11/18 15:32; Admin Dose 2 MG; Start 07/01/18 at 13:00 Losartan Potassium (Cozaar) 25 mg DAILY PO Last administered on 07/11/18 09:47; Admin Dose 25 MG; Start 07/01/18 at 13:30 Sodium Hypochlorite (Dakins Diluted ()) 1 applic DAILY TP Last administered on 07/13/18 09:12; Admin Dose 1 APPLIC; Start 07/02/18 at 10:00 Cefepime HCl 50 ml @ 100 mls/hr Q12 IVPB Last administered on 07/13/18 09:12; Admin Dose 100 MLS/HR; Start 07/03/18 at 21:00; Stop 07/17/18 at 20:59 Levofloxacin (Levaquin) 750 mg DAILY@06 PO Last administered on 07/13/18 05:43; Admin Dose 750 MG; Start 07/04/18 at 06:00; Stop 07/25/18 at 05:59 Nystatin (Nystatin Powder) 1 applic BID TOP Last administered on 07/13/18 09:12; Admin Dose 1 APPLIC; Start 07/08/18 at 09:00 Cholecalciferol (Vitamin D) 2,000 unit DAILY PO Last administered on 5/2/19at 09:06; Admin Dose 2,000 UNIT; Start 07/09/18 at 09:00 Multivitamins Therapeutic (Theragran) 1 tab DAILY PO Last administered on 07/13/18 09:06; Admin Dose 1 TAB; Start 07/13/18 at 09:00 Ascorbic Acid (Vitamin C) 500 mg BID PO Last administered on 07/13/18at 09:12; Admin Dose 500 MG; Start 07/13/18 at 09:00 JANELLE DODD NP July 13, 2018 14:20
[2018-07-13 14:22] VITALS: BP 113/55; PULSE 79; RESP 18
[2018-07-13 20:15] VITALS: BP 116/57; PULSE 85; RESP 18
[2018-07-14 02:15] VITALS: BP 115/61; PULSE 74; RESP 18
[2018-07-14] MEDS: LEVOFLOXACIN 750 MG TABLET PO SCH (05:51)
[2018-07-14 08:00] VITALS: BP 127/67; PULSE 70; RESP 18
[2018-07-14] MEDS: ASCORBIC ACID 500 MG TAB PO SCH ×2 (08:17→20:58)
[2018-07-14] MEDS: LOSARTAN 25 MG TAB PO SCH (08:17)
[2018-07-14] MEDS: CHOLECALCIFEROL 2,000 UNIT CAP PO SCH (08:17)
[2018-07-14] MEDS: MULTIVITAMINS THERAPEUTIC TAB PO SCH (08:17)
[2018-07-14] MEDS: CEFEPIME 1GM/50 ML (PMX) 50 ML IVPB SCH ×2 (08:17→20:56)
[2018-07-14] MEDS: DAKINS 0.0125%(1/40) 473 ML SOLUTION TP SCH (08:17)
[2018-07-14] MEDS: NYSTATIN 30 GM POWDER BTL TOP SCH ×2 (08:18→21:10)
--- NOTE | 2018-07-14 10:25 | PN ---
Date/Time of Note Date/Time of Note DATE: 07/14/18 TIME: 10:23 Assessment/Plan VTE Prophylaxis Risk score (from Ns)>0 risk: 3 SCD applied (from Ns): Yes Pharmacological prophylaxis: NA/contraindicated Pharm contraindication: anticoag not tolerated Lines/Catheters IV [facility] Saline Lock Urinary Cath still in place: No Assessment/Plan Hospital Course SUBJECTIVE: No acute overnight episodes. OBJECTIVE: Vital signs-see below PHYSICAL EXAM: Constitutional: Well-developed, well-nourished not in acute distress. HEENT: Head atraumatic and normocephalic. Eyes: Extraocular muscles intact. Anicteric sclerae. Pupils equal bilaterally, reactive to light. NECK: Supple without lymph node. CHEST: Clear and good breath sounds equally. No wheezing. No rhonchi. HEART: S1, S2. Regular rate and rhythm. ABDOMEN: Soft with no rebound tenderness. Bowel sounds were present. EXTREMITIES: RLE covered with LUCRETIA wrap/dressing c/d/i. Full range of motion in all the extremities. No cyanosis, clubbing or edema. NEUROLOGIC: Alert and oriented x3. No focal deficit. No sensory deficit. PSYCHOSOCIAL: In a good mood. No signs of depression. INTEGUMENTARY:moist mucous membranes. Good skin turgor, intact. ASSESSMENT AND PLAN:62 yo female who is also homeless/lives in trailer here w/ large right lower leg ulceration of unclear etiology RLE Ulceration/Cellulitis: - s/p operative management by Dr Grullon - Wound vac per surgery - Abx per ID- last dose on July 18 Hypertension: - Losartan Homelessness -She lives in her trailer. She needs wound care/wound VAC for a few more weeks. -Plan is placing in a senior care which is also somewhat difficult secondary to her homelessness/insurance limitation status. DVT prophylaxis. -Left lower extremity SCD. Dc planning:CM following on SNF Placement. Insurance limitation and homelessness is a major barrier in finding senior care. Patient with no family support available to take her back home with home health. PT alyssa. Case discussed with Result Diagram: 07/11/18 0603 07/11/18 0604 Exam/Review of Systems Exam Vitals Vital Signs Date Temp Pulse Resp B/P (MAP) Pulse Ox O2 O2 Flow FiO2 Time Delivery Rate 07/14/18 98.1 70 18 127/67 98 Room Air 08:00 (87) Intake and Output 07/13/18 07/13/18 07/14/18 1515:00 23:00 07:00 IntakeIntake Total 350 ml 350 ml 1200 ml OutputOutput Total 50 ml BalanceBalance 350 ml 300 ml 1200 ml Medications Medication Current Medications IV Flush (NS 3 ml) 3 ml PER PROTOCOL IV ; Start 07/01/18 at 13:00 Ondansetron HCl (Zofran Inj) 4 mg Q6H PRN IV NAUSEA/VOMITING; Start 07/01/18 at 13:00 Acetaminophen (Tylenol Tab) 650 mg Q6H PRN PO .PAIN 1-3 OR TEMP; Start 07/01/18 at 13:00 Acetaminophen/ Hydrocodone Bitart ([place] (5/325)) 1 tab Q6H PRN PO .MOD PAIN 4- 6 Last administered on 07/07/18 21:21; Admin Dose 1 TAB; Start 07/01/18 at 13:00 Morphine Sulfate (morphine) 2 mg Q4H PRN IV .SEVERE PAIN 7-10 Last administered on 07/11/18 15:32; Admin Dose 2 MG; Start 07/01/18 at 13:00 Losartan Potassium (Cozaar) 25 mg DAILY PO Last administered on 07/14/18 08:17; Admin Dose 25 MG; Start 07/01/18 at 13:30 Sodium Hypochlorite (Dakins Diluted (1/40)) 1 applic DAILY TP Last administered on 07/14/18 08:17; Admin Dose 1 APPLIC; Start 07/02/18 at 10:00 Cefepime HCl 50 ml @ 100 mls/hr Q12 IVPB Last administered on 07/14/18 08:17; Admin Dose 100 MLS/HR; Start 07/03/18 at 21:00; Stop 07/17/18 at 20:59 Levofloxacin (Levaquin) 750 mg DAILY@06 PO Last administered on 07/14/18 05:51; Admin Dose 750 MG; Start 07/04/18 at 06:00; Stop 07/25/18 at 05:59 Nystatin (Nystatin Powder) 1 applic BID TOP Last administered on 07/14/18 08:18; Admin Dose 1 APPLIC; Start 07/08/18 at 09:00 Cholecalciferol (Vitamin D) 2,000 unit DAILY PO Last administered on 07/14/18at 08:17; Admin Dose 2,000 UNIT; Start 07/09/18 at 09:00 Multivitamins Therapeutic (Theragran) 1 tab DAILY PO Last administered on 07/14/18 08:17; Admin Dose 1 TAB; Start 07/13/18 at 09:00 Ascorbic Acid (Vitamin C) 500 mg BID PO Last administered on 07/14/18at 08:17; Admin Dose 500 MG; Start 07/13/18 at 09:00 JANELLE DODD NP July 14, 2018 10:25
[2018-07-14] MEDS: BACITRACIN 0.9 GM OINT TOP SCH (14:04)
--- NOTE | 2018-07-14 14:11 | CONS ---
Assessment/Plan Assessment/Plan Hospital Course (Demo Recall) Alert, feels good Antimicrobials: Cefepime, Levaquin Physical examination: Well-nourished well-developed elderly woman who is awake in no distress. Head atraumatic normocephalic sclera nonicteric. Neck is supple. Chest rise symmetrical breath sounds clear. Heart: S1-S2. Abdomen soft bowel sounds present. Extremities with right lower extremity dressing with purulent and bloody drainage Assessment: 1. Right lower extremity cellulitis, chronic wound, s/p debridement 07/04/18 2. Peripheral arterial disease Plan: Remains stable, POD #10, continue abx, last dose on July 18, may change to PO Clinda and Levaquin if IV abx difficult to arrange Consultation Date/Type/Reason Admit Date/Time Jul 01, 2018 at 11:42 Initial Consult Date Type of Consult id Date/Time of Note DATE: 07/14/18 TIME: 14:11 Exam/Review of Systems Exam Vitals Vital Signs Date Temp Pulse Resp B/P (MAP) Pulse Ox O2 O2 Flow FiO2 Time Delivery Rate 07/14/18 98.1 70 18 127/67 98 Room Air 08:00 (87) Intake and Output 07/13/18 07/13/18 07/14/18 1515:00 23:00 07:00 IntakeIntake Total 350 ml 350 ml 1200 ml OutputOutput Total 50 ml BalanceBalance 350 ml 300 ml 1200 ml Results Result Diagram: 07/11/18 0603 07/11/18 0604 Medications Medication Current Medications IV Flush (NS 3 ml) 3 ml PER PROTOCOL IV ; Start 07/01/18 at 13:00 Ondansetron HCl (Zofran Inj) 4 mg Q6H PRN IV NAUSEA/VOMITING; Start 07/01/18 at 13:00 Acetaminophen (Tylenol Tab) 650 mg Q6H PRN PO .PAIN 1-3 OR TEMP; Start 07/01/18 at 13:00 Acetaminophen/ Hydrocodone Bitart ([place] (5/325)) 1 tab Q6H PRN PO .MOD PAIN 4- 6 Last administered on 07/07/18at 21:21; Admin Dose 1 TAB; Start 07/01/18 at 13:00 Morphine Sulfate (morphine) 2 mg Q4H PRN IV .SEVERE PAIN 7-10 Last administered on 07/11/18 15:32; Admin Dose 2 MG; Start 07/01/18 at 13:00 Losartan Potassium (Cozaar) 25 mg DAILY PO Last administered on 07/14/18 08:17; Admin Dose 25 MG; Start 07/01/18 at 13:30 Sodium Hypochlorite (Dakins Diluted ()) 1 applic DAILY TP Last administered on 07/14/18 08:17; Admin Dose 1 APPLIC; Start 07/02/18 at 10:00 Cefepime HCl 50 ml @ 100 mls/hr Q12 IVPB Last administered on 07/14/18 08:17; Admin Dose 100 MLS/HR; Start 07/03/18 at 21:00; Stop 07/17/18 at 20:59 Levofloxacin (Levaquin) 750 mg DAILY@06 PO Last administered on 07/14/18 05:51; Admin Dose 750 MG; Start 07/04/18 at 06:00; Stop 07/25/18 at 05:59 Nystatin (Nystatin Powder) 1 applic BID TOP Last administered on 07/14/18 08:18; Admin Dose 1 APPLIC; Start 07/08/18 at 09:00 Cholecalciferol (Vitamin D) 2,000 unit DAILY PO Last administered on 07/14/18 08:17; Admin Dose 2,000 UNIT; Start 07/09/18 at 09:00 Multivitamins Therapeutic (Theragran) 1 tab DAILY PO Last administered on 07/14/18 08:17; Admin Dose 1 TAB; Start 07/13/18 at 09:00 Ascorbic Acid (Vitamin C) 500 mg BID PO Last administered on 07/14/18 08:17; Admin Dose 500 MG; Start 07/13/18 at 09:00 Bacitracin (Bacitracin Oint (Ud)) 1 applic DAILY TOP Last administered on 07/14/18 14:04; Admin Dose 1 APPLIC; Start 07/14/18 at 14:00 SONALI DE ANDA NP July 14, 2018 14:11
[2018-07-14 14:50] VITALS: BP 124/63; PULSE 83; RESP 18
--- NOTE | 2018-07-14 15:13 | CONS ---
Assessment/Plan Assessment/Plan Assessment/Plan (Daily) Chronic Right lower extremity ulceration mixed etiology RLE cellulitis Venous insufficiency Edema Leukocytosis - resolved Plan Continue with wound VAC dressing changes with wound care nurse. Recommend home VAC use. Intra-op Cx showing staph aureus, pseudomonas, and strep group B. Intra-op pathology pending. Appreciate anbx recommendations per ID. Recommend to elevate and offload right lower extremity with pillows. Per nursing reports of patient scratching her right lower extremity causing an abrasion and recommended to apply triple anbx ointment with sterile bandage. Work disability paper work completed. Consultation Date/Type/Reason Admit Date/Time Jul 01, 2018 at 11:42 Initial Consult Date Date/Time of Note DATE: 07/14/18 TIME: 15:12 24 HR Interval Summary Free Text/Dictation No acute events overnight Exam/Review of Systems Exam Vitals Vital Signs Date Temp Pulse Resp B/P (MAP) Pulse Ox O2 O2 Flow FiO2 Time Delivery Rate 07/14/18 97.9 83 18 124/63 95 Room Air 14:50 (83) Intake and Output 07/13/18 07/13/18 07/14/18 1515:00 23:00 07:00 IntakeIntake Total 350 ml 350 ml 1200 ml OutputOutput Total 50 ml BalanceBalance 350 ml 300 ml 1200 ml Exam Dressings clean dry and intact, no strikethrough, no proximal streaking Wound VAC canister with serosanguinous drainage Operational at 125mmHg low continuous therapy. Results Result Diagram: 07/11/18 0603 07/11/18 0604 Medications Medication Current Medications IV Flush (NS 3 ml) 3 ml PER PROTOCOL IV ; Start 07/01/18 at 13:00 Ondansetron HCl (Zofran Inj) 4 mg Q6H PRN IV NAUSEA/VOMITING; Start 07/01/18 at 13:00 Acetaminophen (Tylenol Tab) 650 mg Q6H PRN PO .PAIN 1-3 OR TEMP; Start 07/01/18 at 13:00 Acetaminophen/ Hydrocodone Bitart ([place] (5/325)) 1 tab Q6H PRN PO .MOD PAIN 4- 6 Last administered on 07/07/18at 21:21; Admin Dose 1 TAB; Start 07/01/18 at 13:00 Morphine Sulfate (morphine) 2 mg Q4H PRN IV .SEVERE PAIN 7-10 Last administered on 07/11/18 15:32; Admin Dose 2 MG; Start 07/01/18 at 13:00 Losartan Potassium (Cozaar) 25 mg DAILY PO Last administered on 07/14/18 08:17; Admin Dose 25 MG; Start 07/01/18 at 13:30 Sodium Hypochlorite (Dakins Diluted ()) 1 applic DAILY TP Last administered on 07/14/18 08:17; Admin Dose 1 APPLIC; Start 07/02/18 at 10:00 Cefepime HCl 50 ml @ 100 mls/hr Q12 IVPB Last administered on 07/14/18 08:17; Admin Dose 100 MLS/HR; Start 07/03/18 at 21:00; Stop 07/17/18 at 20:59 Levofloxacin (Levaquin) 750 mg DAILY@06 PO Last administered on 07/14/18 05:51; Admin Dose 750 MG; Start 07/04/18 at 06:00; Stop 07/25/18 at 05:59 Nystatin (Nystatin Powder) 1 applic BID TOP Last administered on 07/14/18 08:18; Admin Dose 1 APPLIC; Start 07/08/18 at 09:00 Cholecalciferol (Vitamin D) 2,000 unit DAILY PO Last administered on 07/14/18 08:17; Admin Dose 2,000 UNIT; Start 07/09/18 at 09:00 Multivitamins Therapeutic (Theragran) 1 tab DAILY PO Last administered on 07/14/18 08:17; Admin Dose 1 TAB; Start 07/13/18 at 09:00 Ascorbic Acid (Vitamin C) 500 mg BID PO Last administered on 07/14/18 08:17; Admin Dose 500 MG; Start 07/13/18 at 09:00 Bacitracin (Bacitracin Oint (Ud)) 1 applic DAILY TOP Last administered on 07/14/18 14:04; Admin Dose 1 APPLIC; Start 07/14/18 at 14:00 KELY PATE DPM July 14, 2018 15:12
[2018-07-14 20:15] VITALS: BP 128/72; PULSE 51; RESP 18
[2018-07-15 02:10] VITALS: BP 112/57; PULSE 79; RESP 18
[2018-07-15] MEDS: LEVOFLOXACIN 750 MG TABLET PO SCH (06:19)
[2018-07-15 07:40] VITALS: BP 112/56; PULSE 62; RESP 16
[2018-07-15] MEDS: CHOLECALCIFEROL 2,000 UNIT CAP PO SCH (08:51)
[2018-07-15] MEDS: BACITRACIN 0.9 GM OINT TOP SCH (08:51)
[2018-07-15] MEDS: ASCORBIC ACID 500 MG TAB PO SCH ×2 (08:51→20:57)
[2018-07-15] MEDS: MULTIVITAMINS THERAPEUTIC TAB PO SCH (08:51)
[2018-07-15] MEDS: LOSARTAN 25 MG TAB PO SCH (08:51)
[2018-07-15] MEDS: CEFEPIME 1GM/50 ML (PMX) 50 ML IVPB SCH ×2 (08:51→20:57)
[2018-07-15] MEDS: NYSTATIN 30 GM POWDER BTL TOP SCH ×2 (08:52→20:58)
[2018-07-15] MEDS: DAKINS 0.0125%(1/40) 473 ML SOLUTION TP SCH (08:53)
--- NOTE | 2018-07-15 10:25 | PN ---
Date/Time of Note Date/Time of Note DATE: 07/15/18 TIME: 10:22 Assessment/Plan VTE Prophylaxis Risk score (from Ns)>0 risk: 3 SCD applied (from Ns): Yes Pharmacological prophylaxis: heparin Lines/Catheters IV Catheter Type (from Nrsg): Saline Lock Urinary Cath still in place: No Assessment/Plan Problems: (1) Vitamin D deficiency Status: Chronic Comment: Continue to replace (2) Peripheral vascular disease Status: Chronic Comment: Stable at this time (3) Essential hypertension Status: Chronic Comment: Adequate control (4) Open leg wound Status: Acute Comment: Continue with wound VAC as per podiatry. Please note this is going to be a little bit of a tricky placement issue due to her home situation. Finishes antibiotics on the seventh Qualifiers: Encounter type: initial encounter Laterality: right Qualified Codes: S81.801A - Unspecified open wound, right lower leg, initial encounter Result Diagram: 07/11/18 0603 07/11/18 0604 Subjective 24 Hr Interval Summary Free Text/Dictation Patient reports that she is feeling better although she still has some pain but it is less Constitutional: no complaints Respiratory: no complaints Cardiovascular: no complaints Gastrointestinal: no complaints Exam/Review of Systems Exam Vitals Vital Signs Date Temp Pulse Resp B/P (MAP) Pulse Ox O2 O2 Flow FiO2 Time Delivery Rate 07/15/18 98.5 62 16 112/56 97 Room Air 07:40 (74) Intake and Output 07/14/18 07/14/18 07/15/18 1515:00 23:00 07:00 IntakeIntake Total 170 ml 1330 ml 960 ml OutputOutput Total 25 ml 25 ml BalanceBalance 170 ml 1305 ml 935 ml Constitutional: alert, oriented Respiratory: clear to auscultation, normal air movement Cardiovascular: regular rate and rhythm, nl pulses Gastrointestinal: soft, nl liver, spleen, non-tender Medications Medication Current Medications IV Flush (NS 3 ml) 3 ml PER PROTOCOL IV ; Start 07/01/18 at 13:00 Ondansetron HCl (Zofran Inj) 4 mg Q6H PRN IV NAUSEA/VOMITING; Start 07/01/18 at 13:00 Acetaminophen (Tylenol Tab) 650 mg Q6H PRN PO .PAIN 1-3 OR TEMP; Start 07/01/18 at 13:00 Acetaminophen/ Hydrocodone Bitart ([place] (5/325)) 1 tab Q6H PRN PO .MOD PAIN 4- 6 Last administered on 07/07/18 21:21; Admin Dose 1 TAB; Start 07/01/18 at 13:00 Morphine Sulfate (morphine) 2 mg Q4H PRN IV .SEVERE PAIN 7-10 Last administered on 07/11/18 15:32; Admin Dose 2 MG; Start 07/01/18 at 13:00 Losartan Potassium (Cozaar) 25 mg DAILY PO Last administered on 07/15/18 08:51; Admin Dose 25 MG; Start 07/01/18 at 13:30 Sodium Hypochlorite (Dakins Diluted ()) 1 applic DAILY TP Last administered on 07/14/18 08:17; Admin Dose 1 APPLIC; Start 07/02/18 at 10:00 Cefepime HCl 50 ml @ 100 mls/hr Q12 IVPB Last administered on 07/15/18 08:51; Admin Dose 100 MLS/HR; Start 07/03/18 at 21:00; Stop 07/17/18 at 20:59 Levofloxacin (Levaquin) 750 mg DAILY@06 PO Last administered on 07/15/18 06:19; Admin Dose 750 MG; Start 07/04/18 at 06:00; Stop 07/25/18 at 05:59 Nystatin (Nystatin Powder) 1 applic BID TOP Last administered on 07/15/18 08:52; Admin Dose 1 APPLIC; Start 07/08/18 at 09:00 Cholecalciferol (Vitamin D) 2,000 unit DAILY PO Last administered on 07/15/18 08:51; Admin Dose 2,000 UNIT; Start 07/09/18 at 09:00 Multivitamins Therapeutic (Theragran) 1 tab DAILY PO Last administered on 07/15/18 08:51; Admin Dose 1 TAB; Start 07/13/18 at 09:00 Ascorbic Acid (Vitamin C) 500 mg BID PO Last administered on 07/15/18 08:51; Admin Dose 500 MG; Start 07/13/18 at 09:00 Bacitracin (Bacitracin Oint (Ud)) 1 applic DAILY TOP Last administered on 07/15/18 08:51; Admin Dose 1 APPLIC; Start 07/14/18 at 14:00 LEIGHANN ENRIQUEZ MD July 15, 2018 10:25
--- NOTE | 2018-07-15 11:22 | CONS ---
Consultation Date/Type/Reason Admit Date/Time Jul 01, 2018 at 11:42 Initial Consult Date Type of Consult SUBJECTIVE: Pt is awake, alert, afebrile. VS: stable T: 98.5 LABS: Reviewed. Antimicrobials: Cefepime, Levaquin Physical examination: GEN: Well-nourished well-developed elderly woman, who is awake in no distress. HENT: Head atraumatic normocephalic; sclera nonicteric. Neck is supple. PULM: Chest rise symmetrical breath sounds clear. Heart: S1-S2. Abdomen soft bowel sounds present. Extremities with right lower extremity dressing with purulent and bloody drainage Assessment: 1. Right lower extremity cellulitis, chronic wound, s/p debridement 07/04/18 2. Peripheral arterial disease Plan: Pt is stable. Continue current abx, until July 18. May change to PO Clinda and Levaquin if IV abx difficult to arrange. Pending SNF placement. Date/Time of Note DATE: 07/15/18 TIME: 11:18 Exam/Review of Systems Exam Vitals Vital Signs Date Temp Pulse Resp B/P (MAP) Pulse Ox O2 O2 Flow FiO2 Time Delivery Rate 07/15/18 98.5 62 16 112/56 97 Room Air 07:40 (74) Intake and Output 07/14/18 07/14/18 07/15/18 1515:00 23:00 07:00 IntakeIntake Total 170 ml 1330 ml 960 ml OutputOutput Total 25 ml 25 ml BalanceBalance 170 ml 1305 ml 935 ml Results Result Diagram: 07/11/18 0603 07/11/18 0604 Medications Medication Current Medications IV Flush (NS 3 ml) 3 ml PER PROTOCOL IV ; Start 07/01/18 at 13:00 Ondansetron HCl (Zofran Inj) 4 mg Q6H PRN IV NAUSEA/VOMITING; Start 07/01/18 at 13:00 Acetaminophen (Tylenol Tab) 650 mg Q6H PRN PO .PAIN 1-3 OR TEMP; Start 07/01/18 at 13:00 Acetaminophen/ Hydrocodone Bitart ([place] (5/325)) 1 tab Q6H PRN PO .MOD PAIN 4- 6 Last administered on 07/07/18at 21:21; Admin Dose 1 TAB; Start 07/01/18 at 13:00 Morphine Sulfate (morphine) 2 mg Q4H PRN IV .SEVERE PAIN 7-10 Last administered on 07/11/18 15:32; Admin Dose 2 MG; Start 07/01/18 at 13:00 Losartan Potassium (Cozaar) 25 mg DAILY PO Last administered on 07/15/18 08:51; Admin Dose 25 MG; Start 07/01/18 at 13:30 Sodium Hypochlorite (Dakins Diluted ()) 1 applic DAILY TP Last administered on 07/14/18 08:17; Admin Dose 1 APPLIC; Start 07/02/18 at 10:00 Cefepime HCl 50 ml @ 100 mls/hr Q12 IVPB Last administered on 07/15/18 0851; Admin Dose 100 MLS/HR; Start 07/03/18 at 21:00; Stop 07/17/18 at 20:59 Levofloxacin (Levaquin) 750 mg DAILY@06 PO Last administered on 07/15/18 06:19; Admin Dose 750 MG; Start 07/04/18 at 06:00; Stop 07/25/18 at 05:59 Nystatin (Nystatin Powder) 1 applic BID TOP Last administered on 07/15/18 08:52; Admin Dose 1 APPLIC; Start 07/08/18 at 09:00 Cholecalciferol (Vitamin D) 2,000 unit DAILY PO Last administered on 07/15/18 08:51; Admin Dose 2,000 UNIT; Start 07/09/18 at 09:00 Multivitamins Therapeutic (Theragran) 1 tab DAILY PO Last administered on 07/15/18 08:51; Admin Dose 1 TAB; Start 07/13/18 at 09:00 Ascorbic Acid (Vitamin C) 500 mg BID PO Last administered on 07/15/18 08:51; Admin Dose 500 MG; Start 07/13/18 at 09:00 Bacitracin (Bacitracin Oint (Ud)) 1 applic DAILY TOP Last administered on 07/15/18 08:51; Admin Dose 1 APPLIC; Start 07/14/18 at 14:00 Ergocalciferol (Drisdol Liquid (Ped)) 50,000 units ONCE ONCE PO ; Start 07/15/18 at 11:30; Stop 07/15/18 at 11:31 BILLIE FAULKNER July 15, 2018 11:22
[2018-07-15] MEDS ORDERED: ERGOCALCIFEROL (8000 UNITS/ML PO SYG) PO ONE (11:30)
[2018-07-15 14:00] VITALS: BP 99/57; PULSE 79; RESP 17
[2018-07-15 20:00] VITALS: BP 111/68; PULSE 71; RESP 18
[2018-07-16 02:00] VITALS: BP 109/57; PULSE 65; RESP 18
[2018-07-16] MEDS: LEVOFLOXACIN 750 MG TABLET PO SCH (06:10)
[2018-07-16 08:12] VITALS: BP 121/62; PULSE 74
[2018-07-16] MEDS: CEFEPIME 1GM/50 ML (PMX) 50 ML IVPB SCH ×2 (09:08→20:35)
[2018-07-16] MEDS: CHOLECALCIFEROL 2,000 UNIT CAP PO SCH (09:08)
[2018-07-16] MEDS: BACITRACIN 0.9 GM OINT TOP SCH (09:08)
[2018-07-16] MEDS: MULTIVITAMINS THERAPEUTIC TAB PO SCH (09:08)
[2018-07-16] MEDS: NYSTATIN 30 GM POWDER BTL TOP SCH ×2 (09:09→20:35)
[2018-07-16] MEDS: LOSARTAN 25 MG TAB PO SCH (09:09)
[2018-07-16] MEDS: ASCORBIC ACID 500 MG TAB PO SCH ×2 (09:09→20:35)
[2018-07-16] MEDS: DAKINS 0.0125%(1/40) 473 ML SOLUTION TP SCH (09:10)
--- NOTE | 2018-07-16 10:36 | PN ---
Date/Time of Note Date/Time of Note DATE: 07/16/18 TIME: 10:34 Assessment/Plan VTE Prophylaxis Risk score (from Ns)>0 risk: 4 SCD applied (from Ns): Yes Pharmacological prophylaxis: heparin Lines/Catheters IV Catheter Type (from Nrsg): Saline Lock Urinary Cath still in place: No Assessment/Plan Problems: (1) Open leg wound Status: Acute Comment: Finishing antibiotics in the next 72 hours. Appreciate input from ID about the possibility of all adjustment of antibiotics if we can get IV access. Main issue here actually will be the wound VAC for discharge planning Qualifiers: Encounter type: initial encounter Laterality: right Qualified Codes: S81.801A - Unspecified open wound, right lower leg, initial encounter (2) Vitamin D deficiency Status: Chronic Comment: Being replaced (3) Essential hypertension Status: Chronic Comment: Good control Subjective 24 Hr Interval Summary Free Text/Dictation Patient is resting in bed. Reports she is doing well. Constitutional: no complaints (No fevers chills or sweats) Respiratory: no complaints Cardiovascular: no complaints Exam/Review of Systems Exam Vitals Vital Signs Date Temp Pulse Resp B/P (MAP) Pulse Ox O2 O2 Flow FiO2 Time Delivery Rate 07/16/18 98.6 74 121/62 98 Room Air 08:12 (81) 07/16/18 18 02:00 Intake and Output 07/15/18 07/15/18 07/16/18 1414:59 22:59 06:59 IntakeIntake Total 1140 ml 550 ml OutputOutput Total 0 ml 0 ml BalanceBalance 1140 ml 550 ml 0 ml Constitutional: alert, oriented Respiratory: clear to auscultation, normal air movement Cardiovascular: regular rate and rhythm, nl pulses Extremities: other (No change) Medications Medication Current Medications IV Flush (NS 3 ml) 3 ml PER PROTOCOL IV ; Start 07/01/18 at 13:00 Ondansetron HCl (Zofran Inj) 4 mg Q6H PRN IV NAUSEA/VOMITING; Start 07/01/18 at 13:00 Acetaminophen (Tylenol Tab) 650 mg Q6H PRN PO .PAIN 1-3 OR TEMP; Start 07/01/18 at 13:00 Acetaminophen/ Hydrocodone Bitart ([place] (5/325)) 1 tab Q6H PRN PO .MOD PAIN 4- 6 Last administered on 07/07/18 21:21; Admin Dose 1 TAB; Start 07/01/18 at 13:00 Morphine Sulfate (morphine) 2 mg Q4H PRN IV .SEVERE PAIN 7-10 Last administered on 07/11/18 15:32; Admin Dose 2 MG; Start 07/01/18 at 13:00 Losartan Potassium (Cozaar) 25 mg DAILY PO Last administered on 07/16/18 09:09; Admin Dose 25 MG; Start 07/01/18 at 13:30 Sodium Hypochlorite (Dakins Diluted ()) 1 applic DAILY TP Last administered on 07/16/18 09:10; Admin Dose 1 APPLIC; Start 07/02/18 at 10:00 Cefepime HCl 50 ml @ 100 mls/hr Q12 IVPB Last administered on 07/16/18 09:08; Admin Dose 100 MLS/HR; Start 07/03/18 at 21:00; Stop 07/17/18 at 20:59 Levofloxacin (Levaquin) 750 mg DAILY@06 PO Last administered on 07/16/18 06:10; Admin Dose 750 MG; Start 07/04/18 at 06:00; Stop 07/25/18 at 05:59 Nystatin (Nystatin Powder) 1 applic BID TOP Last administered on 07/16/18 09:09; Admin Dose 1 APPLIC; Start 07/08/18 at 09:00 Cholecalciferol (Vitamin D) 2,000 unit DAILY PO Last administered on 07/16/18 09:08; Admin Dose 2,000 UNIT; Start 07/09/18 at 09:00 Multivitamins Therapeutic (Theragran) 1 tab DAILY PO Last administered on 07/16/18 09:08; Admin Dose 1 TAB; Start 07/13/18 at 09:00 Ascorbic Acid (Vitamin C) 500 mg BID PO Last administered on 07/16/18 09:09; Admin Dose 500 MG; Start 07/13/18 at 09:00 Bacitracin (Bacitracin Oint (Ud)) 1 applic DAILY TOP Last administered on 07/16/18 09:08; Admin Dose 1 APPLIC; Start 07/14/18 at 14:00 LEIGHANN ENRIQUEZ MD July 16, 2018 10:36
--- NOTE | 2018-07-16 12:01 | CONS ---
Consultation Date/Type/Reason Admit Date/Time Jul 01, 2018 at 11:42 Initial Consult Date Type of Consult SUBJECTIVE: Pt is awake, alert, afebrile. No acute events over night. VS: stable T: 98.6 LABS: Reviewed. Antimicrobials: Cefepime, Levaquin Physical examination: GEN: Well-nourished well-developed elderly woman, who is awake in no distress. HENT: Head atraumatic normocephalic; sclera nonicteric. Neck is supple. PULM: Chest rise symmetrical breath sounds clear. Heart: S1-S2. Abdomen soft bowel sounds present. Extremities with right lower extremity dressing with purulent and bloody drainage Assessment: 1. Right lower extremity cellulitis, chronic wound, s/p debridement 07/04/18 2. Peripheral arterial disease Plan: Pt is stable. Continue current abx, until July 18. May change to PO Clinda and Levaquin if IV abx difficult to arrange. Pending SNF placement. Date/Time of Note DATE: 07/16/18 TIME: 12:00 Exam/Review of Systems Exam Vitals Vital Signs Date Temp Pulse Resp B/P (MAP) Pulse Ox O2 O2 Flow FiO2 Time Delivery Rate 07/16/18 98.6 74 121/62 98 Room Air 08:12 (81) 07/16/18 18 02:00 Intake and Output 07/15/18 07/15/18 07/16/18 1515:00 23:00 07:00 IntakeIntake Total 1140 ml 550 ml OutputOutput Total 0 ml 0 ml BalanceBalance 1140 ml 550 ml 0 ml Medications Medication Current Medications IV Flush (NS 3 ml) 3 ml PER PROTOCOL IV ; Start 07/01/18 at 13:00 Ondansetron HCl (Zofran Inj) 4 mg Q6H PRN IV NAUSEA/VOMITING; Start 07/01/18 at 13:00 Acetaminophen (Tylenol Tab) 650 mg Q6H PRN PO .PAIN 1-3 OR TEMP; Start 07/01/18 at 13:00 Acetaminophen/ Hydrocodone Bitart ([place] (5/325)) 1 tab Q6H PRN PO .MOD PAIN 4- 6 Last administered on 07/07/18at 21:21; Admin Dose 1 TAB; Start 07/01/18 at 13:00 Morphine Sulfate (morphine) 2 mg Q4H PRN IV .SEVERE PAIN 7-10 Last administered on 07/11/18 15:32; Admin Dose 2 MG; Start 07/01/18 at 13:00 Losartan Potassium (Cozaar) 25 mg DAILY PO Last administered on 07/16/18 09:09; Admin Dose 25 MG; Start 07/01/18 at 13:30 Sodium Hypochlorite (Dakins Diluted ()) 1 applic DAILY TP Last administered on 07/16/18 09:10; Admin Dose 1 APPLIC; Start 07/02/18 at 10:00 Cefepime HCl 50 ml @ 100 mls/hr Q12 IVPB Last administered on 07/16/18 09:08; Admin Dose 100 MLS/HR; Start 07/03/18 at 21:00; Stop 07/17/18 at 20:59 Levofloxacin (Levaquin) 750 mg DAILY@06 PO Last administered on 07/16/18 06:10; Admin Dose 750 MG; Start 07/04/18 at 06:00; Stop 07/25/18 at 05:59 Nystatin (Nystatin Powder) 1 applic BID TOP Last administered on 07/16/18 09:09; Admin Dose 1 APPLIC; Start 07/08/18 at 09:00 Cholecalciferol (Vitamin D) 2,000 unit DAILY PO Last administered on 07/16/18 09:08; Admin Dose 2,000 UNIT; Start 07/09/18 at 09:00 Multivitamins Therapeutic (Theragran) 1 tab DAILY PO Last administered on 07/16/18 09:08; Admin Dose 1 TAB; Start 07/13/18 at 09:00 Ascorbic Acid (Vitamin C) 500 mg BID PO Last administered on 07/16/18 09:09; Admin Dose 500 MG; Start 07/13/18 at 09:00 Bacitracin (Bacitracin Oint (Ud)) 1 applic DAILY TOP Last administered on 07/16/18 09:08; Admin Dose 1 APPLIC; Start 07/14/18 at 14:00 BILLIE FAULKNER July 16, 2018 12:01
[2018-07-16 14:32] VITALS: BP 120/59; PULSE 91; RESP 17
[2018-07-16 20:00] VITALS: BP 103/71; PULSE 100; RESP 18
[2018-07-17 02:00] VITALS: BP 99/53; PULSE 76; RESP 18
[2018-07-17] MEDS: LEVOFLOXACIN 750 MG TABLET PO SCH (05:18)
[2018-07-17 07:53] VITALS: BP 104/60; PULSE 75; RESP 17
[2018-07-17] MEDS: CHOLECALCIFEROL 2,000 UNIT CAP PO SCH (08:37)
[2018-07-17] MEDS: CEFEPIME 1GM/50 ML (PMX) 50 ML IVPB SCH (08:37)
[2018-07-17] MEDS: LOSARTAN 25 MG TAB PO SCH (08:38)
[2018-07-17] MEDS: ASCORBIC ACID 500 MG TAB PO SCH ×2 (08:38→21:00)
[2018-07-17] MEDS: NYSTATIN 30 GM POWDER BTL TOP SCH ×2 (08:39→21:00)
[2018-07-17] MEDS: MULTIVITAMINS THERAPEUTIC TAB PO SCH (08:39)
[2018-07-17] MEDS: DAKINS 0.0125%(1/40) 473 ML SOLUTION TP SCH (08:40)
[2018-07-17] MEDS: BACITRACIN 0.9 GM OINT TOP SCH (08:49)
--- NOTE | 2018-07-17 13:20 | CONS ---
Assessment/Plan Assessment/Plan Hospital Course (Demo Recall) Alert, feels good Antimicrobials: Cefepime, Levaquin Physical examination: Well-nourished well-developed elderly woman who is awake in no distress. Head atraumatic normocephalic sclera nonicteric. Neck is supple. Chest rise symmetrical breath sounds clear. Heart: S1-S2. Abdomen soft bowel sounds present. Extremities with right lower extremity dressing with purulent and bloody drainage Assessment: 1. Right lower extremity cellulitis, chronic wound, s/p debridement 07/04/18 2. Peripheral arterial disease Plan: Remains stable, completing antibiotics, last dose tomorrow Consultation Date/Type/Reason Admit Date/Time Jul 01, 2018 at 11:42 Initial Consult Date Type of Consult id Date/Time of Note DATE: 07/17/18 TIME: 13:19 Exam/Review of Systems Exam Vitals Vital Signs Date Temp Pulse Resp B/P (MAP) Pulse Ox O2 O2 Flow FiO2 Time Delivery Rate 07/17/18 98.1 75 17 104/60 95 Room Air 07:53 (75) Intake and Output 07/16/18 07/16/18 07/17/18 1515:00 23:00 07:00 IntakeIntake Total 250 ml 600 ml OutputOutput Total 0 ml 10 ml BalanceBalance 250 ml 0 ml 590 ml Medications Medication Current Medications IV Flush (NS 3 ml) 3 ml PER PROTOCOL IV ; Start 07/01/18 at 13:00 Ondansetron HCl (Zofran Inj) 4 mg Q6H PRN IV NAUSEA/VOMITING; Start 07/01/18 at 13:00 Acetaminophen (Tylenol Tab) 650 mg Q6H PRN PO .PAIN 1-3 OR TEMP; Start 07/01/18 at 13:00 Acetaminophen/ Hydrocodone Bitart ([place] (5/325)) 1 tab Q6H PRN PO .MOD PAIN 4- 6 Last administered on 07/07/18at 21:21; Admin Dose 1 TAB; Start 07/01/18 at 13:00 Morphine Sulfate (morphine) 2 mg Q4H PRN IV .SEVERE PAIN 7-10 Last administered on 07/11/18at 15:32; Admin Dose 2 MG; Start 07/01/18 at 13:00 Losartan Potassium (Cozaar) 25 mg DAILY PO Last administered on 5/6/19at 08:38; Admin Dose 25 MG; Start 07/01/18 at 13:30 Sodium Hypochlorite (Dakins Diluted ()) 1 applic DAILY TP Last administered on 07/17/18 08:40; Admin Dose 1 APPLIC; Start 07/02/18 at 10:00 Cefepime HCl 50 ml @ 100 mls/hr Q12 IVPB Last administered on 07/17/18 08:37; Admin Dose 100 MLS/HR; Start 07/03/18 at 21:00; Stop 07/17/18 at 20:59 Levofloxacin (Levaquin) 750 mg DAILY@06 PO Last administered on 07/17/18 05:18; Admin Dose 750 MG; Start 07/04/18 at 06:00; Stop 07/25/18 at 05:59 Nystatin (Nystatin Powder) 1 applic BID TOP Last administered on 07/17/18 08:39; Admin Dose 1 APPLIC; Start 07/08/18 at 09:00 Cholecalciferol (Vitamin D) 2,000 unit DAILY PO Last administered on 07/17/18 08:37; Admin Dose 2,000 UNIT; Start 07/09/18 at 09:00 Multivitamins Therapeutic (Theragran) 1 tab DAILY PO Last administered on 07/17/18 08:39; Admin Dose 1 TAB; Start 07/13/18 at 09:00 Ascorbic Acid (Vitamin C) 500 mg BID PO Last administered on 07/17/18 08:38; Admin Dose 500 MG; Start 07/13/18 at 09:00 Bacitracin (Bacitracin Oint (Ud)) 1 applic DAILY TOP Last administered on 07/17/18 08:49; Admin Dose 1 APPLIC; Start 07/14/18 at 14:00 SONALI DE ANDA NP July 17, 2018 13:20
[2018-07-17 14:00] VITALS: BP 109/56; PULSE 87; RESP 17
--- NOTE | 2018-07-17 15:20 | PN ---
Date/Time of Note Date/Time of Note DATE: 07/17/18 TIME: 15:19 Assessment/Plan VTE Prophylaxis Risk score (from Nsg)>0 risk: 4 SCD applied (from Nsg): Yes Pharmacological prophylaxis: heparin Lines/Catheters IV Catheter Type (from Nrs): Saline Lock Urinary Cath still in place: No Assessment/Plan Hospital Course SUBJECTIVE: No acute overnight episodes. OBJECTIVE: Vital signs-see below PHYSICAL EXAM: Constitutional: Well-developed, well-nourished not in acute distress. HEENT: Head atraumatic and normocephalic. Eyes: Extraocular muscles intact. A nicteric sclerae. Pupils equal bilaterally, reactive to light. NECK: Supple without lymph node. CHEST: Clear and good breath sounds equally. No wheezing. No rhonchi. HEART: S1, S2. Regular rate and rhythm. ABDOMEN: Soft with no rebound tenderness. Bowel sounds were present. EXTREMITIES: RLE covered with LUCRETIA wrap/dressing c/d/i. Full range of motion in all the extremities. No cyanosis, clubbing or edema. NEUROLOGIC: Alert and oriented x3. No focal deficit. No sensory deficit. PSYCHOSOCIAL: In a good mood. No signs of depression. INTEGUMENTARY:moist mucous membranes. Good skin turgor, intact. ASSESSMENT AND PLAN:62 yo female who is also homeless/lives in trailer here w/ large right lower leg ulceration of unclear etiology RLE Ulceration/Cellulitis: - s/p operative management by Dr Grullon - Wound vac per surgery - Abx per ID- last dose on July 18 Hypertension: - Losartan Homelessness -She lives in her trailer. She needs wound care/wound VAC for a few more weeks. -Plan is placing in a intermediate which is also somewhat difficult secondary to her homelessness/insurance limitation status. DVT prophylaxis. -Left lower extremity SCD. Dc planning:CM following on SNF Placement. Insurance limitation and homelessness is a major barrier in finding intermediate. Patient with no family support available to take her back home with home health. PT eval. Exam/Review of Systems Exam Vitals Vital Signs Date Temp Pulse Resp B/P (MAP) Pulse Ox O2 O2 Flow FiO2 Time Delivery Rate 07/17/18 98.1 75 17 104/60 95 Room Air 07:53 (75) Intake and Output 07/16/18 07/16/18 07/17/18 1515:00 23:00 07:00 IntakeIntake Total 250 ml 600 ml OutputOutput Total 0 ml 10 ml BalanceBalance 250 ml 0 ml 590 ml Medications Medication Current Medications IV Flush (NS 3 ml) 3 ml PER PROTOCOL IV ; Start 07/01/18 at 13:00 Ondansetron HCl (Zofran Inj) 4 mg Q6H PRN IV NAUSEA/VOMITING; Start 07/01/18 at 13:00 Acetaminophen (Tylenol Tab) 650 mg Q6H PRN PO .PAIN 1-3 OR TEMP; Start 07/01/18 at 13:00 Acetaminophen/ Hydrocodone Bitart ([place] (5/325)) 1 tab Q6H PRN PO .MOD PAIN 4- 6 Last administered on 07/07/18 21:21; Admin Dose 1 TAB; Start 07/01/18 at 13:00 Morphine Sulfate (morphine) 2 mg Q4H PRN IV .SEVERE PAIN 7-10 Last administered on 07/11/18 15:32; Admin Dose 2 MG; Start 07/01/18 at 13:00 Losartan Potassium (Cozaar) 25 mg DAILY PO Last administered on 07/17/18 08:38; Admin Dose 25 MG; Start 07/01/18 at 13:30 Sodium Hypochlorite (Dakins Diluted ()) 1 applic DAILY TP Last administered on 07/17/18 08:40; Admin Dose 1 APPLIC; Start 07/02/18 at 10:00 Cefepime HCl 50 ml @ 100 mls/hr Q12 IVPB Last administered on 07/17/18 08:37; Admin Dose 100 MLS/HR; Start 07/03/18 at 21:00; Stop 07/17/18 at 20:59 Levofloxacin (Levaquin) 750 mg DAILY@06 PO Last administered on 07/17/18 05:18; Admin Dose 750 MG; Start 07/04/18 at 06:00; Stop 07/25/18 at 05:59 Nystatin (Nystatin Powder) 1 applic BID TOP Last administered on 07/17/18 08:39; Admin Dose 1 APPLIC; Start 07/08/18 at 09:00 Cholecalciferol (Vitamin D) 2,000 unit DAILY PO Last administered on 07/17/18 08:37; Admin Dose 2,000 UNIT; Start 07/09/18 at 09:00 Multivitamins Therapeutic (Theragran) 1 tab DAILY PO Last administered on 07/17/18 08:39; Admin Dose 1 TAB; Start 07/13/18 at 09:00 Ascorbic Acid (Vitamin C) 500 mg BID PO Last administered on 07/17/18 08:38; Admin Dose 500 MG; Start 07/13/18 at 09:00 Bacitracin (Bacitracin Oint (Ud)) 1 applic DAILY TOP Last administered on 07/17/18at 08:49; Admin Dose 1 APPLIC; Start 07/14/18 at 14:00 VENU BOYD July 17, 2018 15:20
[2018-07-17 20:52] VITALS: BP 96/55; PULSE 80; RESP 16
[2018-07-17] MEDS: HEPARIN 5,000 UNIT/1 ML VIAL SC SCH (21:05)
[2018-07-18 02:00] VITALS: BP 98/59; PULSE 76; RESP 14
[2018-07-18 04:01] VITALS: BP 107/54; PULSE 73; RESP 16
[2018-07-18] MEDS: LEVOFLOXACIN 750 MG TABLET PO SCH (05:57)
[2018-07-18 07:52] VITALS: BP 106/57; PULSE 77; RESP 16
[2018-07-18] MEDS: MULTIVITAMINS THERAPEUTIC TAB PO SCH (09:54)
[2018-07-18] MEDS: LOSARTAN 25 MG TAB PO SCH (09:55)
[2018-07-18] MEDS: ASCORBIC ACID 500 MG TAB PO SCH ×2 (09:55→20:32)
[2018-07-18] MEDS: CHOLECALCIFEROL 2,000 UNIT CAP PO SCH (09:56)
[2018-07-18] MEDS: BACITRACIN 0.9 GM OINT TOP SCH (09:56)
--- NOTE | 2018-07-18 09:57 | PN ---
Date/Time of Note Date/Time of Note DATE: 07/18/18 TIME: 09:57 Assessment/Plan VTE Prophylaxis Risk score (from Nsg)>0 risk: 4 SCD applied (from Nsg): Yes Pharmacological prophylaxis: heparin Lines/Catheters IV Catheter Type (from Nrs): Saline Lock Urinary Cath still in place: No Assessment/Plan Hospital Course SUBJECTIVE: No acute overnight episodes. OBJECTIVE: Vital signs-see below PHYSICAL EXAM: Constitutional: Well-developed, well-nourished not in acute distress. HEENT: Head atraumatic and normocephalic. Eyes: Extraocular muscles intact. Anicteric sclerae. Pupils equal bilaterally, reactive to light. NECK: Supple without lymph node. CHEST: Clear and good breath sounds equally. No wheezing. No rhonchi. HEART: S1, S2. Regular rate and rhythm. ABDOMEN: Soft with no rebound tenderness. Bowel sounds were present. EXTREMITIES: RLE covered with LUCRETIA wrap/dressing c/d/i. Full range of motion in all the extremities. No cyanosis, clubbing or edema. NEUROLOGIC: Alert and oriented x3. No focal deficit. No sensory deficit. PSYCHOSOCIAL: In a good mood. No signs of depression. INTEGUMENTARY:moist mucous membranes. Good skin turgor, intact. ASSESSMENT AND PLAN:62 yo female who is also homeless/lives in trailer here w/ large right lower leg ulceration of unclear etiology RLE Ulceration/Cellulitis: - s/p operative management by Dr Grullon - Wound vac per surgery - Abx per ID- last dose on July 18 Hypertension: - Losartan Homelessness -She lives in her trailer. She needs wound care/wound VAC for a few more weeks. -Plan is placing in a fpc which is also somewhat difficult secondary to her homelessness/insurance limitation status. DVT prophylaxis. -Left lower extremity SCD. Dc planning:CM following on SNF Placement. Insurance limitation and home lessness is a major barrier in finding fpc. Patient with no family support available to take her back home with home health. PT eval. Result Diagram: 07/18/18 0646 07/18/18 0646 Results 24hrs Laboratory Tests Test 07/18/18 06:46 White Blood Count 7.4 Red Blood Count 4.93 Hemoglobin 14.0 Hematocrit 43.4 Mean Corpuscular Volume 88.0 Mean Corpuscular Hemoglobin 28.4 L Mean Corpuscular Hemoglobin Concent 32.3 Red Cell Distribution Width 12.9 Platelet Count 306 # Mean Platelet Volume 9.5 Immature Granulocytes % 0.700 H Neutrophils % 34.8 L Lymphocytes % 45.9 Monocytes % 8.8 Eosinophils % 7.5 H Basophils % 2.3 H Nucleated Red Blood Cells % 0.0 Immature Granulocytes # 0.050 H Neutrophils # 2.6 Lymphocytes # 3.4 H Monocytes # 0.7 Eosinophils # 0.6 H Basophils # 0.2 H Nucleated Red Blood Cells # 0.0 Sodium Level 142 Potassium Level 4.2 Chloride Level 105 Carbon Dioxide Level 30 Anion Gap 7 Blood Urea Nitrogen 23 H Creatinine 0.53 Est Glomerular Filtrat Rate mL/min > 60 Glucose Level 86 Calcium Level 9.5 Magnesium Level 1.9 Exam/Review of Systems Exam Vitals Vital Signs Date Temp Pulse Resp B/P (MAP) Pulse Ox O2 O2 Flow FiO2 Time Delivery Rate 07/18/18 98.0 77 16 106/57 95 07:52 (73) 07/18/18 Room Air 02:00 Intake and Output 07/17/18 07/17/18 07/18/18 1515:00 23:00 07:00 IntakeIntake Total 270 ml 220 ml OutputOutput Total 40 ml 0 ml BalanceBalance 270 ml 180 ml 0 ml Results Results 24hrs Laboratory Tests Test 07/18/18 06:46 White Blood Count 7.4 Red Blood Count 4.93 Hemoglobin 14.0 Hematocrit 43.4 Mean Corpuscular Volume 88.0 Mean Corpuscular Hemoglobin 28.4 L Mean Corpuscular Hemoglobin Concent 32.3 Red Cell Distribution Width 12.9 Platelet Count 306 # Mean Platelet Volume 9.5 Immature Granulocytes % 0.700 H Neutrophils % 34.8 L Lymphocytes % 45.9 Monocytes % 8.8 Eosinophils % 7.5 H Basophils % 2.3 H Nucleated Red Blood Cells % 0.0 Immature Granulocytes # 0.050 H Neutrophils # 2.6 Lymphocytes # 3.4 H Monocytes # 0.7 Eosinophils # 0.6 H Basophils # 0.2 H Nucleated Red Blood Cells # 0.0 Sodium Level 142 Potassium Level 4.2 Chloride Level 105 Carbon Dioxide Level 30 Anion Gap 7 Blood Urea Nitrogen 23 H Creatinine 0.53 Est Glomerular Filtrat Rate mL/min > 60 Glucose Level 86 Calcium Level 9.5 Magnesium Level 1.9 Medications Medication Current Medications IV Flush (NS 3 ml) 3 ml PER PROTOCOL IV ; Start 07/01/18 at 13:00 Ondansetron HCl (Zofran Inj) 4 mg Q6H PRN IV NAUSEA/VOMITING; Start 07/01/18 at 13:00 Acetaminophen (Tylenol Tab) 650 mg Q6H PRN PO .PAIN 1-3 OR TEMP; Start 07/01/18 at 13:00 Acetaminophen/ Hydrocodone Bitart ([place] (5/325)) 1 tab Q6H PRN PO .MOD PAIN 4- 6 Last administered on 07/07/18 21:21; Admin Dose 1 TAB; Start 07/01/18 at 13:00 Morphine Sulfate (morphine) 2 mg Q4H PRN IV .SEVERE PAIN 7-10 Last administered on 07/11/18 15:32; Admin Dose 2 MG; Start 07/01/18 at 13:00 Losartan Potassium (Cozaar) 25 mg DAILY PO Last administered on 07/17/18 08:38; Admin Dose 25 MG; Start 07/01/18 at 13:30 Sodium Hypochlorite (Dakins Diluted ()) 1 applic DAILY TP Last administered on 07/17/18 08:40; Admin Dose 1 APPLIC; Start 07/02/18 at 10:00 Levofloxacin (Levaquin) 750 mg DAILY@06 PO Last administered on 07/18/18 05:57; Admin Dose 750 MG; Start 07/04/18 at 06:00; Stop 07/25/18 at 05:59 Nystatin (Nystatin Powder) 1 applic BID TOP Last administered on 07/17/18 21:00; Admin Dose 1 APPLIC; Start 07/08/18 at 09:00 Cholecalciferol (Vitamin D) 2,000 unit DAILY PO Last administered on 07/17/18 08:37; Admin Dose 2,000 UNIT; Start 07/09/18 at 09:00 Multivitamins Therapeutic (Theragran) 1 tab DAILY PO Last administered on 07/17/18 08:39; Admin Dose 1 TAB; Start 07/13/18 at 09:00 Ascorbic Acid (Vitamin C) 500 mg BID PO Last administered on 07/17/18 21:00; Admin Dose 500 MG; Start 07/13/18 at 09:00 Bacitracin (Bacitracin Oint (Ud)) 1 applic DAILY TOP Last administered on 07/17/18at 08:49; Admin Dose 1 APPLIC; Start 07/14/18 at 14:00 Heparin Sodium (Porcine) (Heparin (5000 Units/1ml)) 5,000 unit BID SC Last administered on 07/17/18at 21:05; Admin Dose 5,000 UNIT; Start 07/17/18 at 21:00 VENU BOYD July 18, 2018 09:57
[2018-07-18] MEDS: HEPARIN 5,000 UNIT/1 ML VIAL SC SCH ×2 (09:58→20:32)
[2018-07-18] MEDS: NYSTATIN 30 GM POWDER BTL TOP SCH ×2 (10:00→20:33)
[2018-07-18] MEDS: DAKINS 0.0125%(1/40) 473 ML SOLUTION TP SCH (10:01)
--- NOTE | 2018-07-18 12:05 | CONS ---
Assessment/Plan Assessment/Plan Hospital Course (Demo Recall) Alert, feels good Antimicrobials: Cefepime, Levaquin Physical examination: Well-nourished well-developed elderly woman who is awake in no distress. Head atraumatic normocephalic sclera nonicteric. Neck is supple. Chest rise symmetrical breath sounds clear. Heart: S1-S2. Abdomen soft bowel sounds present. Extremities with right lower extremity dressing with purulent and bloody drainage Assessment: 1. Right lower extremity cellulitis, chronic wound, s/p debridement 07/04/18 2. Peripheral arterial disease Plan: Remains stable, will dc abx today Consultation Date/Type/Reason Admit Date/Time Jul 01, 2018 at 11:42 Initial Consult Date Type of Consult id Date/Time of Note DATE: 07/18/18 TIME: 12:05 Exam/Review of Systems Exam Vitals Vital Signs Date Temp Pulse Resp B/P (MAP) Pulse Ox O2 O2 Flow FiO2 Time Delivery Rate 07/18/18 98.0 77 16 106/57 95 07:52 (73) 07/18/18 Room Air 02:00 Intake and Output 07/17/18 07/17/18 07/18/18 1515:00 23:00 07:00 IntakeIntake Total 270 ml 220 ml OutputOutput Total 40 ml 0 ml BalanceBalance 270 ml 180 ml 0 ml Results Result Diagram: 07/18/18 0646 07/18/18 0646 Results 24hrs Laboratory Tests Test 07/18/18 06:46 White Blood Count 7.4 Red Blood Count 4.93 Hemoglobin 14.0 Hematocrit 43.4 Mean Corpuscular Volume 88.0 Mean Corpuscular Hemoglobin 28.4 L Mean Corpuscular Hemoglobin Concent 32.3 Red Cell Distribution Width 12.9 Platelet Count 306 # Mean Platelet Volume 9.5 Immature Granulocytes % 0.700 H Neutrophils % 34.8 L Lymphocytes % 45.9 Monocytes % 8.8 Eosinophils % 7.5 H Basophils % 2.3 H Nucleated Red Blood Cells % 0.0 Immature Granulocytes # 0.050 H Neutrophils # 2.6 Lymphocytes # 3.4 H Monocytes # 0.7 Eosinophils # 0.6 H Basophils # 0.2 H Nucleated Red Blood Cells # 0.0 Sodium Level 142 Potassium Level 4.2 Chloride Level 105 Carbon Dioxide Level 30 Anion Gap 7 Blood Urea Nitrogen 23 H Creatinine 0.53 Est Glomerular Filtrat Rate mL/min > 60 Glucose Level 86 Calcium Level 9.5 Magnesium Level 1.9 Medications Medication Current Medications IV Flush (NS 3 ml) 3 ml PER PROTOCOL IV ; Start 07/01/18 at 13:00 Ondansetron HCl (Zofran Inj) 4 mg Q6H PRN IV NAUSEA/VOMITING; Start 07/01/18 at 13:00 Acetaminophen (Tylenol Tab) 650 mg Q6H PRN PO .PAIN 1-3 OR TEMP; Start 07/01/18 at 13:00 Acetaminophen/ Hydrocodone Bitart ([place] (5/325)) 1 tab Q6H PRN PO .MOD PAIN 4- 6 Last administered on 07/07/18 21:21; Admin Dose 1 TAB; Start 07/01/18 at 13:00 Morphine Sulfate (morphine) 2 mg Q4H PRN IV .SEVERE PAIN 7-10 Last administered on 07/11/18 15:32; Admin Dose 2 MG; Start 07/01/18 at 13:00 Losartan Potassium (Cozaar) 25 mg DAILY PO Last administered on 07/18/18 09:55; Admin Dose 25 MG; Start 07/01/18 at 13:30 Sodium Hypochlorite (Dakins Diluted (40)) 1 applic DAILY TP Last administered on 07/18/18 10:01; Admin Dose 1 APPLIC; Start 07/02/18 at 10:00 Levofloxacin (Levaquin) 750 mg DAILY@06 PO Last administered on 07/18/18 05:57; Admin Dose 750 MG; Start 07/04/18 at 06:00; Stop 07/25/18 at 05:59 Nystatin (Nystatin Powder) 1 applic BID TOP Last administered on 07/18/18 10:00; Admin Dose 1 APPLIC; Start 07/08/18 at 09:00 Cholecalciferol (Vitamin D) 2,000 unit DAILY PO Last administered on 07/18/18 09:56; Admin Dose 2,000 UNIT; Start 07/09/18 at 09:00 Multivitamins Therapeutic (Theragran) 1 tab DAILY PO Last administered on 07/18/18 09:54; Admin Dose 1 TAB; Start 07/13/18 at 09:00 Ascorbic Acid (Vitamin C) 500 mg BID PO Last administered on 07/18/18 09:55; Admin Dose 500 MG; Start 07/13/18 at 09:00 Bacitracin (Bacitracin Oint (Ud)) 1 applic DAILY TOP Last administered on 07/18/18 09:56; Admin Dose 1 APPLIC; Start 07/14/18 at 14:00 Heparin Sodium (Porcine) (Heparin (5000 Units/1ml)) 5,000 unit BID SC Last administered on 07/18/18 09:58; Admin Dose 5,000 UNIT; Start 07/17/18 at 21:00 SONALI DE ANDA NP July 18, 2018 12:05
[2018-07-18 14:13] VITALS: BP 103/58; PULSE 89; RESP 16
[2018-07-18 20:00] VITALS: BP 111/59; PULSE 95; RESP 18
[2018-07-19 02:00] VITALS: BP 127/71; PULSE 80; RESP 17
[2018-07-19 07:49] VITALS: BP 115/64; PULSE 75; RESP 18
[2018-07-19] MEDS: BACITRACIN 0.9 GM OINT TOP SCH (09:08)
[2018-07-19] MEDS: MULTIVITAMINS THERAPEUTIC TAB PO SCH (09:09)
[2018-07-19] MEDS: ASCORBIC ACID 500 MG TAB PO SCH ×2 (09:09→20:09)
[2018-07-19] MEDS: CHOLECALCIFEROL 2,000 UNIT CAP PO SCH (09:09)
[2018-07-19] MEDS: HEPARIN 5,000 UNIT/1 ML VIAL SC SCH ×2 (09:10→20:10)
[2018-07-19] MEDS: LOSARTAN 25 MG TAB PO SCH (09:10)
[2018-07-19] MEDS: DAKINS 0.0125%(1/40) 473 ML SOLUTION TP SCH (09:11)
[2018-07-19] MEDS: NYSTATIN 30 GM POWDER BTL TOP SCH ×2 (09:11→20:09)
--- NOTE | 2018-07-19 11:06 | PN ---
Date/Time of Note Date/Time of Note DATE: 07/19/18 TIME: 11:06 Assessment/Plan VTE Prophylaxis Risk score (from Nsg)>0 risk: 4 SCD applied (from Nsg): Yes Pharmacological prophylaxis: heparin Lines/Catheters IV Catheter Type (from Nrs): Saline Lock Urinary Cath still in place: No Assessment/Plan Hospital Course SUBJECTIVE: No acute overnight episodes. OBJECTIVE: Vital signs-see below PHYSICAL EXAM: Constitutional: Well-developed, well-nourished not in acute distress. HEENT: Head atraumatic and normocephalic. Eyes: Extraocular muscles intact. Anicteric sclerae. Pupils equal bilaterally, reactive to light. NECK: Supple without lymph node. CHEST: Clear and good breath sounds equally. No wheezing. No rhonchi. HEART: S1, S2. Regular rate and rhythm. ABDOMEN: Soft with no rebound tenderness. Bowel sounds were present. EXTREMITIES: RLE covered with LUCRETIA wrap/dressing c/d/i. Full range of motion in all the extremities. No cyanosis, clubbing or edema. NEUROLOGIC: Alert and oriented x3. No focal deficit. No sensory deficit. PSYCHOSOCIAL: In a good mood. No signs of depression. INTEGUMENTARY:moist mucous membranes. Good skin turgor, intact. ASSESSMENT AND PLAN:62 yo female who is also homeless/lives in trailer here w/ large right lower leg ulceration of unclear etiology RLE Ulceration/Cellulitis: - s/p operative management by Dr Grullon - Wound vac per surgery - Abx per ID- last dose on July 18 Hypertension: - Losartan Homelessness -She lives in her trailer. She needs wound care/wound VAC for a few more weeks. -Plan is placing in a half-way which is also somewhat difficult secondary to her homelessness/insurance limitation status. DVT prophylaxis. -Left lower extremity SCD. Dc planning:CM following on SNF Placement. Insurance limitation and home lessness is a major barrier in finding half-way. Patient with no family support available to take her back home with home health. PT eval. Result Diagram: 07/19/1862307/19/1824 Results 24hrs Laboratory Tests Test 07/19/18 06:24 White Blood Count 6.5 Red Blood Count 5.18 Hemoglobin 14.5 Hematocrit 45.9 Mean Corpuscular Volume 88.6 Mean Corpuscular Hemoglobin 28.0 L Mean Corpuscular Hemoglobin Concent 31.6 L Red Cell Distribution Width 12.5 Platelet Count 285 Mean Platelet Volume 9.4 Immature Granulocytes % 0.800 H Neutrophils % 35.6 L Lymphocytes % 44.9 Monocytes % 8.8 Eosinophils % 7.7 H Basophils % 2.2 H Nucleated Red Blood Cells % 0.0 Immature Granulocytes # 0.050 H Neutrophils # 2.3 Lymphocytes # 2.9 Monocytes # 0.6 Eosinophils # 0.5 Basophils # 0.1 Nucleated Red Blood Cells # 0.0 Sodium Level 140 Potassium Level 4.7 Chloride Level 103 Carbon Dioxide Level 31 Anion Gap 6 Blood Urea Nitrogen 25 H Creatinine 0.54 Est Glomerular Filtrat Rate mL/min > 60 Glucose Level 90 Calcium Level 9.6 Exam/Review of Systems Exam Vitals Vital Signs Date Temp Pulse Resp B/P (MAP) Pulse Ox O2 O2 Flow FiO2 Time Delivery Rate 07/19/18 98.4 75 18 115/64 97 07:49 (81) 07/18/18 Room Air 02:00 Intake and Output 07/18/18 07/18/18 07/19/18 1515:00 23:00 07:00 IntakeIntake Total 1400 ml OutputOutput Total 0 ml BalanceBalance 1400 ml 0 ml Results Results 24hrs Laboratory Tests Test 07/19/18 06:24 White Blood Count 6.5 Red Blood Count 5.18 Hemoglobin 14.5 Hematocrit 45.9 Mean Corpuscular Volume 88.6 Mean Corpuscular Hemoglobin 28.0 L Mean Corpuscular Hemoglobin Concent 31.6 L Red Cell Distribution Width 12.5 Platelet Count 285 Mean Platelet Volume 9.4 Immature Granulocytes % 0.800 H Neutrophils % 35.6 L Lymphocytes % 44.9 Monocytes % 8.8 Eosinophils % 7.7 H Basophils % 2.2 H Nucleated Red Blood Cells % 0.0 Immature Granulocytes # 0.050 H Neutrophils # 2.3 Lymphocytes # 2.9 Monocytes # 0.6 Eosinophils # 0.5 Basophils # 0.1 Nucleated Red Blood Cells # 0.0 Sodium Level 140 Potassium Level 4.7 Chloride Level 103 Carbon Dioxide Level 31 Anion Gap 6 Blood Urea Nitrogen 25 H Creatinine 0.54 Est Glomerular Filtrat Rate mL/min > 60 Glucose Level 90 Calcium Level 9.6 Medications Medication Current Medications IV Flush (NS 3 ml) 3 ml PER PROTOCOL IV ; Start 07/01/18 at 13:00 Ondansetron HCl (Zofran Inj) 4 mg Q6H PRN IV NAUSEA/VOMITING; Start 07/01/18 at 13:00 Acetaminophen (Tylenol Tab) 650 mg Q6H PRN PO .PAIN 1-3 OR TEMP; Start 07/01/18 at 13:00 Acetaminophen/ Hydrocodone Bitart ([place] (5/325)) 1 tab Q6H PRN PO .MOD PAIN 4- 6 Last administered on 07/07/18 21:21; Admin Dose 1 TAB; Start 07/01/18 at 13:00 Morphine Sulfate (morphine) 2 mg Q4H PRN IV .SEVERE PAIN 7-10 Last administered on 07/11/18 15:32; Admin Dose 2 MG; Start 07/01/18 at 13:00 Losartan Potassium (Cozaar) 25 mg DAILY PO Last administered on 07/19/18 09:10; Admin Dose 25 MG; Start 07/01/18 at 13:30 Sodium Hypochlorite (Dakins Diluted ()) 1 applic DAILY TP Last administered on 07/19/18 09:11; Admin Dose 1 APPLIC; Start 07/02/18 at 10:00 Nystatin (Nystatin Powder) 1 applic BID TOP Last administered on 07/19/18 09:11; Admin Dose 1 APPLIC; Start 07/08/18 at 09:00 Cholecalciferol (Vitamin D) 2,000 unit DAILY PO Last administered on 07/19/18 09:09; Admin Dose 2,000 UNIT; Start 07/09/18 at 09:00 Multivitamins Therapeutic (Theragran) 1 tab DAILY PO Last administered on 09:09; Admin Dose 1 TAB; Start 07/13/18 at 09:00 Ascorbic Acid (Vitamin C) 500 mg BID PO Last administered on 07/19/18 09:09; Admin Dose 500 MG; Start 07/13/18 at 09:00 Bacitracin (Bacitracin Oint (Ud)) 1 applic DAILY TOP Last administered on 07/19/18 09:08; Admin Dose 1 APPLIC; Start 07/14/18 at 14:00 Heparin Sodium (Porcine) (Heparin (5000 Units/1ml)) 5,000 unit BID SC Last administered on 5/8/19at 09:10; Admin Dose 5,000 UNIT; Start 07/17/18 at 21:00 VENU BOYD July 19, 2018 11:06
--- NOTE | 2018-07-19 14:21 | CONS ---
Assessment/Plan Assessment/Plan Hospital Course (Demo Recall) No events Antimicrobials: Cefepime, Levaquin Physical examination: Well-nourished well-developed elderly woman who is awake in no distress. Head atraumatic normocephalic sclera nonicteric. Neck is supple. Chest rise symmetrical breath sounds clear. Heart: S1-S2. Abdomen soft bowel sounds present. Extremities with right lower extremity dressing with purulent and bloody drainage Assessment: 1. Right lower extremity cellulitis, chronic wound, s/p debridement 07/04/18 2. Peripheral arterial disease Plan: Remains stable, completed abx, continue wound care per podiatry Consultation Date/Type/Reason Admit Date/Time Jul 01, 2018 at 11:42 Initial Consult Date Type of Consult id Date/Time of Note DATE: 07/19/18 TIME: 14:20 Exam/Review of Systems Exam Vitals Vital Signs Date Temp Pulse Resp B/P (MAP) Pulse Ox O2 O2 Flow FiO2 Time Delivery Rate 07/19/18 98.4 75 18 115/64 97 07:49 (81) 07/18/18 Room Air 02:00 Intake and Output 07/18/18 07/18/18 07/19/18 1414:59 22:59 06:59 IntakeIntake Total 1400 ml OutputOutput Total 0 ml BalanceBalance 1400 ml 0 ml Results Result Diagram: 07/19/18 0624 07/19/18 0624 Results 24hrs Laboratory Tests Test 07/19/18 06:24 White Blood Count 6.5 Red Blood Count 5.18 Hemoglobin 14.5 Hematocrit 45.9 Mean Corpuscular Volume 88.6 Mean Corpuscular Hemoglobin 28.0 L Mean Corpuscular Hemoglobin Concent 31.6 L Red Cell Distribution Width 12.5 Platelet Count 285 Mean Platelet Volume 9.4 Immature Granulocytes % 0.800 H Neutrophils % 35.6 L Lymphocytes % 44.9 Monocytes % 8.8 Eosinophils % 7.7 H Basophils % 2.2 H Nucleated Red Blood Cells % 0.0 Immature Granulocytes # 0.050 H Neutrophils # 2.3 Lymphocytes # 2.9 Monocytes # 0.6 Eosinophils # 0.5 Basophils # 0.1 Nucleated Red Blood Cells # 0.0 Sodium Level 140 Potassium Level 4.7 Chloride Level 103 Carbon Dioxide Level 31 Anion Gap 6 Blood Urea Nitrogen 25 H Creatinine 0.54 Est Glomerular Filtrat Rate mL/min > 60 Glucose Level 90 Calcium Level 9.6 Medications Medication Current Medications IV Flush (NS 3 ml) 3 ml PER PROTOCOL IV ; Start 07/01/18 at 13:00 Ondansetron HCl (Zofran Inj) 4 mg Q6H PRN IV NAUSEA/VOMITING; Start 07/01/18 at 13:00 Acetaminophen (Tylenol Tab) 650 mg Q6H PRN PO .PAIN 1-3 OR TEMP; Start 07/01/18 at 13:00 Acetaminophen/ Hydrocodone Bitart ([place] (5/325)) 1 tab Q6H PRN PO .MOD PAIN 4- 6 Last administered on 07/07/18 21:21; Admin Dose 1 TAB; Start 07/01/18 at 13:00 Morphine Sulfate (morphine) 2 mg Q4H PRN IV .SEVERE PAIN 7-10 Last administered on 07/11/18 15:32; Admin Dose 2 MG; Start 07/01/18 at 13:00 Losartan Potassium (Cozaar) 25 mg DAILY PO Last administered on 07/19/18 09:10; Admin Dose 25 MG; Start 07/01/18 at 13:30 Sodium Hypochlorite (Dakins Diluted (40)) 1 applic DAILY TP Last administered on 07/19/18 09:11; Admin Dose 1 APPLIC; Start 07/02/18 at 10:00 Nystatin (Nystatin Powder) 1 applic BID TOP Last administered on 07/19/18 09:11; Admin Dose 1 APPLIC; Start 07/08/18 at 09:00 Cholecalciferol (Vitamin D) 2,000 unit DAILY PO Last administered on 07/19/18 09:09; Admin Dose 2,000 UNIT; Start 07/09/18 at 09:00 Multivitamins Therapeutic (Theragran) 1 tab DAILY PO Last administered on 07/19/18 09:09; Admin Dose 1 TAB; Start 07/13/18 at 09:00 Ascorbic Acid (Vitamin C) 500 mg BID PO Last administered on 07/19/18 09:09; Admin Dose 500 MG; Start 07/13/18 at 09:00 Bacitracin (Bacitracin Oint (Ud)) 1 applic DAILY TOP Last administered on 07/19/18 09:08; Admin Dose 1 APPLIC; Start 07/14/18 at 14:00 Heparin Sodium (Porcine) (Heparin (5000 Units/1ml)) 5,000 unit BID SC Last administered on 07/19/18at 09:10; Admin Dose 5,000 UNIT; Start 07/17/18 at 21:00 SONALI DE ANDA NP July 19, 2018 14:21
[2018-07-19 14:46] VITALS: BP 101/56; PULSE 80; RESP 16
[2018-07-19 20:00] VITALS: BP 122/56; PULSE 68; RESP 18
[2018-07-20 02:00] VITALS: BP 103/56; PULSE 70; RESP 17
[2018-07-20 08:12] VITALS: BP 115/70; PULSE 71; RESP 18
[2018-07-20] MEDS: LOSARTAN 25 MG TAB PO SCH (08:27)
[2018-07-20] MEDS: CHOLECALCIFEROL 2,000 UNIT CAP PO SCH (08:27)
[2018-07-20] MEDS: ASCORBIC ACID 500 MG TAB PO SCH ×2 (08:27→20:09)
[2018-07-20] MEDS: HEPARIN 5,000 UNIT/1 ML VIAL SC SCH ×2 (08:28→20:15)
[2018-07-20] MEDS: MULTIVITAMINS THERAPEUTIC TAB PO SCH (08:28)
--- NOTE | 2018-07-20 11:40 | CONS ---
Assessment/Plan Assessment/Plan Hospital Course (Demo Recall) No events, afebrile, nad Antimicrobials: completed Physical examination: Well-nourished well-developed elderly woman who is awake in no distress. Head atraumatic normocephalic sclera nonicteric. Neck is supple. Chest rise symmetrical breath sounds clear. Heart: S1-S2. Abdomen soft bowel sounds present. Extremities with right lower extremity dressing with purulent and bloody drainage Assessment: 1. Right lower extremity cellulitis, chronic wound, s/p debridement 07/04/18 2. Peripheral arterial disease Plan: Remains stable, completed abx, continue wound care per podiatry Consultation Date/Type/Reason Admit Date/Time Jul 01, 2018 at 11:42 Initial Consult Date Type of Consult id Date/Time of Note DATE: 07/20/18 TIME: 11:39 Exam/Review of Systems Exam Vitals Vital Signs Date Temp Pulse Resp B/P (MAP) Pulse Ox O2 O2 Flow FiO2 Time Delivery Rate 07/20/18 97.9 71 18 115/70 99 08:12 (85) 07/18/18 Room Air 02:00 Intake and Output 07/19/18 07/19/18 07/20/18 1515:00 23:00 07:00 IntakeIntake Total 1200 ml OutputOutput Total 50 ml BalanceBalance 1200 ml -50 ml Results Result Diagram: 07/19/18 0624 07/19/18 0624 Medications Medication Current Medications IV Flush (NS 3 ml) 3 ml PER PROTOCOL IV ; Start 07/01/18 at 13:00 Ondansetron HCl (Zofran Inj) 4 mg Q6H PRN IV NAUSEA/VOMITING; Start 07/01/18 at 13:00 Acetaminophen (Tylenol Tab) 650 mg Q6H PRN PO .PAIN 1-3 OR TEMP; Start 07/01/18 at 13:00 Acetaminophen/ Hydrocodone Bitart ([place] (5/325)) 1 tab Q6H PRN PO .MOD PAIN 4- 6 Last administered on 07/07/18at 21:21; Admin Dose 1 TAB; Start 07/01/18 at 13:00 Morphine Sulfate (morphine) 2 mg Q4H PRN IV .SEVERE PAIN 7-10 Last administered on 07/11/18at 15:32; Admin Dose 2 MG; Start 07/01/18 at 13:00 Losartan Potassium (Cozaar) 25 mg DAILY PO Last administered on 07/20/18 08:27; Admin Dose 25 MG; Start 07/01/18 at 13:30 Sodium Hypochlorite (Dakins Diluted (40)) 1 applic DAILY TP Last administered on 07/19/18 09:11; Admin Dose 1 APPLIC; Start 07/02/18 at 10:00 Nystatin (Nystatin Powder) 1 applic BID TOP Last administered on 07/19/18 20:09; Admin Dose 1 APPLIC; Start 07/08/18 at 09:00 Cholecalciferol (Vitamin D) 2,000 unit DAILY PO Last administered on 07/20/18 08:27; Admin Dose 2,000 UNIT; Start 07/09/18 at 09:00 Multivitamins Therapeutic (Theragran) 1 tab DAILY PO Last administered on 07/20/18 08:28; Admin Dose 1 TAB; Start 07/13/18 at 09:00 Ascorbic Acid (Vitamin C) 500 mg BID PO Last administered on 07/20/18 08:27; Admin Dose 500 MG; Start 07/13/18 at 09:00 Bacitracin (Bacitracin Oint (Ud)) 1 applic DAILY TOP Last administered on 07/19/18 09:08; Admin Dose 1 APPLIC; Start 07/14/18 at 14:00 Heparin Sodium (Porcine) (Heparin (5000 Units/1ml)) 5,000 unit BID SC Last administered on 07/20/18 08:28; Admin Dose 5,000 UNIT; Start 07/17/18 at 21:00 SONALI DE ANDA NP July 20, 2018 11:40
[2018-07-20] MEDS: DAKINS 0.0125%(1/40) 473 ML SOLUTION TP SCH (12:29)
[2018-07-20] MEDS: NYSTATIN 30 GM POWDER BTL TOP SCH ×2 (12:29→20:10)
[2018-07-20] MEDS: BACITRACIN 0.9 GM OINT TOP SCH (12:29)
[2018-07-20 14:00] VITALS: BP 124/74; PULSE 75; RESP 17
[2018-07-20 19:43] VITALS: BP 100/55; PULSE 93; RESP 18
[2018-07-21 02:08] VITALS: BP 116/66; PULSE 83; RESP 17
[2018-07-21 07:30] VITALS: BP 108/61; PULSE 70; RESP 18
[2018-07-21] MEDS: LOSARTAN 25 MG TAB PO SCH (09:00)
[2018-07-21] MEDS: MULTIVITAMINS THERAPEUTIC TAB PO SCH (09:01)
[2018-07-21] MEDS: BACITRACIN 0.9 GM OINT TOP SCH (09:01)
[2018-07-21] MEDS: CHOLECALCIFEROL 2,000 UNIT CAP PO SCH (09:01)
[2018-07-21] MEDS: ASCORBIC ACID 500 MG TAB PO SCH ×2 (09:01→20:51)
[2018-07-21] MEDS: NYSTATIN 30 GM POWDER BTL TOP SCH ×2 (09:04→20:52)
[2018-07-21] MEDS: DAKINS 0.0125%(1/40) 473 ML SOLUTION TP SCH (09:04)
[2018-07-21] MEDS: HEPARIN 5,000 UNIT/1 ML VIAL SC SCH ×2 (09:04→20:54)
--- NOTE | 2018-07-21 11:54 | CONS ---
Assessment/Plan Assessment/Plan Hospital Course (Demo Recall) No events overnight, looks comfortable Antimicrobials: completed Physical examination: Well-nourished well-developed elderly woman who is awake in no distress. Head atraumatic normocephalic sclera nonicteric. Neck is supple. Chest rise symmetrical breath sounds clear. Heart: S1-S2. Abdomen soft bowel sounds present. Extremities with right lower extremity dressing with purulent and bloody drainage Assessment: 1. Right lower extremity cellulitis, chronic wound, s/p debridement 07/04/18 2. Peripheral arterial disease Plan: Remains stable, completed abx, continue wound care per podiatry Consultation Date/Type/Reason Admit Date/Time Jul 01, 2018 at 11:42 Initial Consult Date Type of Consult id Date/Time of Note DATE: 07/21/18 TIME: 11:54 Exam/Review of Systems Exam Vitals Vital Signs Date Temp Pulse Resp B/P (MAP) Pulse Ox O2 O2 Flow FiO2 Time Delivery Rate 07/21/18 97.7 70 18 108/61 99 Room Air 07:30 (77) Intake and Output 07/20/18 07/20/18 07/21/18 1515:00 23:00 07:00 IntakeIntake Total 1100 ml OutputOutput Total 100 ml 0 ml BalanceBalance 1000 ml 0 ml Results Result Diagram: 07/21/18 0639 07/21/18 0639 Results 24hrs Laboratory Tests Test 07/21/18 06:39 White Blood Count 6.6 Red Blood Count 5.12 Hemoglobin 14.4 Hematocrit 45.7 Mean Corpuscular Volume 89.3 Mean Corpuscular Hemoglobin 28.1 L Mean Corpuscular Hemoglobin Concent 31.5 L Red Cell Distribution Width 12.6 Platelet Count 296 Mean Platelet Volume 9.5 Immature Granulocytes % 0.600 H Neutrophils % 33.5 L Lymphocytes % 47.1 Monocytes % 8.2 Eosinophils % 8.8 H Basophils % 1.8 Nucleated Red Blood Cells % 0.0 Immature Granulocytes # 0.040 H Neutrophils # 2.2 Lymphocytes # 3.1 H Monocytes # 0.5 Eosinophils # 0.6 H Basophils # 0.1 Nucleated Red Blood Cells # 0.0 Sodium Level 140 Potassium Level 4.7 Chloride Level 102 Carbon Dioxide Level 31 Anion Gap 7 Blood Urea Nitrogen 26 H Creatinine 0.52 Est Glomerular Filtrat Rate mL/min > 60 Glucose Level 92 Calcium Level 9.5 Medications Medication Current Medications IV Flush (NS 3 ml) 3 ml PER PROTOCOL IV ; Start 07/01/18 at 13:00 Ondansetron HCl (Zofran Inj) 4 mg Q6H PRN IV NAUSEA/VOMITING; Start 07/01/18 at 13:00 Acetaminophen (Tylenol Tab) 650 mg Q6H PRN PO .PAIN 1-3 OR TEMP; Start 07/01/18 at 13:00 Acetaminophen/ Hydrocodone Bitart ([place] (5/325)) 1 tab Q6H PRN PO .MOD PAIN 4- 6 Last administered on 07/07/18 21:21; Admin Dose 1 TAB; Start 07/01/18 at 13:00 Morphine Sulfate (morphine) 2 mg Q4H PRN IV .SEVERE PAIN 7-10 Last administered on 07/11/18 15:32; Admin Dose 2 MG; Start 07/01/18 at 13:00 Losartan Potassium (Cozaar) 25 mg DAILY PO Last administered on 07/20/18 08:27; Admin Dose 25 MG; Start 07/01/18 at 13:30 Sodium Hypochlorite (Dakins Diluted (1/40)) 1 applic DAILY TP Last administered on 07/21/18 09:04; Admin Dose 1 APPLIC; Start 07/02/18 at 10:00 Nystatin (Nystatin Powder) 1 applic BID TOP Last administered on 07/21/18 09:04; Admin Dose 1 APPLIC; Start 07/08/18 at 09:00 Cholecalciferol (Vitamin D) 2,000 unit DAILY PO Last administered on 07/21/18 09:01; Admin Dose 2,000 UNIT; Start 07/09/18 at 09:00 Multivitamins Therapeutic (Theragran) 1 tab DAILY PO Last administered on 07/21/18 09:01; Admin Dose 1 TAB; Start 07/13/18 at 09:00 Ascorbic Acid (Vitamin C) 500 mg BID PO Last administered on 07/21/18 09:01; Admin Dose 500 MG; Start 07/13/18 at 09:00 Bacitracin (Bacitracin Oint (Ud)) 1 applic DAILY TOP Last administered on 07/21/18 09:01; Admin Dose 1 APPLIC; Start 07/14/18 at 14:00 Heparin Sodium (Porcine) (Heparin (5000 Units/1ml)) 5,000 unit BID SC Last administered on 07/21/18at 09:04; Admin Dose 5,000 UNIT; Start 07/17/18 at 21:00 SONALI DE ANDA NP July 21, 2018 11:54
--- NOTE | 2018-07-21 12:07 | CONS ---
Assessment/Plan Assessment/Plan Assessment/Plan (Daily) Chronic Right lower extremity ulceration mixed etiology - s/p excisional debridement with wound VAC application RLE cellulitis Venous insufficiency Edema Leukocytosis - resolved Plan Patient has shown significant improvement with wound VAC use during hospitalization. Patient is planned for discharge tomorrow. Patient may discontinue use of wound VAC and no need to continue with home VAC. Patient would need to follow up in outpatient APC clinic here at [facility]. Xeroform, 4x4 gauze, kerlix and anderson wrap for dressings. Patient may weight bear as tolerated. Patient will need higher level of insurance to be able to follow up in the outpatient wound clinic. Consultation Date/Type/Reason Admit Date/Time Jul 01, 2018 at 11:42 Initial Consult Date Date/Time of Note DATE: 07/21/18 TIME: 12:07 24 HR Interval Summary Free Text/Dictation No acute events overnight. Exam/Review of Systems Exam Vitals Vital Signs Date Temp Pulse Resp B/P (MAP) Pulse Ox O2 O2 Flow FiO2 Time Delivery Rate 07/21/18 97.7 70 18 108/61 99 Room Air 07:30 (77) Intake and Output 07/20/18 07/20/18 07/21/18 1515:00 23:00 07:00 IntakeIntake Total 1100 ml OutputOutput Total 100 ml 0 ml BalanceBalance 1000 ml 0 ml Exam DP/PT pulses palpable Popliteal pulses weakly palpable Protective sensations intact pedal hairs present Right lateral leg ulcer mid diaphyseal region measuring 12 x 8 x 0.2cm with granular wound base. No proximal streaking, no active drainage, no probing to bone, no purulence Muscle strength 5/5 in all compartments of the foot Results Result Diagram: 07/21/18 0639 07/21/18 0639 Results 24hrs Laboratory Tests Test 07/21/18 06:39 White Blood Count 6.6 Red Blood Count 5.12 Hemoglobin 14.4 Hematocrit 45.7 Mean Corpuscular Volume 89.3 Mean Corpuscular Hemoglobin 28.1 L Mean Corpuscular Hemoglobin Concent 31.5 L Red Cell Distribution Width 12.6 Platelet Count 296 Mean Platelet Volume 9.5 Immature Granulocytes % 0.600 H Neutrophils % 33.5 L Lymphocytes % 47.1 Monocytes % 8.2 Eosinophils % 8.8 H Basophils % 1.8 Nucleated Red Blood Cells % 0.0 Immature Granulocytes # 0.040 H Neutrophils # 2.2 Lymphocytes # 3.1 H Monocytes # 0.5 Eosinophils # 0.6 H Basophils # 0.1 Nucleated Red Blood Cells # 0.0 Sodium Level 140 Potassium Level 4.7 Chloride Level 102 Carbon Dioxide Level 31 Anion Gap 7 Blood Urea Nitrogen 26 H Creatinine 0.52 Est Glomerular Filtrat Rate mL/min > 60 Glucose Level 92 Calcium Level 9.5 Medications Medication Current Medications IV Flush (NS 3 ml) 3 ml PER PROTOCOL IV ; Start 07/01/18 at 13:00 Ondansetron HCl (Zofran Inj) 4 mg Q6H PRN IV NAUSEA/VOMITING; Start 07/01/18 at 13:00 Acetaminophen (Tylenol Tab) 650 mg Q6H PRN PO .PAIN 1-3 OR TEMP; Start 07/01/18 at 13:00 Acetaminophen/ Hydrocodone Bitart ([place] (5/325)) 1 tab Q6H PRN PO .MOD PAIN 4- 6 Last administered on 07/07/18 21:21; Admin Dose 1 TAB; Start 07/01/18 at 13:00 Morphine Sulfate (morphine) 2 mg Q4H PRN IV .SEVERE PAIN 7-10 Last administered on 07/11/18 15:32; Admin Dose 2 MG; Start 07/01/18 at 13:00 Losartan Potassium (Cozaar) 25 mg DAILY PO Last administered on 07/20/18 08:27; Admin Dose 25 MG; Start 07/01/18 at 13:30 Sodium Hypochlorite (Dakins Diluted (40)) 1 applic DAILY TP Last administered on 07/21/18 09:04; Admin Dose 1 APPLIC; Start 07/02/18 at 10:00 Nystatin (Nystatin Powder) 1 applic BID TOP Last administered on 07/21/18 09:04; Admin Dose 1 APPLIC; Start 07/08/18 at 09:00 Cholecalciferol (Vitamin D) 2,000 unit DAILY PO Last administered on 07/21/18 09:01; Admin Dose 2,000 UNIT; Start 07/09/18 at 09:00 Multivitamins Therapeutic (Theragran) 1 tab DAILY PO Last administered on 07/21/18 09:01; Admin Dose 1 TAB; Start 07/13/18 at 09:00 Ascorbic Acid (Vitamin C) 500 mg BID PO Last administered on 07/21/18 09:01; Admin Dose 500 MG; Start 07/13/18 at 09:00 Bacitracin (Bacitracin Oint (Ud)) 1 applic DAILY TOP Last administered on 07/21/18 09:01; Admin Dose 1 APPLIC; Start 07/14/18 at 14:00 Heparin Sodium (Porcine) (Heparin (5000 Units/1ml)) 5,000 unit BID SC Last administered on 07/21/18 09:04; Admin Dose 5,000 UNIT; Start 07/17/18 at 21:00 KELY PATE DPM July 21, 2018 12:07
[2018-07-21 14:40] VITALS: BP_SYST 87; RESP 16
--- NOTE | 2018-07-21 14:50 | PN ---
Date/Time of Note Date/Time of Note DATE: 07/21/18 TIME: 14:46 Assessment/Plan VTE Prophylaxis Risk score (from Nsg)>0 risk: 3 SCD applied (from Nsg): Yes Pharmacological prophylaxis: heparin Lines/Catheters IV Catheter Type (from Nrsg): Saline Lock Urinary Cath still in place: No Assessment/Plan Hospital Course SUBJECTIVE: No acute overnight episodes. OBJECTIVE: Vital signs-see below PHYSICAL EXAM: Constitutional: Well-developed, well-nourished not in acute distress. HEENT: Head atraumatic and normocephalic. Eyes: Extraocular muscles intact. Anicteric sclerae. Pupils equal bilaterally, reactive to light. NECK: Supple without lymph node. CHEST: Clear and good breath sounds equally. No wheezing. No rhonchi. HEART: S1, S2. Regular rate and rhythm. ABDOMEN: Soft with no rebound tenderness. Bowel sounds were present. EXTREMITIES: RLE covered with LUCRETIA wrap/dressing c/d/i. Full range of motion in all the extremities. No cyanosis, clubbing or edema. NEUROLOGIC: Alert and oriented x3. No focal deficit. No sensory deficit. PSYCHOSOCIAL: In a good mood. No signs of depression. INTEGUMENTARY:moist mucous membranes. Good skin turgor, intact. ASSESSMENT AND PLAN:62 yo female who is also homeless/lives in trailer here w/ large right lower leg ulceration of unclear etiology RLE Ulceration/Cellulitis: - s/p operative management by Dr Grullon - Wound vac per surgery - Abx per ID- last dose on July 18 Hypertension: - Losartan Social issues -Was renting a trailer. but has not worked since admission. -we were unsuccessful with SNF placement DVT prophylaxis. -Left lower extremity SCD. Dc planning: Family has finally consented to pick patient up and care for her. They will pick her up tomorrow with for PT and wound care. She has completed abx therapy. Per podiatry: Patient has shown significant improvement with wound VAC use during hospitalization. Patient is planned for discharge tomorrow. Patient may discontinue use of wound VAC and no need to continue with home VAC. Patient would need to follow up in outpatient APC clinic here at [facility]. Xeroform, 4x4 gauze, kerlix and lucretia wrap for dressings. Patient may weight bear as tolerated. Result Diagram: 07/21/1839 07/21/18 0639 Results 24hrs Laboratory Tests Test 07/21/18 06:39 White Blood Count 6.6 Red Blood Count 5.12 Hemoglobin 14.4 Hematocrit 45.7 Mean Corpuscular Volume 89.3 Mean Corpuscular Hemoglobin 28.1 L Mean Corpuscular Hemoglobin Concent 31.5 L Red Cell Distribution Width 12.6 Platelet Count 296 Mean Platelet Volume 9.5 Immature Granulocytes % 0.600 H Neutrophils % 33.5 L Lymphocytes % 47.1 Monocytes % 8.2 Eosinophils % 8.8 H Basophils % 1.8 Nucleated Red Blood Cells % 0.0 Immature Granulocytes # 0.040 H Neutrophils # 2.2 Lymphocytes # 3.1 H Monocytes # 0.5 Eosinophils # 0.6 H Basophils # 0.1 Nucleated Red Blood Cells # 0.0 Sodium Level 140 Potassium Level 4.7 Chloride Level 102 Carbon Dioxide Level 31 Anion Gap 7 Blood Urea Nitrogen 26 H Creatinine 0.52 Est Glomerular Filtrat Rate mL/min > 60 Glucose Level 92 Calcium Level 9.5 Exam/Review of Systems Exam Vitals Vital Signs Date Temp Pulse Resp B/P (MAP) Pulse Ox O2 O2 Flow FiO2 Time Delivery Rate 07/21/18 97.7 70 18 108/61 99 Room Air 07:30 (77) Intake and Output 07/20/18 07/20/18 07/21/18 1515:00 23:00 07:00 IntakeIntake Total 1100 ml OutputOutput Total 100 ml 0 ml BalanceBalance 1000 ml 0 ml Results Results 24hrs Laboratory Tests Test 07/21/18 06:39 White Blood Count 6.6 Red Blood Count 5.12 Hemoglobin 14.4 Hematocrit 45.7 Mean Corpuscular Volume 89.3 Mean Corpuscular Hemoglobin 28.1 L Mean Corpuscular Hemoglobin Concent 31.5 L Red Cell Distribution Width 12.6 Platelet Count 296 Mean Platelet Volume 9.5 Immature Granulocytes % 0.600 H Neutrophils % 33.5 L Lymphocytes % 47.1 Monocytes % 8.2 Eosinophils % 8.8 H Basophils % 1.8 Nucleated Red Blood Cells % 0.0 Immature Granulocytes # 0.040 H Neutrophils # 2.2 Lymphocytes # 3.1 H Monocytes # 0.5 Eosinophils # 0.6 H Basophils # 0.1 Nucleated Red Blood Cells # 0.0 Sodium Level 140 Potassium Level 4.7 Chloride Level 102 Carbon Dioxide Level 31 Anion Gap 7 Blood Urea Nitrogen 26 H Creatinine 0.52 Est Glomerular Filtrat Rate mL/min > 60 Glucose Level 92 Calcium Level 9.5 Medications Medication Current Medications IV Flush (NS 3 ml) 3 ml PER PROTOCOL IV ; Start 07/01/18 at 13:00 Ondansetron HCl (Zofran Inj) 4 mg Q6H PRN IV NAUSEA/VOMITING; Start 07/01/18 at 13:00 Acetaminophen (Tylenol Tab) 650 mg Q6H PRN PO .PAIN 1-3 OR TEMP; Start 07/01/18 at 13:00 Acetaminophen/ Hydrocodone Bitart ([place] (5/325)) 1 tab Q6H PRN PO .MOD PAIN 4- 6 Last administered on 07/07/18 21:21; Admin Dose 1 TAB; Start 07/01/18 at 13:00 Morphine Sulfate (morphine) 2 mg Q4H PRN IV .SEVERE PAIN 7-10 Last administered on 07/11/18 15:32; Admin Dose 2 MG; Start 07/01/18 at 13:00 Losartan Potassium (Cozaar) 25 mg DAILY PO Last administered on 07/20/18 08:27; Admin Dose 25 MG; Start 07/01/18 at 13:30 Sodium Hypochlorite (Dakins Diluted (40)) 1 applic DAILY TP Last administered on 07/21/18 09:04; Admin Dose 1 APPLIC; Start 07/02/18 at 10:00 Nystatin (Nystatin Powder) 1 applic BID TOP Last administered on 07/21/18 09:04; Admin Dose 1 APPLIC; Start 07/08/18 at 09:00 Cholecalciferol (Vitamin D) 2,000 unit DAILY PO Last administered on 07/21/18 09:01; Admin Dose 2,000 UNIT; Start 07/09/18 at 09:00 Multivitamins Therapeutic (Theragran) 1 tab DAILY PO Last administered on 07/21/18 09:01; Admin Dose 1 TAB; Start 07/13/18 at 09:00 Ascorbic Acid (Vitamin C) 500 mg BID PO Last administered on 07/21/18 09:01; Admin Dose 500 MG; Start 07/13/18 at 09:00 Bacitracin (Bacitracin Oint (Ud)) 1 applic DAILY TOP Last administered on 07/21/18at 09:01; Admin Dose 1 APPLIC; Start 07/14/18 at 14:00 Heparin Sodium (Porcine) (Heparin (5000 Units/1ml)) 5,000 unit BID SC Last administered on 07/21/18at 09:04; Admin Dose 5,000 UNIT; Start 07/17/18 at 21:00 VENU BOYD July 21, 2018 14:50
[2018-07-21 20:00] VITALS: BP 97/53; PULSE 81; RESP 18
[2018-07-22 02:00] VITALS: BP 110/61; PULSE 69; RESP 18
[2018-07-22 07:35] VITALS: BP 122/60; PULSE 67; RESP 16
[2018-07-22] MEDS: HEPARIN 5,000 UNIT/1 ML VIAL SC SCH (08:23)
[2018-07-22] MEDS: BACITRACIN 0.9 GM OINT TOP SCH (08:23)
[2018-07-22] MEDS: ASCORBIC ACID 500 MG TAB PO SCH (08:24)
[2018-07-22] MEDS: MULTIVITAMINS THERAPEUTIC TAB PO SCH (08:24)
[2018-07-22] MEDS: CHOLECALCIFEROL 2,000 UNIT CAP PO SCH (08:24)
[2018-07-22] MEDS: LOSARTAN 25 MG TAB PO SCH (08:24)
[2018-07-22] MEDS: NYSTATIN 30 GM POWDER BTL TOP SCH (08:24)
[2018-07-22] MEDS: DAKINS 0.0125%(1/40) 473 ML SOLUTION TP SCH (08:25)
[2018-07-22] MEDS ORDERED: ASC500 PO (10:29)
[2018-07-22] MEDS ORDERED: CHOL200073 PO (10:29)
[2018-07-22] MEDS ORDERED: MULTI PO (10:29)
[2018-07-22] MEDS ORDERED: LOSA25TA2 PO (10:29)
--- NOTE | 2018-07-22 10:42 | PDOCDIS ---
Discharge Instructions CONDITION [id number] Patient Condition: [id number] Stable FOLLOW UP/APPOINTMENTS Follow-up Plan 1. Please follow-up with Dr. Yusef Grullon, flight coordinator, at his office within 1 week. 2. Please follow-up with your primary care doctor to manage her high blood pressure. ALEXANDER COPE July 22, 2018 10:42
--- NOTE | 2018-07-22 10:46 | DS ---
Date/Time of Note Date/Time of Note DATE: 07/22/18 TIME: 10:46 Discharge Summary Admission/Discharge Info Admit Date/Time Jul 01, 2018 at 11:42 Discharge Date/Time Patient Condition: Stable Hospital Course Patient is a female with a past medical history significant for hypertension who was admitted for lower extremity cellulitis and ulcer. Patient had an extended stay here in the hospital and was seen by both podiatry and infectious disease. Patient is now status post operative management from podiatry and is stable to follow-up in the outpatient setting for skin graft. Patient is doing well, will have wound VAC removed prior to discharge and will be discharged to a friend or sister's house with home health physical therapy and home health wound care. Antibiotics have been finished and patient feels no pain in the leg. Patient will also be given a prescription for a low-dose of antihypertensive and was instructed to follow-up with her primary care provider and protection [employer] as soon as possible. Discharge diagnosis lower extremity ulceration with cellulitis, status post operative management Hypertension Debility, secondary to above ulcer and cellulitis Home Meds Active Scripts Multivitamins* (Theragran*) 1 Tab Tab, 1 TAB PO DAILY for 30 Days, #30 TAB Prov:ALEXANDER COPE 07/22/18 Cholecalciferol (Vitamin D3) (VITAMIN D-3) 2,000 Unit Capsule, 2000 UNIT PO DAILY for 30 Days, #30 CAP Prov:ALEXANDER COPE 07/22/18 Ascorbic Acid (Vitamin C) 500 Mg Tab, 500 MG PO BID for 30 Days, #60 TAB Prov:ALEXANDER COPE 07/22/18 Losartan Potassium* (Cozaar*) 25 Mg Tablet, 12.5 MG PO DAILY for 30 Days, #15 TAB 1 Refill Prov:ALEXANDER COPE 07/22/18 Follow-up Plan 1. Please follow-up with Dr. Yusef Grullon, protection chief [employer], at his office within 1 week. 2. Please follow-up with your primary care doctor to manage her high blood pressure. Primary Care Provider Care Physician No Primary Time spent on discharge: > 30 minutes ALEXANDER COPE July 22, 2018 10:46
[2018-07-22 14:20] VITALS: BP 101/60; PULSE 87; RESP 18
== END 2018-07-22 17:20 | disposition home health service (06) | DRG 264 ==
LOC: E/R 09:25 → PP2 11:42
PROVIDERS: ADMIT Internal Medicine; ATTEND Internal Medicine
PROC: 0JBN0ZX Excision of Right Lower Leg Subcutaneous Tissue and Fascia, Open Approach, Diagnostic (ICD-10-PCS; 2018-07-04)
PROC: 0JBN0ZZ Excision of Right Lower Leg Subcutaneous Tissue and Fascia, Open Approach (ICD-10-PCS; principal; 2018-07-04 07:30)
DX: I70.238 Atherosclerosis of native arteries of right leg with ulceration of other part of lower leg (principal); L03.115 Cellulitis of right lower limb; I10 Essential (primary) hypertension; D72.829 Elevated white blood cell count, unspecified; B95.62 Methicillin resistant Staphylococcus aureus infection as the cause of diseases classified elsewhere; B96.5 Pseudomonas (aeruginosa) (mallei) (pseudomallei) as the cause of diseases classified elsewhere; B95.1 Streptococcus, group B, as the cause of diseases classified elsewhere; R60.9 Edema, unspecified; E55.9 Vitamin D deficiency, unspecified; I87.8 Other specified disorders of veins
CPT/HCPCS: 36415; 71045; 73700; 73721; 80048; 80053; 80061; 80202; 82306; 82652; 83036; 83605; 83735; 84100; 85025; 85610; 85651; 85730; 86140; 87070; 88304; 90389; 93005; 93922; 93970; 96374; 96375; 97161; J0690; J0692; J1170; J1644; J2175; J2185; J2250; J2270; J3010; J3370; J7030; Q9967